=== PATIENT | female | born 1940 | race Caucasian/White ===

== ENCOUNTER 2019-04-21 19:33 | Inpatient (IN) | payer MEDICARE ==
--- NOTE | 2019-04-21 19:53 | ED ---
Abdominal Pain/Female - HPI Summary HPI Summary: This pt is an 87 Y/O F presenting to [facility] with a CC of lower quadrant abdominal pain and weakness that resulted in her being unable to walk today. She states that she has been walking with a walker and was unable to today. She states that yesterday she felt fine. She states that she also has lower quadrant diffuse abdominal pain rated a 3/10 in severity. She states that the pain is increased with palpations. She had a headache as well today. She states that she has been slightly constipated today. She denies any urinary issues. She denies any CP, headaches, and fevers. She states that she has traveled to [place] 3 weeks ago. She has a PMHx of Chrons disease and surgeries to treat it. She has no alleviating factors. - History of Current Complaint Chief Complaint: EDWeakness Stated Complaint: ABD PAIN PER EMS Time Seen by Provider: 04/21/19 19:48 Hx Obtained From: Patient ?: No Onset/Duration: Sudden Onset, Lasting Days - 1 Timing: Constant Severity Initially: Mild Severity Currently: Mild Pain Intensity: 3 Pain Scale Used: 0-10 Numeric Location: Discrete At: RLQ, Discrete At: LLQ Radiates: No Aggravating Factor(s): Other: - palpation Alleviating Factor(s): Nothing Associated Signs and Symptoms: Positive: Negative - headaches, Other: - constipation, increased weakness, SOB. Negative: Fever, Chest Pain, Urinary Symptoms Allergies/Adverse Reactions: Allergies Allergy/AdvReac Type Severity Reaction Status Date / Time apixaban [From Eliquis] Allergy Dizziness Verified 12/29/18 12:41 clindamycin Allergy Unknown Verified 12/29/18 12:41 Reaction Details meperidine [From Demerol] Allergy Vomiting Verified 12/29/18 12:41 Penicillins Allergy Rash Verified 12/29/18 12:41 Sulfa (Sulfonamide Allergy Anaphylatic Verified 12/29/18 12:41 Antibiotics) Shock sulfamethoxazole Allergy Unknown Verified 12/29/18 12:41 [From Bactrim] Reaction Details trimethoprim [From Bactrim] Allergy Unknown Verified 12/29/18 12:41 Reaction Details Home Medications: Home Medications predniSONE 10 mg TAB [Deltasone 10 MG TAB*] 5 mg PO MOWEFR 01/28/14 [History Confirmed 04/21/19] traMADol TAB* [Ultram*] 50 mg PO TID 02/10/14 [History Confirmed 04/21/19] Cholecalciferol TAB* [Vitamin D TAB*] 1,000 unit PO QAM 05/07/14 [History Confirmed 04/21/19] Multivitamin [Multivitamins] 1 cap PO QAM 05/07/14 [History Confirmed 04/21/19] Raloxifene (NF) [Evista(NF)] 60 mg PO QAM 05/07/14 [History Confirmed 04/21/19] Hydrocodone/APAP 5/300 (NF) [Vicodin 5 MG/300 MG(NF)] 1 tab PO Q6HR PRN [History Confirmed 04/21/19] Ascorbic Acid TAB* [Vitamin C TAB*] 500 mg PO QAM 11/23/14 [History Confirmed 04/21/19] Diphenoxylate HCl/Atropine [Lomotil] 1 tab PO BID 09/11/16 [History Confirmed ] Mercaptopurine TAB* [Purinethol TAB*] 50 mg PO DAILY 09/11/16 [History Confirmed 04/21/19] Metoprolol Succinate XL TAB* [Toprol XL TAB*] 25 mg PO DAILY 09/11/16 [History Confirmed 04/21/19] Spironolactone TAB* [Aldactone TAB*] 12.5 mg PO DAILY 09/11/16 [History Confirmed 04/21/19] Oxybutynin XL TAB* [Ditropan XL TAB*] 5 mg PO DAILY 08/02/17 [History Confirmed 04/21/19] Pyridoxine TAB* [Vitamin B6 TAB*] 50 mg PO DAILY 08/02/17 [History Confirmed ] Rivaroxaban TAB(*) [Xarelto 15 mg(*)] 15 mg PO DAILY 08/02/17 [History Confirmed 04/21/19] Diphenoxylat/Atrop 2.5-0.025M* [Lomotil TAB*] 1 tab PO QID PRN 12/18/17 [ History Confirmed 04/21/19] Cyanocobalamin TAB* [Vitamin B12 TAB*] 1,000 mcg PO DAILY 04/21/19 [History Confirmed 04/21/19] Gabapentin CAP(*) [Neurontin 300 CAP(*)] 300 mg PO BID 04/21/19 [History Confirmed 04/21/19] Gabapentin CAP(*) [Neurontin 300 CAP(*)] 600 mg PO BEDTIME 04/21/19 [History Confirmed 04/21/19] Losartan TAB* [Cozaar TAB*] 25 mg PO DAILY 04/21/19 [History Confirmed 04/21/19] raNITIdine SOLN* (NF) ORALSYR [Zantac SOLN* ORALSYR (NF)] 10 ml PO BID 04/21/19 [History Confirmed 04/21/19] PMH/Surg Hx/FS Hx/Imm Hx Previously Healthy: Yes Endocrine/Hematology History: Denies: Hx Diabetes, Hx Thyroid Disease Cardiovascular History: Reports: Hx Hypertension, Hx Valvular Heart Disease - on Xarelto for valve issue, Other Cardiovascular Problems/Disorders - Hx of ducubital ulcer and left foot ulcer, possible circulation issues? Denies: Hx Congestive Heart Failure, Hx Pacemaker/ICD Respiratory History: Denies: Hx Asthma, Hx Chronic Obstructive Pulmonary Disease (COPD), Other Respiratory Problems/Disorders GI History: Reports: Hx Crohn's Disease - controlled with medication, Hx Gastroesophageal Reflux Disease - uses OTC Tums, 1 x week at most, Other GI Disorders - Crohns Disease, necrosis of intestine, Denies: Hx Ulcer History: Reports: Hx Kidney Stones - not in several years, Other Problems/ Disorders - chart states hx of overactive bladder & urinary retention Denies: Hx Renal Disease Musculoskeletal History: Reports: Hx Arthritis, Hx Rheumatoid Arthritis, Hx Back Problems, Hx Orthopedic Injury - Closed Fracture of Metacarpal Bone, Hx Osteoporosis, Hx Scoliosis, Hx Tendonitis - LEGS, FEET, Other Musculoskeletal History - LEFT 2nd TOE AMPUTATION Sensory History: Reports: Hx Cataracts - bi-lat surgery approx 2 yrs ago, Hx Contacts or Glasses - reading, occasionally Denies: Hx Glaucoma, Hx Hearing Aid Opthamlomology History: Reports: Hx Cataracts - bi-lat surgery approx 2 yrs ago , Hx Contacts or Glasses - reading, occasionally Denies: Hx Glaucoma Neurological History: Reports: Hx Nerve Disease, Other Neuro Impairments/ Disorders - neuropathy daniella hands/feet Psychiatric History: Reports: Hx Anxiety Denies: Hx Panic Disorder - Cancer History Cancer Type, Location and Year: SKIN Hx Chemotherapy: No Hx Radiation Therapy: No Hx Palliative Cancer Treatment: No - Surgical History Surgical History: Yes Surgery Procedure, Year, and Place: T&A as . colectomy cmc FROM [facility]. tubal ligation 1974, [facility] [place]. DANIELLA breast biopsy 1974, [facility] [place]. left knee surgery 1980, [facility] [place]. 07/19amputation left 2nd toe, bone removal right 3rd toe 08/12/13. SKIN CANCER REMOVED, 03/24/13, [facility] [place]. RIGHT KNEE REPLACEMENT 2009, [facility] [place] ABDOMINAL HERNIA REPAIR 2011, [facility] [place]. 2009 stents placed for kidney stonesX 3, BILAT CATARACTS 11/2014 Hx Anesthesia Reactions: Yes - difficulty waking up after one of biopsy procedures - Immunization History Immunizations Up to Date: Yes Infectious Disease History: Denies: Hx Clostridium Difficile, Hx Hepatitis, Hx Human Immunodeficiency Virus (HIV), Hx of Known/Suspected MRSA, Hx Shingles, Hx Tuberculosis, Hx Known/ Suspected VRSA, History Other Infectious Disease - Family History Known Family History: Positive: Hypertension - Social History Occupation: Retired Lives: Alone Alcohol Use: None Hx Substance Use: No Substance Use Type: Reports: None Substance Use Comment - Amount & Last Used: opiates for chronic pain Hx Tobacco Use: Yes Smoking Status (MU): Former Smoker Type: Cigarettes Amount Used/How Often: smoked on/off for 10 yrs, 1/2 a pack a day at most Have You Smoked in the Last Year: No Review of Systems Negative: Fever Negative: Chest Pain Positive: Shortness Of Breath Positive: Abdominal Pain - lower quadrants. Negative: Vomiting, Diarrhea, Nausea Negative: Headache All Other Systems Reviewed And Are Negative: Yes Physical Exam - Summary Physical Exam Summary: Appearance: Cachectic chronically ill-appearinglying in bed comfortably Skin: Warm, quite dry and peeling in places, scattered superficial leg wounds that are scabbed over on her legs, no obvious rash Eyes: sclera anicteric, Conjunctival are very pale ENT: Mucus membranes are somewhat dry, pharynx appears normal Neck: Supple, nontender Respiratory: Clear to auscultation, no signs of respiratory distress Cardiovascular: Normal S1, S2. No murmurs. Normal distal pulses in tibial and radial bilaterally. Abdomen: Soft, quite tender on the R side, upper and lower with some guarding noted, normal active bowel sounds present Musculoskeletal: Normal, Strength/ROM Intact Neurological: A&Ox3, awake and alert, mentation is normal, speech is fluent and appropriate Psychiatric: affect is normal, does not appear anxious or depressed Triage Information Reviewed: Yes Vital Signs On Initial Exam: Temp Pulse Resp BP SpO2 FiO2 97.2 F 109 16 84/65 99 04/21/19 19:37 04/21/19 19:37 04/21/19 19:37 04/21/19 19:37 04/21/19 19:37 Vital Signs Reviewed: Yes Procedures - Sedation Patient Received Moderate/Deep Sedation with Procedure: No - Central Line Left Subclavian Central Line Lumen: triple Central Line Procedure: betadine prep Central Line Position: subclavian (L) Anesthesia: Lidocaine - 5 mls, 1% Complications: none Central Line Post Position: sutured, good blood return, position confirmed w/ CXR - CL is in good placement without complications. Reviewed at 0120 Diagnostics - Laboratory Result Diagrams: 04/22/19 04:45 04/22/19 04:45 Lab Statement: Any lab studies that have been ordered have been reviewed, and results considered in the medical decision making process. - Radiology CXR post central line placement Radiology Interpretation Completed By: ED Physician Summary of Radiographic Findings: Central Line is in good placement without complications. Pending offical review. - EKG 2010 Cardiac Rate: Tachycardia - 132 BPM EKG Rhythm: Atrial Fibrillation ST Segment: Normal Ectopy: None Summary of EKG Findings: An EKG at 2010 reveals AFIB with a rate of 132 BPM and RVR, No STEMI. [place] 202004/21/2019. Abdominal Pain Fem Course/Dx - Course Course Of Treatment: This pt is an 87 Y/O F presenting to [facility] with a CC of increased weakness that resulted in her being unable to walk today. She states that she has been walking with a walker and was unable to today. She states that yesterday she felt fine. She states that she also has lower quadrant diffuse abdominal pain rated a 3/10 in severity. She states that the pain is increased with palpations. She had a headache as well today. She states that she has been slightly constipated today. She has a PMHx of Chron's disease with multiple surgeries to treat it. Her PE found that she has very pale conjunctiva, R sided tenderness with guarding, scabbed over scattered leg abrasions, and dry mucus membranes. An EKG at 2010 reveals AFIB with a rate of 132 BPM and RVR, No STEMI. Her WBC is elevated to 56.4. She has abnormal lab values in her Carbon Dioxide of 12, AST of 328, ALT of 174, Alkaline phosphatase of 374, and C-Reactive proteins of 101.57. Her lactic acid is a 6.8. Dr. Lima, GI, was consulted at 2242 and aggrees with the POC which includes fluid recesitation and broad range ABx Tx. The pt was Dx'd with cholecystitis and choledocholithiasis. She will be admitted to [facility] for further care by Dr. Valdes, Hospitalist. Dr. Lima stated that he will be ble for furture consults. Pt received a L sublclavian triple lumen Central line without complication and was confirmed with US. CXR pending to confirm placement. CXR post procedure shows the CL is in good placement without complications - Diagnoses Provider Diagnoses: Cholecystitis, Choledocholithiasis, Sepsis - Provider Notifications Discussed Care Of Patient With: Birdie Valdes Time Discussed With Above Provider: 22:44 Instructed by Provider To: Admit As Inpatient Admit/Transition Orders Completed By ED Provider: Yes - Critical Care Time Critical Care Time: 30-74 min - 35 Discharge ED - Sign-Out/Discharge Documenting (check all that apply): Patient Departure - admitted - Discharge Plan Condition: Stable Disposition: ADMITTED TO [facility] - Billing Disposition and Condition Condition: STABLE Disposition: Admitted to [facility] - Attestation Statements Document Initiated by Norm: Yes Documenting Scribe: Sedrick Acuña Provider For Whom Norm is Documenting (Include Credential): Tramaine Guerra MD Scribe Attestation: Sedrick Ruiz scribed for Tramaine Guerra MD on 04/22/19 at 0645. Scribe Documentation Reviewed: Yes Provider Attestation: The documentation as recorded by the Sedrick mcdonnell accurately reflects the service I personally performed and the decisions made by me, Tramaine Guerra MD Status of Scribe Document: Viewed
[2019-04-21 20:17] LABS: Hematocrit 42 % (35-47); Hemoglobin 13.2 g/dL (12.0-16.0); Mean Corpuscular HGB Conc 31 g/dL (31-36); Mean Corpuscular Hemoglobin 31 pg (27-31); Mean Corpuscular Volume 98 fL (80-97); Mean Platelet Volume 8.4 fL (7.4-10.4); Platelet Count 229 10^3/uL (150-450); Red Blood Count 4.29 10^6 /uL (3.70-4.87); Red Cell Distribution Width 16 % (10-15); White Blood Count 56.7 10^3/uL (3.5-10.8)
[2019-04-21] MEDS ORDERED: Piperacillin/Tazobac ADVAN(*) 3.375 GM in NS 0.9% 100 ML* 100 ML IVPB ONE ×2 (20:23→23:52)
[2019-04-21] MEDS ORDERED: NS 0.9% 1000 ML** 1,000 ML IV ONE ×3 (20:24→22:45)
[2019-04-21 20:34] LABS: Albumin/Globulin Ratio 1.6 (1-3); BUN/Creatinine Ratio 30.6 (8-20); C Reactive Protein 101.57 mg/L (<8.01); Calcium 9.1 mg/dL (8.6-10.3); EGFR African American 24.5 (>60); EGFR Non-African American 20.3 (>60); Globulin 2.5 g/dL (2-4); Total Protein 6.5 g/dL (6.4-8.9)
[2019-04-21 20:38] LABS: Potassium 5.1 mmol/L (3.5-5.0)
[2019-04-21 20:43] LABS: ABS Basophils 0.2 10^3/ul (0-0.2); ABS Lymphocytes 0.4 10^3/ul (1.0-4.8); ABS Monocytes 0.9 10^3/ul (0-0.8); ABS Neutrophils 55.2 10^3/ul (1.5-7.7)
--- OUTSIDE RECORDS SUMMARY | 2019-04-21 21:07 | XMS REPORT | Continuity of Care Document ---
:1940 External Reference #:[id number] Author Name Marty Corey MD Address [address] [place] [id number] Problems Active Problems Provider Date Tricuspid valve regurgitation Onset: 09/11/2018 Chronic kidney disease Onset: 04/17/2018 Squamous cell carcinoma of scalp Onset: 05/01/2017 Bilateral carpal tunnel syndrome Onset: 06/06/2016 Median neuropathy Onset: 02/10/2016 Acute osteomyelitis of ankle and/or foot Onset: 06/13/2013 Idiopathic peripheral neuropathy Onset: 04/14/2013 Essential hypertension Onset: 10/14/2012 Median nerve entrapment Onset: 04/08/2012 Tricuspid valve disorder Onset: 03/18/2009 Atrial fibrillation Onset: 01/23/2017 Mitral valve regurgitation Marty Corey MD Onset: 01/13/2019 Right atrial dilatation Marty Corey MD Onset: 01/13/2019 Left atrial dilatation Marty Corey MD Onset: 01/13/2019 Social History Type Date Description Comments Sex Unknown Tobacco Use Start: Unknown End: Patient is a former smoker quit in the Unknown Smoking Status Reviewed: 02/24/19 Patient is a former smoker quit in the Allergies, Adverse Reactions, Alerts Active Allergies Reaction Severity Comments Date Demerol No Reaction Indicated 10/11/2018 Penicillin V Potassium No Reaction Indicated 10/11/2018 Sulfa No Reaction Indicated 10/11/2018 Cipro Vomiting Moderate 10/11/2018 Medications Active Medications SIG Qnty Indications Ordering Date Provider Hydrocodone-Acetaminop Take One Tablet 120tabs Marty Corey MD 08/15/2018 hen By Mouth Every 6 5-325mg Tablets Hours as Needed - Maximum Daily Dose Of 4 Per Day Diphenoxylate-Atropine oral; take 2 120tabs Marty Corey MD 07/16/2018 tablets by mouth 2.5-0.025mg Tablets twotimes daily as needed Xarelto 1 daily Oral 90tabs Unknown 04/24/2018 15mg Tablets Oxybutynin Chloride oral; take 1 180tabs Marty Corey MD 10/31/2017 5mg tablet by mouth Tablets two times daily Gabapentin Oral; Take 1 120caps Unknown 10/18/2017 300mg Capsules Capsule By Mouth Four Times Daily Ranitidine HCL 10 ML twice 600units Unknown 09/14/2017 75mg/5ML daily Oral Syrup Raloxifene HCL Oral; Take 1 90tabs Unknown 03/19/2017 60mg Tablet By Mouth Tablets Every Day Tramadol HCL Take 1 Tablet By 120tabs Marty Corey MD 03/11/2017 50mg Tablets Mouth Four Times Daily as Needed - Maximum Daily Dose Of 4 Tablets Per Day Metoprolol Succinate 1 daily Oral 30tabs Unknown 04/16/2016 ER 25mg Tablets ER 24HR Prednisone oral; take 1 45tabs Marty Corey MD 03/08/2016 5mg Tablets tablet by mouth once daily on sunday, sunday, and sunday Spironolactone Oral; Take 1/2 45tabs Unknown 04/26/2015 25mg Tablet By Mouth Tablets Every Day Diovan 1 Daily Oral Unknown 09/22/2014 40mg Tablets Immunizations CPT Code Status Date Vaccine Lot # [id number] Given 11/26/2018 Flu High Dose [id number] 92001 Given 11/23/2017 Flu < 65 years 59455 Given 04/23/2017 Tdap - Boostrix/Adacel 44431 Given 10/19/2016 Flu < 65 years 57979 Given 11/30/2014 Prevnar 13 53838 Given 08/07/2007 Pneumovax - for >=2years - PPSV23 62146 Given 02/05/1998 Pneumovax - for >=2years - PPSV23 05418 Refused 04/23/2017 Hep B 11-15yr, Recombivax 1.0ml dose only Vital Signs Date Vital Result Comment 02/24/2019 8:51am BP Systolic 126 mmHg BP Diastolic 72 mmHg Weight 93.00 lb Heart Rate 94 /min Body Temperature 96.8 F O2 % BldC Oximetry 99 % 11/26/2018 11:15am BP Systolic 110 mmHg BP Diastolic 66 mmHg Heart Rate 136 /min Body Temperature 97.5 F O2 % BldC Oximetry 99 % Results Description No Information Available Procedures Description No Information Available Medical Devices Description No Information Available Encounters Type Date Location Provider Dx Diagnosis Office Visit 11/26/2018 11:15a [facility] Marty Corey MD R20.2 Paresthesia of skin I10 Essential (primary) hypertension Z23 Encounter for immunization Assessments Date Code Description Provider 11/26/2018 R20.2 Paresthesia of skin Marty Corey MD 11/26/2018 I10 Essential (primary) hypertension Marty Corey MD 11/26/2018 Z23 Encounter for immunization Marty Corey MD Plan of Treatment 02/24/2019 - Marichuy Curran Labs:Basic Metabolic Panel, Ordered: 02/24/19 Functional Status Description No Information Available Mental Status Description No Information Available Referrals Description No Information Available
--- OUTSIDE RECORDS SUMMARY | 2019-04-21 21:07 | XMS REPORT | Continuity of Care Document ---
:1940 External Reference #:[id number] Author Name Marty Corey MD Address [address] [place] [id number] Problems Active Problems Provider Date Tricuspid valve [...] CPT Code Status Date Vaccine Lot # [id number] Given 11/26/2018 Flu High Dose [id number] 15346 Given 11/23/2017 Flu < 65 years 17776 Given 04/23/2017 Tdap - Boostrix/Adacel 71576 Given 10/19/2016 Flu < 65 years 24879 Given 11/30/2014 Prevnar 13 74312 Given 08/07/2007 Pneumovax - for >=2years - PPSV23 09254 Given 02/05/1998 Pneumovax - for >=2years - PPSV23 [id number] Refused 04/23/2017 Hep B 11-15yr, Recombivax 1.0ml [...] Provider Dx Diagnosis Office Visit 11/26/2018 11:15a [facility] Marty Corey MD R20.2 Paresthesia of skin I10 Essential (primary) hypertension Z23 Encounter for immunization Assessments Date Code Description Provider 02/24/2019 I10 Essential (primary) hypertension Marty Corey MD 02/24/2019 G60.3 Idiopathic progressive neuropathy Marty Corey MD 02/24/2019 M25.549 Pain in joints of unspecified hand Marty Corey MD 11/26/2018 R20.2 Paresthesia of skin Marty Corey MD 11/26/2018 I10 Essential (primary) hypertension Marty Corey MD 11/26/2018 Z23 Encounter for immunization Marty Corey MD Plan of Treatment Future Appointment(s):05/26/2019 9:15 am - Marty Corey MD at [facility]2019 - Marty Corey MDI10 Essential (primary) [id number] Idiopathic progressive [id number] Pain in joints of unspecified hand Functional Status Description No Information Available Mental Status Description No Information Available Referrals Description No Information Available
--- OUTSIDE RECORDS SUMMARY | 2019-04-21 21:07 | XMS REPORT | Continuity of Care Document ---
:1940 External Reference #:[id number] Author Name Marty Corey MD Address [address] [place] [id number] Problems Active Problems Provider Date Tricuspid valve [...] quit in the Unknown Smoking Status Reviewed: 03/03/19 Patient is a former smoker quit in the Allergies, Adverse Reactions, Alerts Active Allergies Reaction Severity Comments Date Demerol No Reaction Indicated 10/11/2018 Penicillin V Potassium No Reaction Indicated 10/11/2018 Sulfa No Reaction Indicated 10/11/2018 Cipro Vomiting Moderate 10/11/2018 Medications Active Medications SIG Qnty Indications Ordering Date Provider Vitamin D one tablet 13caps Marty Corey MD 03/03/2019 (Ergocalciferol) weekly 1.25mg (31732 Ut) Capsules Magnesium one daily 30caps Marty Corey MD 03/03/2019 500mg Capsules Hydrocodone-Acetaminop Take One Tablet 120tabs Marty Corey [...] 09/14/2017 75mg/5ML daily Oral Syrup Raloxifene HCL oral; take 1 90tabs Marty Corey MD 03/19/2017 60mg tablet by mouth Tablets every day Tramadol HCL Take 1 Tablet By 120tabs Marty Corey MD 03/11/2017 50mg Tablets Mouth Four Times Daily as Needed - Maximum Daily Dose Of 4 Per Day Metoprolol Succinate 1 daily Oral 30tabs Unknown 04/16/2016 ER 25mg Tablets ER 24HR Prednisone oral; take 1 45tabs Marty Corey MD 03/08/2016 5mg Tablets tablet by mouth once daily on sunday, sunday, and sunday Spironolactone Oral; Take 1/2 45tabs Unknown 04/26/2015 25mg Tablet By Mouth Tablets Every Day Diovan 1 Daily Oral Unknown 09/22/2014 40mg Tablets Mercaptopurine Unknown 50mg Tablets Immunizations CPT Code Status Date Vaccine Lot # [id number] Given 11/26/2018 Flu High Dose [id number] 64287 Given 11/23/2017 Flu < 65 years 48511 Given 04/23/2017 Tdap - Boostrix/Adacel 36535 Given 10/19/2016 Flu < 65 years 53407 Given 11/30/2014 Prevnar 13 44788 Given 08/07/2007 Pneumovax - for >=2years - PPSV23 68839 Given 02/05/1998 Pneumovax - for >=2years - PPSV23 70470 Refused 04/23/2017 Hep B 11-15yr, Recombivax 1.0ml dose only Vital Signs Date Vital Result Comment 03/03/2019 9:11am BP Systolic 112 mmHg BP Diastolic 64 mmHg Heart Rate 60 /min Body Temperature 97.6 F O2 % BldC Oximetry 99 % 02/24/2019 8:51am BP Systolic 126 mmHg BP Diastolic 72 mmHg Weight 93.00 lb Heart Rate 94 /min Body Temperature 96.8 F O2 % BldC Oximetry 99 % Results Test Acquired Date Facility Test Result H/L Range Note Pthi 02/28/2019 [facility] PTH Intact 222.3 pg/mL High 12-[address] [place] [address] [phone] Calcium (PTH Intact) 8.7 mg/dL Normal 8.6-10.3 Laboratory test 02/25/2019 [facility] Vitamin D <pending> finding [address]) [place] [address] [phone] Laboratory test 02/25/2019 [facility] Magnesium <pending> finding [address] [place] [address] [phone] Basic Metabolic 02/24/2019 [facility] Sodium 142 mmol/L Normal 135-[address] [place] [address] [phone] Potassium 4.0 mmol/L Normal 3.5-5.0 Co2 Carbon Dioxide 23 mmol/L Normal 22-32 Glucose 92 mg/dL Normal 70-100 Blood Urea Nitrogen 26 mg/dL High 6-24 Creatinine 0.99 mg/dL High 0.51-0.95 BUN/Creatinine Ratio 26.3 High 8-20 Calcium 8.2 mg/dL Low 8.6-10.3 Egfr Non- 54.2 >60 Egfr 65.6 >60 1 Chloride 112 mmol/L High 101-111 Anion Gap 7 mmol/L Normal 2-11 Comp Metabolic 02/24/2019 [facility] Sodium 142 mmol/L Normal 135-[address] [place] [address] [phone] Potassium 4.0 mmol/L Normal 3.5-5.0 Chloride 112 mmol/L High 101-111 Co2 Carbon Dioxide 23 mmol/L Normal 22-32 Anion Gap 7 mmol/L Normal 2-11 Glucose 92 mg/dL Normal 70-100 Blood Urea Nitrogen 26 mg/dL High 6-24 Creatinine 0.99 mg/dL High 0.51-0.95 BUN/Creatinine Ratio 26.3 High 8-20 Calcium 8.2 mg/dL Low 8.6-10.3 Total Protein 6.0 g/dL Low 6.4-8.9 Albumin 4.0 g/dL Normal 3.2-5.2 Globulin 2.0 g/dL Normal 2-4 Albumin/Globulin Ratio 2.0 Normal 1-3 Total Bilirubin 1.10 mg/dL High 0.2-1.0 Alkaline Phosphatase 87 U/L Normal 34-104 Alt 18 U/L Normal 7-52 Ast 28 U/L Normal 13-39 Egfr Non- 54.2 >60 Egfr 65.6 >60 2 Laboratory test 02/24/2019 [facility] Magnesium 1.1 mg/dL Low 1.9-2.7 3 finding [address] [place] [address] [phone] Vitamin D Total 25(Oh) 12.9 ng/mL Low 20-50 4 1 Because ethnic data is not always readily available, this report includes an eGFR for both -Americans and non- Americans. The National Kidney Disease Education Program (NKDEP) does not endorse the use of the MDRD equation for patients that are not between the ages of 18 and 70, are , have extremes of body size, muscle mass, or nutritional status, or are non- or non-. According to the National Kidney Foundation, irrespective of diagnosis, the stage of the disease is based on the level of kidney function: Stage Description GFR(mL/min/1.73 m(2)) 1 Kidney damage with normal or decreased GFR 90 2 Kidney damage with mild decrease in GFR 60-89 3 Moderate decrease in GFR 30-59 4 Severe decrease in GFR 15-29 5 Kidney failure <15 (or dialysis) 2 Because ethnic data is not always readily available, this report includes an eGFR for both -Americans and non- Americans. The National Kidney Disease Education Program (NKDEP) does not endorse the use of the MDRD equation for patients that are not between the ages of 18 and 70, are , have extremes of body size, muscle mass, or nutritional status, or are non- or non-. According to the National Kidney Foundation, irrespective of diagnosis, the stage of the disease is based on the level of kidney function: Stage Description GFR(mL/min/1.73 m(2)) 1 Kidney damage with normal or decreased GFR 90 2 Kidney damage with mild decrease in GFR 60-89 3 Moderate decrease in GFR 30-59 4 Severe decrease in GFR 15-29 5 Kidney failure <15 (or dialysis) 3 [id number] 4 Total 25-Hydroxyvitamin D2 and D3 (25-OH-VitD) <10 ng/mL (severe deficiency) 10-19 ng/mL (mild to moderate deficiency) 20-50 ng/mL (optimum levels) 51-80 ng/mL (increased risk of hypercalciuria) >80 ng/mL (toxicity possible) Procedures Description No Information Available Medical Devices Description No Information Available Encounters Type Date Location Provider Dx Diagnosis Office Visit 03/03/2019 9:15a [facility] Pancho Corey MD E83.51 Hypocalcemia E83.42 Hypomagnesemia E21.1 Secondary hyperparathyroidism, not elsewhere classified E55.9 Vitamin D deficiency, unspecified Office Visit 02/24/2019 8:45a [facility] Pancho Corey MD I10 Essential ( primary) hypertension G60.3 Idiopathic progressive neuropathy M25.549 Pain in joints of unspecified hand Office Visit 11/26/2018 11:15a [facility] Pancho Corey MD R20.2 Paresthesia of skin I10 Essential (primary) hypertension Z23 Encounter for immunization Assessments Date Code Description Provider 03/03/2019 E83.51 Hypocalcemia Marty Corey MD 03/03/2019 E83.42 Hypomagnesemia Marty Corey MD 03/03/2019 E21.1 Secondary hyperparathyroidism, not elsewhere Marty Corey MD classified 03/03/2019 E55.9 Vitamin D deficiency, unspecified Marty Corey MD 02/24/2019 I10 Essential (primary) hypertension Marty Corey MD 02/24/2019 G60.3 Idiopathic progressive neuropathy Marty Corey MD 02/24/2019 M25.549 Pain in joints of unspecified hand Marty Corey MD 11/26/2018 R20.2 Paresthesia of skin Marty Corey MD 11/26/2018 I10 Essential (primary) hypertension Marty Corey MD 11/26/2018 Z23 Encounter for immunization Marty Corey MD Plan of Treatment Future Appointment(s):05/26/2019 9:15 am - Marty Corey MD at [facility] Main2019 - Marty Corey MDE83.51 HypocalcemiaComments:You have low calcium, low magnesium, low Vitamin D as well as osteoporosis and a high parathyroid hormone.Please start Vitamin D 50,000 units weeklyPlease start magnesium 500mg a day - [facility] so I printed out prescription just in casePlease see Dr. Redd, endocrinologyto manage thisE83.42 GkwonvypdkmoqkW40.1 Secondary hyperparathyroidism, not elsewhere rhwfjypsysW16.9 Vitamin D deficiency, unspecifiedAllNew Medication:Vitamin D ( Ergocalciferol) 1.25 mg (82243 Ut) - one tablet weeklyMagnesium 500 mg - one dailyReferral:Ronald Redd, Functional Status Description No Information Available Mental Status Description No Information Available Referrals Refer to Reason for Referral Status Appt Date Ronald Redd Vitamin D 12.9, magnesium 1.1,Calcium 8.2, Created Parathyroid hormone 222, osteoporosis. [address] [place] [phone]
--- OUTSIDE RECORDS SUMMARY | 2019-04-21 21:07 | XMS REPORT | Continuity of Care Document ---
:1940 External Reference #:[id number] Author Name Marty Corey MD Address [address] [place] [id number] Problems Active Problems Provider Date Tricuspid valve [...] Marty Corey MD 03/03/2019 (Ergocalciferol) weekly 1.25mg (65253 Ut) Capsules Magnesium one daily 30caps Marty [...] CPT Code Status Date Vaccine Lot # [id number] Given 11/26/2018 Flu High Dose [id number] 74859 Given 11/23/2017 Flu < 65 years 00728 Given 04/23/2017 Tdap - Boostrix/Adacel 20164 Given 10/19/2016 Flu < 65 years 60058 Given 11/30/2014 Prevnar 13 57038 Given 08/07/2007 Pneumovax - for >=2years - PPSV23 74688 Given 02/05/1998 Pneumovax - for >=2years - PPSV23 63222 Refused 04/23/2017 Hep B 11-15yr, Recombivax 1.0ml [...] Test Result H/L Range Note Pthi 02/28/2019 [facility] PTH Intact 222.3 pg/mL High 12-[address] [place] [address] [phone] Calcium (PTH Intact) 8.7 mg/dL Normal 8.6-10.3 Laboratory test 02/25/2019 [facility] Vitamin D <pending> finding [address]) [place] [address] [phone] Laboratory test 02/25/2019 [facility] Magnesium <pending> finding [address] [place] [address] [phone] Basic Metabolic 02/24/2019 [facility] Sodium 142 mmol/L Normal 135-[address] [place] [address] [phone] Potassium 4.0 mmol/L Normal 3.5-5.0 Co2 Carbon Dioxide 23 mmol/L Normal 22-32 Glucose 92 mg/dL Normal 70-100 Blood Urea Nitrogen 26 mg/dL High 6-24 Creatinine 0.99 mg/dL High 0.51-0.95 BUN/Creatinine Ratio 26.3 High 8-20 Calcium 8.2 mg/dL Low 8.6-10.3 Egfr Non- 54.2 >60 Egfr 65.6 >60 1 Chloride 112 mmol/L High 101-111 Anion Gap 7 mmol/L Normal 2-11 Comp Metabolic 02/24/2019 [facility] Sodium 142 mmol/L Normal 135-[address] [place] [address] [phone] Potassium 4.0 mmol/L Normal 3.5-5.0 Chloride 112 [...] Egfr 65.6 >60 2 Laboratory test 02/24/2019 [facility] Magnesium 1.1 mg/dL Low 1.9-2.7 3 finding [address] [place] [address] [phone] Vitamin D Total 25(Oh) 12.9 ng/mL Low [...] 5 Kidney failure <15 (or dialysis) 3 [id number] 4 Total 25-Hydroxyvitamin D2 and D3 (25-OH-VitD) [...] I am not sure ifthis arrived at [facility] so I printed out prescription just in casePlease see Dr. Redd, endocrinologyto manage thisE83.42 ErenswyanmoqpnJ11.1 Secondary hyperparathyroidism, not elsewhere thosuvjxinU11.9 Vitamin D deficiency, unspecifiedAllNew Medication:Vitamin D ( Ergocalciferol) 1.25 mg (04688 Ut) - one tablet weeklyMagnesium 500 mg - one dailyReferral:Ronald Redd, Functional Status Description No Information Available Mental Status Description No Information Available Referrals Refer to Reason for Referral Status Appt Date Ronald Redd Vitamin D 12.9, magnesium 1.1,Calcium 8.2, Created Parathyroid hormone 222, osteoporosis. [address] [place] [phone]
--- OUTSIDE RECORDS SUMMARY | 2019-04-21 21:07 | XMS REPORT | Continuity of Care Document ---
:1940 External Reference #:[id number] Author Name Marty Corey MD Address [address] [place] [id number] Problems Active Problems Provider Date Tricuspid valve [...] Marty Corey MD 03/03/2019 (Ergocalciferol) weekly 1.25mg (81445 Ut) Capsules Magnesium one daily 30caps Marty [...] CPT Code Status Date Vaccine Lot # [id number] Given 11/26/2018 Flu High Dose [id number] 19916 Given 11/23/2017 Flu < 65 years 05554 Given 04/23/2017 Tdap - Boostrix/Adacel 98182 Given 10/19/2016 Flu < 65 years 84261 Given 11/30/2014 Prevnar 13 46702 Given 08/07/2007 Pneumovax - for >=2years - PPSV23 19565 Given 02/05/1998 Pneumovax - for >=2years - PPSV23 08153 Refused 04/23/2017 Hep B 11-15yr, Recombivax 1.0ml [...] Test Result H/L Range Note Pthi 02/28/2019 [facility] PTH Intact 222.3 pg/mL High 12-[address] [place] [address] [phone] Calcium (PTH Intact) 8.7 mg/dL Normal 8.6-10.3 Laboratory test 02/25/2019 [facility] Vitamin D <pending> finding [address] [place] [address] [phone] Laboratory test 02/25/2019 [facility] Magnesium <pending> finding [address] [place] [address] [phone] Basic Metabolic 02/24/2019 [facility] Sodium 142 mmol/L Normal 135-[address] [place] [address] [phone] Potassium 4.0 mmol/L Normal 3.5-5.0 Co2 Carbon Dioxide 23 mmol/L Normal 22-32 Glucose 92 mg/dL Normal 70-100 Blood Urea Nitrogen 26 mg/dL High 6-24 Creatinine 0.99 mg/dL High 0.51-0.95 BUN/Creatinine Ratio 26.3 High 8-20 Calcium 8.2 mg/dL Low 8.6-10.3 Egfr Non- 54.2 >60 Egfr 65.6 >60 1 Chloride 112 mmol/L High 101-111 Anion Gap 7 mmol/L Normal 2-11 Comp Metabolic 02/24/2019 [facility] Sodium 142 mmol/L Normal 135-[address] [place] [address] [phone] Potassium 4.0 mmol/L Normal 3.5-5.0 Chloride 112 [...] Egfr 65.6 >60 2 Laboratory test 02/24/2019 [facility] Magnesium 1.1 mg/dL Low 1.9-2.7 3 finding [address] [place] [address] [phone] Vitamin D Total 25(Oh) 12.9 ng/mL Low [...] 5 Kidney failure <15 (or dialysis) 3 [id number] 4 Total 25-Hydroxyvitamin D2 and D3 (25-OH-VitD) <10 ng/mL (severe deficiency) 10-19 ng/mL (mild to moderate deficiency) 20-50 ng/mL (optimum levels) 51-80 ng/mL (increased risk of hypercalciuria) >80 ng/mL (toxicity possible) Procedures Description No Information Available Medical Devices Description No Information Available Encounters Type Date Location Provider Dx Diagnosis Office Visit 03/03/2019 9:15a [facility] Pancho Corey MD E83.51 Hypocalcemia E83.42 Hypomagnesemia E21.1 Secondary hyperparathyroidism, not elsewhere classified E55.9 Vitamin D deficiency, unspecified Office Visit 02/24/2019 8:45a [facility] Pancho Corey MD I10 Essential ( primary) hypertension G60.3 Idiopathic progressive neuropathy M25.549 Pain in joints of unspecified hand Office Visit 11/26/2018 11:15a [facility] Pancho Corey MD R20.2 Paresthesia of skin [...] 9:15 am - Marty Corey MD at [facility] Main2019 - Marty Corey MDE83.51 HypocalcemiaComments:You have low calcium, low magnesium, low Vitamin D as well as osteoporosis and a high parathyroid hormone.Please start Vitamin D 50,000 units weeklyPlease start magnesium 500mg a day - I am not sure ifthis arrived at [facility] so I printed out prescription just in casePlease see Dr. Redd, endocrinologyto manage thisE83.42 IccffzgxobbxmsS42.1 Secondary hyperparathyroidism, not elsewhere rjdftslfwvP14.9 Vitamin D deficiency, unspecifiedAllNew Medication:Vitamin D ( Ergocalciferol) 1.25 mg (92198 Ut) - one tablet weeklyMagnesium 500 mg - one dailyReferral:Ronald Redd, Functional Status Description No Information Available Mental Status Description No Information Available Referrals Refer to Reason for Referral Status Appt Date Ronald Redd Vitamin D 12.9, magnesium 1.1,Calcium 8.2, Created Parathyroid hormone 222, osteoporosis. [address] [place] [phone]
[2019-04-21 22:53] LABS: Urine Appearance Turbid; Urine Bilirubin Negative (Negative); Urine Blood 2+ (Negative); Urine Color Amber; Urine Glucose Negative (Negative); Urine Ketones Negative (Negative); Urine Nitrite Negative (Negative); Urine Protein 1+(30 mg/dL) (Negative); Urine Specific Gravity 1.011 (1.010-1.030); Urine Urobilinogen Negative (Negative)
[2019-04-21 22:56] LABS: Urine Bacteria 1+ (Absent); Urine Red Blood Cell 3+(>10/hpf) (Absent); Urine White Blood Cell 3+(>20/hpf) (Absent)
[2019-04-21] MEDS ORDERED: Zosyn per Pharmacy* NOTE FOLLOW UP SCH (23:45)
[2019-04-21] MEDS ORDERED: NS 0.9% 1000 ML** 1,000 ML IV SCH (23:45)
[2019-04-21] MEDS ORDERED: Ondansetron INJ* 2 MG/ML VIAL IV PRN (23:52)
[2019-04-22] MEDS: Norepinephrine 16MCG/ML IVPRE* 4,000 MCG/250 ML BAG IV SCH ×5 (00:34→10:14)
[2019-04-22 00:44] LABS: INR 3.71 (0.82-1.09)
[2019-04-22 00:45] LABS: Albumin 2.8 g/dL (3.2-5.2); Albumin/Globulin Ratio 1.3 (1-3); Calcium 7.3 mg/dL (8.6-10.3); EGFR African American 31.6 (>60); EGFR Non-African American 26.1 (>60); Globulin 2.1 g/dL (2-4); Potassium 4.7 mmol/L (3.5-5.0); Total Protein 4.9 g/dL (6.4-8.9)
[2019-04-22] MEDS ORDERED: Cefepime 2 GM in Dextrose(*) 2 GM/50 ML BAG IV SCH (01:00)
[2019-04-22] MEDS ORDERED: Cefepime 1 GM in Dextrose(*) 1 GM/50 ML q12h (Duplex) IV ONE (01:00)
[2019-04-22] MEDS ORDERED: Cefepime ADVAN(*) 1 GM in NS 0.9% 50 ML* 50 ML IVPB SCH (01:00)
[2019-04-22] MEDS: metroNIDAZOLE IV 500 MG/100ML* 500 MG/100 ML BAG IVPB SCH ×3 (01:34→17:04)
[2019-04-22] MEDS: Cefepime(*) 1 GM in NS 0.9% 50 ML* 50 ML IVPB SCH ×2 (01:50→12:02)
[2019-04-22] MEDS: Hydrocortisone INJ* 100 MG/2 ML VIAL (in pyxis) IV SCH ×3 (01:50→17:04)
--- NOTE | 2019-04-22 02:08 | PN ---
Sepsis Event Evaluation Date of Evaluation: 04/22/19 Time of Evaluation: 02:05 Current Stage of Sepsis: Septic Shock Vital Signs - Last 12 Hours: Vital Signs - 12 hr Temp Pulse Resp BP Pulse Ox 04/22/19 02:00 98.2 F 111 19 109/62 100 04/22/19 01:55 98.4 F 111 17 97/69 100 04/22/19 01:50 98.4 F 109 14 104/54 100 04/22/19 01:45 98.4 F 104 17 104/74 100 04/22/19 01:40 98.6 F 110 22 113/72 92 04/22/19 01:35 98.6 F 122 15 84/57 100 04/22/19 01:30 98.6 F 108 16 80/52 99 04/22/19 01:25 98.6 F 123 15 70/58 100 04/22/19 01:21 98.6 F 113 14 69/45 99 04/22/19 01:16 118 9 65/49 100 04/22/19 01:14 98.2 F 114 18 89/59 94 04/22/19 00:53 98.2 F 141 12 89/59 77 04/22/19 00:45 98.2 F 128 18 74/54 95 04/22/19 00:39 98.1 F 107 24 04/22/19 00:38 98.1 F 116 21 04/22/19 00:17 97.9 F 126 17 83/63 95 04/22/19 00:15 97.9 F 109 15 04/22/19 00:00 97.7 F 121 15 94 04/21/19 23:53 97.7 F 152 24 88 04/21/19 23:52 97.7 F 139 17 89/54 87 04/21/19 23:45 97.7 F 117 14 85/57 98 04/21/19 23:15 97.7 F 131 13 84/61 90 04/21/19 23:00 97.9 F 117 20 93 04/21/19 22:45 97.3 F 141 18 81/64 92 04/21/19 22:00 16 04/21/19 21:45 128 16 90/67 90 04/21/19 21:15 136 21 92/71 93 04/21/19 21:00 126 19 89 04/21/19 20:45 120 22 101/70 04/21/19 20:15 17 92/62 04/21/19 20:00 24 04/21/19 19:59 22 04/21/19 19:37 97.2 F 109 16 84/65 99 Lactic Acid: 04/21/19 04/22/19 20:49 00:44 Lactic Acid 6.8 H* 2.5 H* - Cardiopulmonary Exam Capillary Refill: Delayed Respiratory: Symmetrical Chest Expansion and Respiratory Effort Cardiovascular: NL Sounds; No Murmurs; No JVD - Peripheral Pulse Exam Radial Pulses: Bilateral Normal Pedal Pulses: Bilateral Diminished - Skin Exam Skin Exam: Pale - Amirah Coma Scale Best Eye Response: 3 - To Speech Best Motor Response: 6 - Obeys Commands Best Verbal Response: 5 - Oriented Coma Scale Total: 14 Assess/Plan/Problems-Billing Assessment: 79 y/o presenting with spetic shock on pressors, Dr Dumont aware, central shanti e placed by ed, lactic improved, making uring, drowsy, kidney function improved but still with pressors, continue abx, suspect source r/t cholangitis, plan for ercp in am will need reversal for xarelto,
--- NOTE | 2019-04-22 03:51 | HP ---
CC: Dr. Corey; Dr. Lima; Dr. Dumont * HISTORY AND PHYSICAL: DATE OF ADMISSION: 04/22/19 PRIMARY CARE PROVIDER: Dr. Corey. CONSULTING ACCOUNTS RECEIVABLE SUPERVISOR: Dr. Lima. CONSULTING CONSTRUCTION SERVICES TECHNICIAN: Dr. Dumont. ATTENDING PHYSICIAN WHILE IN THE HOSPITAL: Dr. Birdie Valdes * (report being dictated by Antoine Watkins NP). CHIEF COMPLAINT: Weakness. HISTORY OF PRESENT ILLNESS: Mrs. Perry is a 79-year-old female patient. She carries a history of melanoma, cachexia, Crohn's, arthritis, runny nose, neuropathy, GERD, hypertension, urinary retention, history of atrial flutter, history of left foot ulcer and right gluteal decubitus in the past, who really is unable to give much history. She is rather drowsy at times. On exam, she is stating though that she has been feeling weak, it has gotten worse over the last 24 hours. Although, when reviewing records from the ER, she reported that she had been having lower abdominal pain, nausea, and weakness that began last week. She says that she was feeling different. She was concerned because she was not getting better, the progressing nature of the weakness, and the pain was just getting worse. So, she decided to finally come into the ER. It is unclear why she waited so long. She did admit to feeling cold and not able to get warm. She notes that today she was really unable to walk because she felt so weak and then she said that she felt fine yesterday. She did again get diffuse abdominal pain, 3/10 in severity. She has been feeling constipated and she says that she has not been feeling well. She came into the ER. She denied any vomiting or diarrhea. No cold. No cough symptoms. No shortness of breath. She was evaluated and it was noted that she appeared to be in septic shock, most likely related to cholangitis. So because of these findings, we were asked to evaluate for admission. PAST MEDICAL HISTORY: Significant for: 1. Atrial flutter, on chronic Xarelto, which she took prior to coming into the ER tonight. 2. Melanoma. 3. Crohn's. 4. Arthritis. 5. Runny nose. 6. Neuropathy. 7. GERD. 8. Hypertension. 9. Urinary retention, on chronic York. 10. Left foot ulcer. 11. Right gluteal decub. PAST SURGICAL HISTORY: She has had 2 bowel resections related to Crohn's. MEDICATIONS: Home meds include: 1. Zantac 10 mg p.o. b.i.d. 2. Lomotil 1 tab p.o. 4 times a day as needed. 3. Tramadol 50 mg p.o. t.i.d. 4. Vitamin B6 50 mg p.o. daily. 5. Oxybutynin 5 mg daily. 6. Hydrocodone 1 tablet every 6 hours as needed. 7. B12 1000 mcg p.o. daily. 8. Evista 60 mg p.o. q.a.m. 9. Multivitamin 1 tablet daily. 10. Lomotil 1 tab p.o. b.i.d. 11. Vitamin D 1000 units p.o. daily. 12. Vitamin C 500 mg p.o. q.a.m. 13. Mercaptopurine 50 mg p.o. daily. 14. Gabapentin 600 mg at bedtime. 15. Prednisone 5 mg Sunday, Sunday, Sunday. 16. Gabapentin 300 mg p.o. b.i.d. 17. Aldactone 12.5 mg daily. 18. Metoprolol XL 25 mg daily. 19. Cozaar 25 mg daily. 20. Xarelto 15 mg p.o. daily. ALLERGIES: Allergies to medications include APIXABAN, CLINDAMYCIN, DEMEROL, PENICILLIN, SULFA, and BACTRIM. FAMILY HISTORY: Again at this point, is unknown. She says that both of them of old age. According to her, they did not have medical problems. SOCIAL HISTORY: She is a former smoker. She does not drink alcohol. Surrogate decision maker is her son, Pj, who I did try to call to discuss what is going on with his mother. REVIEW OF SYSTEMS: There is no documented fever. She denied having any significant weight change. There is no ear discharge. There was no rhinorrhea. No sore throat. No thyroid enlargement. She denied chest pain. No shortness of breath. No orthopnea. No nocturnal dyspnea. She did admit to abdominal pain. No nausea. No vomiting. No dysuria. No frequency. There was no loss of consciousness. No pruritus and no skin ulcerations. Review of 14 systems completed, all others are negative. PHYSICAL EXAMINATION GENERAL: At this time, Mrs. Perry is a 79-year-old female patient. She is cachetic in nature. She is sitting in the ED stretcher. She does not appear to be in any acute distress. VITAL SIGNS: Blood pressure 89/54. Her last pulse was 148; I know on the monitor at this moment, she is 107. Temperature was 97.7, respirations 18, saturations 98% on 2 liters. HEENT: Head: Atraumatic, normocephalic. Eyes: EOMs are intact. Sclerae with some icterus noted and some jaundice. Throat: Oral mucosa appears to be dry. No oropharyngeal erythema. LUNGS: Diminished in the bases. No wheezes, rales or rhonchi. HEART: Heart sounds S1, S2. Irregularly irregular rate. No murmurs, rubs or gallops. ABDOMEN: Distended. There was tenderness in the right upper quadrant. Bowel sounds present in all 4 quadrants. EXTREMITIES: Pulses were diminished, but palpable. She is moving all 4 extremities with 5/5 strength. NEUROLOGIC: She is drowsy, but she will awaken and answer simple questions. Her speech again, she is soft spoken, but I did not appreciate dysarthria. There is no facial drooping. No focal weaknesses are noted. SKIN: Grossly intact. DIAGNOSTIC STUDIES/LAB DATA: Labs today reveal WBC of 56.7, RBC of 4.29, hemoglobin of 13.2, hematocrit 42, platelet count 229. Her sodium was 140, potassium 5.1, chloride 111, bicarb 12, BUN 71, creatinine 2.32, glucose 104, lactic 6.8. Calcium 9.1. Total bili 5, AST 328, ALT 174, alk phos 374. CRP of 101, lipase 76. Urine showed 1+ protein, 2+ blood, 2+ leukocyte esterase, 3 + wbc's, 3 rbc's, 1+ bacteria. She had imaging in the ER with a CT of the abdomen and pelvis, which impression : Cholelithiasis with distended gall-bladder. There is distention of the common bile duct measuring 16 mm with several large distal common bile duct calculi consistent with choledocholithiasis, nonobstructing bilateral renal calculi with mild right hydronephrosis and question of a 2-mm calculus in the distal right ureter. Mild distention and retention of contrast in the distal esophagus, which may reflect poor peristaltic clearance, obstruction at the level of the GE junction is not excluded, mild stool distention in the rectum which may reflect impaction. She also had a gallbladder ultrasound obtained today, which showed impression: Mild hepatomegaly, intrahepatic biliary distention and dilated CBD measuring 18 mm of sludge. Distended gallbladder with sludge and stones and slight wall thickening up to 4 mm, slight distention of the pancreatic duct measuring 4 to 5 mm, right hydronephrosis, urinary bladder debris noted. She did have an EKG obtained today, which does show atrial fibrillation, rate of 132. She had no ST elevation. She had some flattening of the T waves in lead III and aVF but no T wave inversion, flattening in lead II as well. We we looked back, previously flattening was not present of those T waves previously, but she did appear to have a normal sinus rhythm with a rate of 88 and some PACs noted. Old medical records were reviewed. ASSESSMENT AND PLAN: Mrs. Perry is a 79-year-old female patient with a complex medical history coming into the ED today for evaluation of abdominal pain and weakness, found to have choledocholithiasis, mostly like cholangitis and septic shock. She will be admitted under inpatient status to the ICU for: 1. Septic shock. I did touch base with Dr. Dumont. I do note that she is somewhat drowsy on exam. I suspect this is probably from the metabolic encephalopathy related to the sepsis. She does have acute kidney injury, which is most likely acute tubular necrosis secondary to sepsis. We will trend her creatinine. A York is in place. We will monitor her I's and O's. She received 3 L bolus here in the ED, but despite this, pressure is remaining in the 80s systolic. I will start her on pressors to try to maintain a MAP greater than 65. Central line has been placed by Dr. Guerra. She did receive antibiotics and she has been pancultured. I am ordering cefepime and Flagyl given the PENICILLIN allergy. GI has been consulted for a possible ERCP. I suspect the source is definitely related to the common bile duct and cholangitis. She was exquisitely tender. I relayed this concern to Dr. Dumont and to Dr. Lima. At this point, she will be n.p.o. for possible ERCP tomorrow. We will need to consider reversal of the Xarelto because she took it last night prior to coming in. We may need to consider Kcentra, but I would give this tomorrow when it is closer to the proposed ERCP. We will continue with again supportive care. I tried to leave message with the patient's son to update them on her condition as again she is showing signs of septic shock. I will repeat her lactic acid. We will repeat her BMP at midnight as well and due to the low bicarb, I am going to be getting an ABG as well, which I suspect it most likely is metabolic acidosis related to sepsis. 2. Choledocholithiasis: GI consulted. I suspect she has cholangitis. Antibiotics have been ordered. She will be n.p.o. Hydration has been ordered and we will try to reverse her Xarelto tomorrow. 3. Melanoma. Follow with PCP. We will hold her chemo agents at this point and continue to follow. 4. Crohn's. She is on chronic steroids. I am going to give her stress dose steroids for this. 5. Neuropathy: Given the altered mental status, I will hold her gabapentin. We will reintroduce as needed when we were able to. 6. Gastroesophageal reflux disease. Continue with her current medical regimen. She is n.p.o. I will order some Protonix IV for her. 7. Hypertension. In the setting of this acute illness, I will hold her medications. We will restart when able. 8. Urinary retention. York is in place. 9. Atrial flutter. Again, her rate at this point is in the lower 100s. It is well controlled. We will monitor. I have held her beta-shelton given the hypotension. If we need to, we can give her p.r.n. beta blockers blood pressure allowing. Again her Xarelto was taken last night prior to coming into ER; this will be held. We will possibly need to reverse this for possible ERCP. 10. DVT prophylaxis. She is on Xarelto. I will go ahead and put her on SCDs. I am not going to start any DVT prophylaxis until after the ERCP. 11. Code status. She wishes to be a full code. 12. Fluids, electrolytes, and nutrition. She is n.p.o. 13. Acute kidney injury. I suspect this is acute tubular necrosis secondary to sepsis and septic shock. We will hydrate her and follow this closely. She is making her urine. TIME SPENT: Time spent on the admission, which was critical care time 90 minutes, greater than half the time was spent [id number] with the patient obtaining my history of physical; other half time spent going over the plan of care with the patient and implementing plan of care. I discussed the plan of care with my attending, Dr. Valdes; she is in agreement. ANTOINE WATKINS, JULIO [id number]/CPS #: [id number] MAIN
[2019-04-22 04:56] LABS: Hematocrit 35 % (35-47); Hemoglobin 11.1 g/dL (12.0-16.0); Mean Corpuscular HGB Conc 32 g/dL (31-36); Mean Corpuscular Hemoglobin 31 pg (27-31); Mean Corpuscular Volume 97 fL (80-97); Mean Platelet Volume 8.9 fL (7.4-10.4); Platelet Count 207 10^3/uL (150-450); Red Blood Count 3.56 10^6 /uL (3.70-4.87); Red Cell Distribution Width 16 % (10-15); White Blood Count 75.9 10^3/uL (3.5-10.8)
[2019-04-22 05:14] LABS: Albumin/Globulin Ratio 1.3 (1-3); BUN/Creatinine Ratio 34.4 (8-20); EGFR African American 32.2 (>60); EGFR Non-African American 26.6 (>60); Globulin 2.3 g/dL (2-4); Total Bilirubin 4.3 mg/dL (0.2-1.0); Total Protein 5.3 g/dL (6.4-8.9)
[2019-04-22 05:39] LABS: Potassium 5.2 mmol/L (3.5-5.0)
[2019-04-22] MEDS ORDERED: Lactated Ringers 1000 ML Bag* 1,000 ML IV ONE (06:02)
[2019-04-22 06:20] LABS: INR 4.42 (0.82-1.09)
[2019-04-22 07:40] LABS: Microcytosis 1+
[2019-04-22 07:41] LABS: ABS Basophils 0.3 10^3/ul (0-0.2); ABS Lymphocytes 0.5 10^3/ul (1.0-4.8); ABS Neutrophils 74.1 10^3/ul (1.5-7.7); Lymphocyte % 0.7 %
[2019-04-22] MEDS: Pantoprazole IV* 40 MG IV SCH (08:41)
[2019-04-22 11:09] LABS: INR 2.02 (0.82-1.09)
[2019-04-22 12:35] LABS: BUN/Creatinine Ratio 36.6 (8-20); Calcium 7.2 mg/dL (8.6-10.3); EGFR African American 34.6 (>60); EGFR Non-African American 28.6 (>60)
[2019-04-22] MEDS ORDERED: Norepinephrine 16MCG/ML IVPRE* 4,000 MCG/250 ML BAG IV SCH (13:35)
--- NOTE | 2019-04-22 15:06 | PN ---
<Tegan Whaley - Last Filed: 04/22/19 15:16> Date of Service: 04/22/19 Critical Care Services: Overnight events, Patient received 3L IV NS in ED, and currently running 100ml/h LR. She was alert and felt much better this morning, oriented to time place person. Pain controlled, no nausea,vomiting, no fever. On Levophed 15 support this morning, BP 110-120, HR in 120s Tele: Afib with heart rate 100-140 Vent: not on O2 Vital Signs: Temp Pulse Resp BP SpO2 FiO2 98.4 F 135 20 95/70 99 04/22/19 14:15 04/22/19 14:15 04/22/19 14:15 04/22/19 14:15 04/22/19 14:15 Physical Exam: General: cachetic looking, skinny, NAD HEENT: Normocephalic, atraumatic, non-icteric sclera, dry and blood tinged lip and oral mucosa Neck: soft, supple, no JVD CV Fast rate and rhythm. no murmurs or rubs Pulm/Chest: clear anteriorly Abdomen/GI: mid tenderness in RLQ, BS+ MSK/Skin: warm, dry, intact, +2 pulses+, no edema or cyanosis Extremity: scaly erythematous bilateral anterior shins- chronic Neuro: opens eyes widely, eye tracking, but not obeying command Line: RIJ dialysis catheter R femoral cathter R arm arterial iv Fluid Balance (Past 24 Hours): I= 702 O=180 Net= 222 Intake & Output 04/20/19 04/21/19 04/22/19 04/23/19 06:59 06:59 06:59 06:59 Intake Total 702 1342 Output Total 480 520 Balance 222 822 Weight 39.829 kg Intake: IV Fluids 534 924 ABX - CEFEPIME 60 ABX - FLAGYL 109 LR 0 705 NS (0.9%) 534 50 IVPB 168 ABX - CEFEPIME 57 ABX - FLAGYL 111 Medicated IV 418 Levophed 418 Output: Maurer 480 520 Labs: Laboratory Results - last 24 hr 04/21/19 04/21/19 04/21/19 20:05 20:05 20:49 WBC 56.7 H RBC 4.29 Hgb 13.2 Hct 42 MCV 98 H MCH 31 MCHC 31 RDW 16 H Plt Count 229 MPV 8.4 Neut % (Auto) Not Reportable Lymph % (Auto) Not Reportable [place] % (Auto) Not Reportable Eos % (Auto) Not Reportable Baso % (Auto) Not Reportable Absolute Neuts (auto) 55.2 H Absolute Lymphs (auto) 0.4 L Absolute Monos (auto) 0.9 H Absolute Eos (auto) 0.0 Absolute Basos (auto) 0.2 Absolute Nucleated RBC 0.0 Immature Gran % 24.0 H Neutrophils % 66.0 Band Neutrophils % 24.0 H Lymphocytes % 6.0 Monocytes % 4.0 Metamyelocytes % Nucleated RBC % 0.0 Normal RBC Morphology Normal Anisocytosis Microcytosis INR (Anticoag Therapy) Patient Temperature ABG pH ABG pH (Temp Correct) ABG pCO2 ABG pCO2 (Temp Corrct ABG pO2 ABG pO2 (Temp Correct ABG HCO3 ABG O2 Saturation ABG Base Excess Respiration Rate O2 Delivery Device Ventilator Type Vent Mode FiO2 Inspiratory Time PEEP Pressure Support Pressure Control EPAP IPAP BiPAP Sodium 140 Potassium 5.1 H Chloride 111 Carbon Dioxide 12 L* Anion Gap 17 H BUN 71 H Creatinine 2.32 H Est GFR ( Amer) 24.5 Est GFR (Non-Af Amer) 20.3 BUN/Creatinine Ratio 30.6 H Glucose 104 H Lactic Acid Calcium 9.1 Total Bilirubin 5.00 H AST 328 H ALT 174 H Alkaline Phosphatase 374 H C-Reactive Protein 101.57 H Total Protein 6.5 Albumin 4.0 Globulin 2.5 Albumin/Globulin Ratio 1.6 Lipase 76 Urine Color Urine Appearance Urine pH Ur Specific [place] Urine Protein Urine Ketones Urine Blood Urine Nitrate Urine Bilirubin Urine Urobilinogen Ur Leukocyte Esterase Urine WBC (Auto) Urine RBC (Auto) Urine Bacteria Urine Glucose Blood Type A Positive Antibody Screen Negative 04/21/19 04/21/19 04/22/19 20:49 22:43 00:00 WBC RBC Hgb Hct MCV MCH MCHC RDW Plt Count MPV Neut % (Auto) Lymph % (Auto) [place] % (Auto) Eos % (Auto) Baso % (Auto) Absolute Neuts (auto) Absolute Lymphs (auto) Absolute Monos (auto) Absolute Eos (auto) Absolute Basos (auto) Absolute Nucleated RBC Immature Gran % Neutrophils % Band Neutrophils % Lymphocytes % Monocytes % Metamyelocytes % Nucleated RBC % Normal RBC Morphology Anisocytosis Microcytosis INR (Anticoag Therapy) 3.71 H Patient Temperature ABG pH ABG pH (Temp Correct) ABG pCO2 ABG pCO2 (Temp Corrct ABG pO2 ABG pO2 (Temp Correct ABG HCO3 ABG O2 Saturation ABG Base Excess Respiration Rate O2 Delivery Device Ventilator Type Vent Mode FiO2 Inspiratory Time PEEP Pressure Support Pressure Control EPAP IPAP BiPAP Sodium Potassium Chloride Carbon Dioxide Anion Gap BUN Creatinine Est GFR ( Amer) Est GFR (Non-Af Amer) BUN/Creatinine Ratio Glucose Lactic Acid 6.8 H* Calcium Total Bilirubin AST ALT Alkaline Phosphatase C-Reactive Protein Total Protein Albumin Globulin Albumin/Globulin Ratio Lipase Urine Color [place] Urine Appearance Turbid Urine pH 6.0 Ur Specific [place] 1.011 Urine Protein 1+(30 mg/dl) A Urine Ketones Negative Urine Blood 2+ A Urine Nitrate Negative Urine Bilirubin Negative Urine Urobilinogen Negative Ur Leukocyte Esterase 3+ A Urine WBC (Auto) 3+(>20/hpf) A Urine RBC (Auto) 3+(>10/hpf) A Urine Bacteria 1+ A Urine Glucose Negative Blood Type Antibody Screen 04/22/19 04/22/19 04/22/19 00:30 00:44 00:44 WBC RBC Hgb Hct MCV MCH MCHC RDW Plt Count MPV Neut % (Auto) Lymph % (Auto) [place] % (Auto) Eos % (Auto) Baso % (Auto) Absolute Neuts (auto) Absolute Lymphs (auto) Absolute Monos (auto) Absolute Eos (auto) Absolute Basos (auto) Absolute Nucleated RBC Immature Gran % Neutrophils % Band Neutrophils % Lymphocytes % Monocytes % Metamyelocytes % Nucleated RBC % Normal RBC Morphology Anisocytosis Microcytosis INR (Anticoag Therapy) Patient Temperature Not Reportable ABG pH 7.29 L ABG pH (Temp Correct) Not Reportable ABG pCO2 23 L ABG pCO2 (Temp Corrct Not Reportable ABG pO2 142 H ABG pO2 (Temp Correct Not Reportable ABG HCO3 14.4 L ABG O2 Saturation 99.3 H ABG Base Excess -13.5 L Respiration Rate Not Reportable O2 Delivery Device N/c Ventilator Type Not Reportable Vent Mode Not Reportable FiO2 Not Reportable Inspiratory Time Not Reportable PEEP Not Reportable Pressure Support Not Reportable Pressure Control Not Reportable EPAP Not Reportable IPAP Not Reportable BiPAP Not Reportable Sodium 141 Potassium 4.7 Chloride 119 H Carbon Dioxide 11 L* Anion Gap 11 BUN 67 H Creatinine 1.86 H Est GFR ( Amer) 31.6 Est GFR (Non-Af Amer) 26.1 BUN/Creatinine Ratio 36.0 H Glucose 92 Lactic Acid 2.5 H* Calcium 7.3 L Total Bilirubin 4.00 H AST 243 H ALT 140 H Alkaline Phosphatase 239 H C-Reactive Protein Total Protein 4.9 L Albumin 2.8 L Globulin 2.1 Albumin/Globulin Ratio 1.3 Lipase Urine Color Urine Appearance Urine pH Ur Specific [place] Urine Protein Urine Ketones Urine Blood Urine Nitrate Urine Bilirubin Urine Urobilinogen Ur Leukocyte Esterase Urine WBC (Auto) Urine RBC (Auto) Urine Bacteria Urine Glucose Blood Type Antibody Screen 04/22/19 04/22/19 04/22/19 04:45 04:45 04:45 WBC 75.9 H RBC 3.56 L Hgb 11.1 L Hct 35 MCV 97 MCH 31 MCHC 32 RDW 16 H Plt Count 207 MPV 8.9 Neut % (Auto) 97.7 Lymph % (Auto) 0.7 [place] % (Auto) 1.3 Eos % (Auto) 0.0 Baso % (Auto) 0.3 Absolute Neuts (auto) 74.1 H Absolute Lymphs (auto) 0.5 L Absolute Monos (auto) 1.0 H Absolute Eos (auto) 0.0 Absolute Basos (auto) 0.3 H Absolute Nucleated RBC 0.0 Immature Gran % 12.0 H Neutrophils % 85.0 Band Neutrophils % 11.0 H Lymphocytes % 1.0 Monocytes % 2.0 Metamyelocytes % 1.0 Nucleated RBC % 0.0 Normal RBC Morphology Not Reportable Anisocytosis 2+ Microcytosis 1+ INR (Anticoag Therapy) Patient Temperature ABG pH ABG pH (Temp Correct) ABG pCO2 ABG pCO2 (Temp Corrct ABG pO2 ABG pO2 (Temp Correct ABG HCO3 ABG O2 Saturation ABG Base Excess Respiration Rate O2 Delivery Device Ventilator Type Vent Mode FiO2 Inspiratory Time PEEP Pressure Support Pressure Control EPAP IPAP BiPAP Sodium 142 Potassium 5.2 H Chloride 119 H Carbon Dioxide 10 L* Anion Gap 13 H BUN 63 H Creatinine 1.83 H Est GFR ( Amer) 32.2 Est GFR (Non-Af Amer) 26.6 BUN/Creatinine Ratio 34.4 H Glucose 85 Lactic Acid 3.1 H* Calcium 7.0 L Total Bilirubin 4.30 H AST 255 H ALT 148 H Alkaline Phosphatase 229 H C-Reactive Protein Total Protein 5.3 L Albumin 3.0 L Globulin 2.3 Albumin/Globulin Ratio 1.3 Lipase Urine Color Urine Appearance Urine pH Ur Specific [place] Urine Protein Urine Ketones Urine Blood Urine Nitrate Urine Bilirubin Urine Urobilinogen Ur Leukocyte Esterase Urine WBC (Auto) Urine RBC (Auto) Urine Bacteria Urine Glucose Blood Type Antibody Screen 04/22/19 04/22/19 04/22/19 05:44 10:48 10:48 WBC RBC Hgb Hct MCV MCH MCHC RDW Plt Count MPV Neut % (Auto) Lymph % (Auto) [place] % (Auto) Eos % (Auto) Baso % (Auto) Absolute Neuts (auto) Absolute Lymphs (auto) Absolute Monos (auto) Absolute Eos (auto) Absolute Basos (auto) Absolute Nucleated RBC Immature Gran % Neutrophils % Band Neutrophils % Lymphocytes % Monocytes % Metamyelocytes % Nucleated RBC % Normal RBC Morphology Anisocytosis Microcytosis INR (Anticoag Therapy) 4.42 H 2.02 H Patient Temperature ABG pH ABG pH (Temp Correct) ABG pCO2 ABG pCO2 (Temp Corrct ABG pO2 ABG pO2 (Temp Correct ABG HCO3 ABG O2 Saturation ABG Base Excess Respiration Rate O2 Delivery Device Ventilator Type Vent Mode FiO2 Inspiratory Time PEEP Pressure Support Pressure Control EPAP IPAP BiPAP Sodium Potassium Chloride Carbon Dioxide Anion Gap BUN Creatinine Est GFR ( Amer) Est GFR (Non-Af Amer) BUN/Creatinine Ratio Glucose Lactic Acid 1.7 Calcium Total Bilirubin AST ALT Alkaline Phosphatase C-Reactive Protein Total Protein Albumin Globulin Albumin/Globulin Ratio Lipase Urine Color Urine Appearance Urine pH Ur Specific [place] Urine Protein Urine Ketones Urine Blood Urine Nitrate Urine Bilirubin Urine Urobilinogen Ur Leukocyte Esterase Urine WBC (Auto) Urine RBC (Auto) Urine Bacteria Urine Glucose Blood Type Antibody Screen 04/22/19 12:07 WBC RBC Hgb Hct MCV MCH MCHC RDW Plt Count MPV Neut % (Auto) Lymph % (Auto) [place] % (Auto) Eos % (Auto) Baso % (Auto) Absolute Neuts (auto) Absolute Lymphs (auto) Absolute Monos (auto) Absolute Eos (auto) Absolute Basos (auto) Absolute Nucleated RBC Immature Gran % Neutrophils % Band Neutrophils % Lymphocytes % Monocytes % Metamyelocytes % Nucleated RBC % Normal RBC Morphology Anisocytosis Microcytosis INR (Anticoag Therapy) Patient Temperature ABG pH ABG pH (Temp Correct) ABG pCO2 ABG pCO2 (Temp Corrct ABG pO2 ABG pO2 (Temp Correct ABG HCO3 ABG O2 Saturation ABG Base Excess Respiration Rate O2 Delivery Device Ventilator Type Vent Mode FiO2 Inspiratory Time PEEP Pressure Support Pressure Control EPAP IPAP BiPAP Sodium 142 Potassium 5.0 Chloride 119 H Carbon Dioxide 10 L* Anion Gap 13 H BUN 63 H Creatinine 1.72 H Est GFR ( Amer) 34.6 Est GFR (Non-Af Amer) 28.6 BUN/Creatinine Ratio 36.6 H Glucose 85 Lactic Acid Calcium 7.2 L Total Bilirubin AST ALT Alkaline Phosphatase C-Reactive Protein Total Protein Albumin Globulin Albumin/Globulin Ratio Lipase Urine Color Urine Appearance Urine pH Ur Specific [place] Urine Protein Urine Ketones Urine Blood Urine Nitrate Urine Bilirubin Urine Urobilinogen Ur Leukocyte Esterase Urine WBC (Auto) Urine RBC (Auto) Urine Bacteria Urine Glucose Blood Type Antibody Screen Nutrition: NPO for now Impression: 70 yo female with history of Melanoma, Crohns disease on chroic pred 5mg daily, arthritis, GERD, HTN, Atrial flutter, urinary retention, presented to [facility] ED for lethargy and weakness for a few days before sending to hospital. She was found to be in severe sepsis with significant hypotension requiring pressers, and lactic acidosis, she was also found to have choledocholithiasis, with cholelithiasis and dilated pancreatic duct, which is the likely source of infection. 1. Septic shock due to chledochlithiasis and ascending cholangitis 2. Metabolic acidosis 3. Tachycardia likely appropriate to her sepsis, b/g AFib/flutter 4. HERLINDA due to sepsis and dehydration 5. Crohn's disease stable s/p two bowel resection, on chronic steroid 6. Melanoma- patient denied the history 7. Urinary retention on Maurer 8. Neuropathy 9. GERD 10. HTN 11. non obstructing renal calculi and ureter calculi Plan: Neuro- came in with confusion, alert and oriented today -Delirium prec; avoid BDZ CVS- -Titrate Pressors to Maintain MAP about 65, baseline BP 90s at home -tachycardia likely appropriate to her sepsis,and also partially due to levophed , will monitor -appreciate cardiology input, will do echo today, no need additional tx for tachycardia now Resp-Under RA, no active issues ID- - E.coli bacteremia from blood cs - likely source is hepatobillary, cholangitis, choledocholithiasis likely - will continue cefepime and flagyl for now - ERCP needs to be done ASHLEY to relieve obstruction. GI- -appreciate gastro input, urgent ERCP needed, but she will only get it tomorrow due to concern of her coagulation profile from financial service rep - further cholecystectomy will be needed in the future - Crohn disease: stable disease, on home dose pred 5mg, increase to stress dose of hydrocort here, will convert once pressure improves - Nutrition: npo - GI prophylaxis : IV PPI daily Renal- -strict I/O, replete to keep K>4, Mg>2 -maurer as indicated for I/O monitoring purpose - repeated bmp still metabolic acidosis but improving, but lactic acid normalized, Heme - Xarelto reversal: Kcentra was given this morning to prepare for ERCP as a reversal agent for Xarelto -Hb drop by 2 likely due to dilutional effect after hydration Endo-Maintain BG<200, glucose monitoring Q4h during fasting. Musculsk- pressure ulcer prophylaxis. Bedrest. Wounds- bilateral LL extremities scaly and erythematous rashes. Nutrition- NPO DVT prophylaxis: will hold off for now for procedure tomorrow GI prophylaxis: iv pantoprazole Central Line:no Arterial Line:no Mauerr Cathetor: D2 for urinary retention Disposition: Patient requires Critical Care/ICU for severe sepsis requiring Levophed support Patient clinical status: stable Code Status: full code Total Critical Care time is 45 minutes, excluding procedures/teaching <Zehra Dumont - Last Filed: 04/22/19 16:25> Plan: This service has been performed by a resident under the direction of a teaching physician. I, Zehra Dumont, performed the service, or was physically present during the critical, or cross portions of the service, furnished by the resident. I participated in the management of the patient. 79 year old woman with h/o Crohn's disease who presents with septic shock due to cholangitis. Septic shock due to cholangitis Cholangitis due to choledocholithiasis E coli bacteremia Transaminitis Hyperbilirubinemia Metabolic acidosis HERLINDA Crohn's disease Atrial flutter Patient is feeling better this morning. She denies abdominal pain, chest pain, or shortness of breath. She received K centra this morning for INR 4. On exam, she has mild tenderness to palpation in the right lower quadrant. She is awake and alert, oriented to person, place, time. Continue norepinephrine to keep MAP 60-65. Patient reports that SBP usually runs low. L subclavian central line. ERCP on hold today due to tachycardia and coagulopathy. Plan for ERCP tomorrow. Cardiology to evaluate patient due to tachycardia in preparation for procedure tomorrow. Continue cefepime and flagyl for cholangitis and E coli bacteremia Continue stress dose steroids while still in septic shock. Plan to return to home dose prednisone when off pressors. Start clear liquids, NPO after midnight Maurer for accurate I&Os and urinary retention SCDs only for DVT prophylaxis Critical Care Time: 45 minutes, excluding procedures/teaching Zehra Dumont MD
[2019-04-22] MEDS ORDERED: Phenylephrine 10 MG/ML VIAL* 50 MG in NS 0.9% 250 ML* 245 ML IV SCH (16:00)
--- NOTE | 2019-04-22 16:01 | ECHO ---
*[facility]* [place] [address] Fax #: [phone] Transthoracic Echocardiogram Patient: Alicia Perry : 1940 Study Date: 04/22/2019 Age: 79 Gender: F HR: 122 bpm Height: 65 in /165.1 cm BSA: 1.39 m^2 Weight: 86.8 lb /39.5 kg BMI: 14.5 kg/m^2 *First Press Operator: * Cheryl Thomas *Referring Physician: * Feliz Fuller MD *Reading Physician: * Feliz Fuller MD Indications: Abnormal EKG. History: Atrial flutter. Risk factors: Former tobacco use. Hypertension. Conclusions Summary: - Left ventricle: Systolic function is normal. The estimated ejection fraction is 60-65%. Wall motion is normal; there are no regional wall motion abnormalities. - Right ventricle: The cavity size is severely dilated. Wall thickness is increased. Systolic function is mildly to moderately reduced. - Left atrium: The atrium is severely dilated. - Mitral valve: There is trace regurgitation. - Aortic valve: Transvalvular velocity is within the normal range. There is no evidence of stenosis. There is trace to mild regurgitation. - Tricuspid valve: There is severe regurgitation. - Pericardium, extracardiac: There is no significant pericardial effusion. - Pulmonary arteries: Systolic pressure cannot be accurately determined, but appears to be increased. - Compared to study of 12/2018 at our office shows no change. Study data: Transthoracic echocardiogram. Procedure: Transthoracic echocardiography was performed. Image quality was poor. The study was technically limited due to poor acoustic window availability, restricted patient mobility, and body habitus. Complete 2D, spectral Doppler, and color flow Doppler. Location: ICU Patient status: Inpatient. Patient room number: 8. Rhythm: Atrial flutter. Findings Left ventricle: The cavity size is normal. Wall thickness is normal. Systolic function is normal. The estimated ejection fraction is 60-65%. Wall motion is normal; there are no regional wall motion abnormalities. Left ventricular diastolic function parameters are indeterminate. Right ventricle: The cavity size is severely dilated. Wall thickness is increased. Systolic function is mildly to moderately reduced. Left atrium: The atrium is severely dilated. Right atrium: The atrium is severely dilated. Mitral valve: The valve is structurally normal. There is no evidence of stenosis. There is trace regurgitation. Aortic valve: The valve is structurally normal. The valve is trileaflet. Cusp separation is normal. Transvalvular velocity is within the normal range. There is no evidence of stenosis. There is trace to mild regurgitation. Tricuspid valve: The valve is structurally normal. There is no evidence of stenosis. There is severe regurgitation. Hepatic melony flow reversal is present Pulmonic valve: The valve is structurally normal. There is no evidence of stenosis. There is mild regurgitation. Aorta: The aortic root appears normal. The aortic arch appears normal. Pericardium: There is no significant pericardial effusion. Pulmonary arteries: Systolic pressure cannot be accurately determined, but appears to be increased. Systemic veins: Inferior vena cava: The vessel is normal in size. There is (>= 50%) respiratory change in the IVC dimension. Pulmonary veins: Not well visualized. Measurements Left ventricle Value Ref Aortic valve continued Value Ref ROLANDA, LAX 4.0 cm 3.8 - 5.2 Mean grad, S 4.0 mm Hg ----- ESD, LAX 2.9 cm 2.2 - 3.5 Peak grad, S 8.0 mm Hg ----- FS, LAX 29 % 27 - 45 INDRA, VTI 1.78 cm^2 ----- PW, ED, LAX (H) 1.1 cm 0.6 - 0.9 INDRA, Vmax 1.76 cm^2 ----- LVOT Value Ref Mitral valve Value Ref Diam, S 1.90 cm Peak E 0.78 m/sec ----- Area 2.8 cm^2 Decel time 124 ms ----- Peak car, S 0.86 m/sec Peak grad, D 2.4 mm Hg ----- Mean grad, S 2 mm Hg SV 40 ml Pulmonic valve Value Ref Peak v, S 0.66 m/sec ----- Ventricular septum Value Ref Peak grad, S 2.0 mm Hg ----- IVS, ED 0.9 cm 0.6 - 0.9 Tricuspid valve Value Ref Right ventricle Value Ref TR peak v 2.56 m/sec <=2 .8 ROLANDA, LAX 3.2 cm Peak RV-RA grad, S 26 mm Hg ----- ROLANDA minor ax, (H) 5.9 cm 1.9 - 3.5 Max TR car 2.66 m/sec ----- A4C mid Aortic root Value Ref Left atrium Value Ref Root diam 2.7 cm <3. 7 AP dim, ES (H) 4.40 cm 2.70 - 3.80 Ascending aorta Value Ref ML dim, A4C 4.6 cm AAo AP diam, S 2.9 cm ----- SI dim, A4C 8.1 cm Vol/bsa, ES, 1-p (H) 106 ml/m^2 11 - 40 Aortic arch Value Ref A4C Arch diam 2.8 cm ----- Right atrium Value Ref Decending aorta Value Ref SI dim, ES (H) 8.4 cm 3.4 - 5.3 Quan peak car 0.52 m/sec ----- ML dim, ES, A4C (H) 7.5 cm 2.6 - 4.4 SI dim, ES, A4C (H) 8.4 cm 3.4 - 5.3 Inferior vena cava Value Ref Diam 2.9 cm ----- Aortic valve Value Ref Peak v, S 1.38 m/sec VTI, S 22.3 cm Legend: (L) and (H) charity values outside specified reference range. Prepared and electronically signed by Feliz Fuller MD 04/22/2019 16:01
--- NOTE | 2019-04-22 16:29 | CONS ---
GASTROENTEROLOGY CONSULT: DATE OF CONSULT: 04/22/19 CONSULTING PHYSICIANS: Marty Corey, Dayami Watters* REASON FOR CONSULTATION: Cholangitis with WBD 56K and stone seen in the common duct on ultrasound and CT scanning. HISTORY: This 79-year-old debilitated woman with a remote history of Crohn disease, status post several surgeries, currently on mercaptopurine and prednisone 5 mg 3 days a week, also has a history of atrial arrhythmias and takes Xarelto. She was noted to have tricuspid insufficiency. She has some chronic wounds secondary to being underweight and inactive, and is followed in the pain clinic. She states that in general her appetite and digestion have been at baseline and comfortable recently and then 2 days ago developed a right-sided abdominal pain. She thought a feeling of tremorousness might have been from her long- standing neuropathy. She began having more pain today, decided to come to the emergency room in the evening. She had already taken all of her meds including the Xarelto. She was drowsy and had a CTA of the head without contrast, it was unremarkable. Her labs showed remarkable leukocytosis at 56,000. She had renal injury and elevated LFTs with bilirubin 5, ALT 174, BUN 71, creatinine 2.32. She is tachycardic and initial blood pressure was 84/65. She was started on antibiotics, had blood cultures taken. She was admitted to the ICU and Levophed was started. It was unclear what her target blood pressure should be. She did have a good urine output. She began to appear more awake and alert. Her ALT fell slightly to 148, alk phos to 229, and bilirubin to 4.3. Creatinine fell sequentially to 1.83. She is much more awake and alert. PAST MEDICAL HISTORY: 1. Crohn disease - status post surgery in 1995 with resection of terminal ileum , and then at some point, there was a second resection of ileum. Colonoscopy in March 2012 to the ileocolic anastomosis at 60 cm from the anal verge showed no visual abnormality. The neoterminal ileum was not apparently seen. 2. Chronic dysphagia - upper endoscopy in January 2018 to evaluate dysphagia for pills, especially multivitamins. Esophagus seemed dilated and tortuous, but there was no overt mucosal pathology. 3. Tricuspid insufficiency - followed by Dr Watters. 4. Atrial arrhythmias - on Xarelto with no history of thromboembolic phenomena recorded. 5. Chronic anticoagulation. 6. History of melanoma. 7. History of neuropathy - complex nutritional needs long-term. 8. History of decubitus ulcers. 9. Chronic urinary retention - chronic indwelling [place]. OUTPATIENT MEDICATIONS: Include: 1. Zantac frequency unknown. 2. Lomotil 1 to 4/ day as needed. 3. B12 - 1 mg per day. 4. Mercaptopurine 50mg 5. Prednisone 5 mg Sunday, Sunday, Sunday. 6. Metoprolol-XL 25. 7. Aldactone 12.5 mg. 8. Cozaar 25. 9. Xarelto 15. ALLERGIES: Listed to APIXABAN, PENICILLIN, SULFA, BACTRIM. FAMILY HISTORY: Parents at an older age of unspecified natural causes. SOCIAL HISTORY: She is , currently living alone. Four children from her first marriage live out of town. Her son, Jeffry, who is in [place], within the past year had a liver and kidney transplant in [place]. Her son , Andrew, is an orthopedist in [facility]. Her daughter, Iveth, a neurosurgeon and lives in [place]. Her youngest son, Win, lives in [place]. 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 She was known to have gallstones based on 2001 ultrasound and her family physician had counseled her, the risk was low. There is no history of DC, TIA, blood clots, hemoptysis , TB, renal stones, or rectal bleeding. No history of seizures or syncope. She does not sense her palpitations. PHYSICAL EXAMINATION: She is a cachectic woman with chronic changes to the skin that are scaly and erythematous. HEENT exam is otherwise unremarkable. Sclerae are muddy, but not overtly jaundiced. Blood pressure is 101/70, pulse 118. Dentition is quite poor. She has no adenopathy. Breath sounds are reduced , but symmetric. Heart sounds are distant, thready, rapid. Her abdomen is rounded with normal bowel sounds. She is tender on the right side, but without involuntary guarding or rigidity. Rectal deferred. Extremities show reduced muscle mass. She moves all 4 extremities. She is alert and oriented. DIAGNOSTIC STUDIES/LAB DATA: White count 56.7 on admission, hemoglobin 13.2, MCV 98, platelets 229. INR 3.71. Carbon dioxide 12, BUN 71, creatinine 2.32. Bilirubin 5.00. Lipase 76. Radiology review - calcified gallstones in the common duct. IMPRESSION: This 79-year-old woman presents with abdominal pain and signs of sepsis. Gallstones are seen in the gallbladder and in the common duct on US and CT. Her chemistries confirmed the hepatobiliary area is the source of the problem. She is unfortunately septic and anticoagulated. She has never had a thromboembolic event, but even if she had, the anticoagulation will have to be held and then reversed in order to undergo ERCP. Should the procedure become urgent to be done in the face of anticoagulation, a stent only could be placed. Otherwise, reversing anticoagulation temporarily would allow for sphincterotomy and hopefully withdrawal of the stones, potentially avoiding a temporary stent. Her course will be followed closely. The current plan is to give her Kcentra, the antibiotic chosen for her allergy history, cefepime, and then follow. [id number]/[facility] #: [id number] MAIN
[2019-04-22] MEDS: Lactated Ringers 1000 ML Bag* 1,000 ML IV SCH (16:37)
[2019-04-22] MEDS ORDERED: Metoprolol Tartrate IV* 1 MG/ML 5 ML VIAL IV PRN (16:51)
--- NOTE | 2019-04-22 17:52 | CONS ---
CC: Dr. Whaley, registered medical assistant; Dr. Dayami Watters; Dr. Flores CARDIOLOGY CONSULTATION: DATE OF CONSULT: 04/22/19 INDICATION FOR CONSULTATION: Atrial fibrillation, tachycardia, sepsis. HISTORY OF PRESENT ILLNESS: The patient is a 79-year-old female who came to the emergency room formerly [facility] of fatigue and weakness and also abdominal pain. She was subsequently diagnosed with cholecystiti s. She has a common bile duct distention and mass. The patient was admitted to the hospital, placed on antibiotics and kept n.p.o. She has a long history of atrial fibrillation. She is in chronic at [facility] fibrillation with rate control agents and anticoagulation. Here in the hospital, the patient tonio jin is septic. She has a white count of 57,000. She is also on Levophed for her hypotension. Curre ntly, her heart rate is 120 to 140 beats per minute and her blood pressure is 90/61. In speaking with the patient, she has no cardiac complaints. She does complain of belly pain. She i s not short of breath. She denies any feelings of palpitations. PAST MEDICAL HISTORY: Significant for chronic atrial fibrillation, severe tricuspid regurgitation wi th right ventricular dilatation, thoracic aortic aneurysm, Crohn's disease, hypertension. PAST SURGICAL HISTORY: Bowel resection in 1994, knee surgery with knee replacement surgery, breast b iopsy, appendectomy, toe amputation. OUTPATIENT MEDICATIONS: 1. Xarelto 15 mg a day. 2. Metoprolol succinate 25 mg once a day. 3. Spironolactone 12.5 mg a day. 4. Prednisone as directed. 5. Gabapentin 300 mg 3 times a day. 6. Lomotil tablets 1 q.h.s. 7. Evista 60 mg daily. 8. Vitamin C. 9. Vitamin B12. 10. Hydrocodone p.r.n. 11. Losartan 25 mg a day. 12. Ranitidine 75 mg a day. ALLERGIES: To PENICILLIN, SULFA MEDICATIONS, DEMEROL, ELIQUIS. FAMILY HISTORY: Father of prostate disease. Mother of leukemia. SOCIAL HISTORY: She is . She lives alone. 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 She is a form er smoker, quit in 1979. Rare alcohol intake. One cup of coffee a day. She tries to walk on a regu lar basis. REVIEW OF SYSTEMS: Positive for abdominal pain. Positive for weight loss. Positive for fevers. [facility] er 12-point review was unremarkable. PHYSICAL EXAM: Height is 5 feet 5 inches, weight is 87 pounds, temperature 98.4, heart rate 131, blo od pressure 90/61, respiratory rate is 22, oxygen saturation 99% on 2 L. Sclerae anicteric. Orophar ynx is pink without erythema. Carotids are 2+ without bruits. JVD is normal. Thyroid is normal. C ardiac Exam: S1, S2. Tachycardic, with a 1/6 systolic ejection murmur heard best at the right lower sternal border. PMI is difficult to assess. Lungs are clear to auscultation bilaterally. Abdomen i s soft, mildly tender, with decreased bowel sounds. Extremities show no edema. She has 2+ pulses thr oughout. The patient is awake, alert, and oriented. She moves all 4 extremities equally. DIAGNOSTIC STUDIES/LAB DATA: Again, her white count is 57,000, hemoglobin 13, hematocrit 42, platele t count 224. Chemistries within normal limits. BUN 67, creatinine 1.8, lactic acid is elevated at 3 .1. AST and ALT are elevated. C- reactive protein is 101. Her echocardiogram today shows normal left ventricular size and systolic function. Her right ventricl e is severely dilated with moderately reduced right ventricular systolic function. She has severe tr icuspid regurgitation. She has biatrial enlargement. Compared to an echocardiogram in December of 2018, there is not a significant change. IMPRESSION AND PLAN: This is a 79-year-old female who came to the hospital because of abdominal pain . She was found to have cholecystitis and has sepsis. The patient is currently on Levophed for main tenance of blood pressure. The patient is in chronic atrial fibrillation. Her heart rate today is 130. I think the patient's heart rate is appropriate and reactive to the situation. I do not think any ra te control agents are necessary. The patient will be continued to give supportive measures for her c urrent infection. The patient can be seen in followup by Dr. Watters as an outpatient. [id number]/[facility] #: [id number]
[2019-04-22] MEDS ORDERED: Metoprolol Tartrate IV* 1 MG/ML 5 ML VIAL IV ONE (17:56)
[2019-04-22] MEDS ORDERED: Phytonadione SUBCUT/IM Adult* 10 MG/ML AMP (IM or SQ not preferred route) SUBCUT ONE (22:25)
[2019-04-22] MEDS ORDERED: Morphine INJ* 2 MG/ML 1 ML SYRINGE (TWO MG - NEW SYRINGE VERSION) IV ONE (23:44)
[2019-04-22] MEDS ORDERED: Morphine INJ* 2 MG/ML 1 ML SYRINGE (TWO MG - NEW SYRINGE VERSION) ONE (23:46)
[2019-04-23] MEDS: Hydrocortisone INJ* 100 MG/2 ML VIAL (in pyxis) IV SCH ×3 (00:35→17:00)
[2019-04-23] MEDS: metroNIDAZOLE IV 500 MG/100ML* 500 MG/100 ML BAG IVPB SCH ×3 (00:35→17:00)
[2019-04-23] MEDS: Cefepime(*) 1 GM in NS 0.9% 50 ML* 50 ML IVPB SCH ×2 (00:35→12:04)
[2019-04-23] MEDS ORDERED: Morphine INJ* 2 MG/ML 1 ML SYRINGE (TWO MG - NEW SYRINGE VERSION) IV ONE (04:40)
[2019-04-23] MEDS: Lactated Ringers 1000 ML Bag* 1,000 ML IV SCH (05:36)
[2019-04-23 05:37] LABS: Hematocrit 32 % (35-47); Hemoglobin 10.5 g/dL (12.0-16.0); Mean Corpuscular HGB Conc 33 g/dL (31-36); Mean Corpuscular Hemoglobin 31 pg (27-31); Mean Corpuscular Volume 94 fL (80-97); Mean Platelet Volume 9.3 fL (7.4-10.4); Platelet Count 159 10^3/uL (150-450); Red Blood Count 3.41 10^6 /uL (3.70-4.87); Red Cell Distribution Width 16 % (10-15); White Blood Count 49.1 10^3/uL (3.5-10.8)
[2019-04-23 05:48] LABS: Albumin 2.9 g/dL (3.2-5.2); Albumin/Globulin Ratio 1.3 (1-3); Calcium 7.8 mg/dL (8.6-10.3); EGFR African American 37.6 (>60); EGFR Non-African American 31.1 (>60); Globulin 2.2 g/dL (2-4); Potassium 4.6 mmol/L (3.5-5.0); Total Bilirubin 2.5 mg/dL (0.2-1.0); Total Protein 5.1 g/dL (6.4-8.9)
[2019-04-23 05:52] LABS: Activated Partial Thrombo Time 50.7 seconds (26.0-38.0); INR 3.04 (0.82-1.09)
[2019-04-23 06:13] LABS: Burr Cells 1+
[2019-04-23 06:15] LABS: ABS Eosinophils 0.3 10^3/ul (0-0.6); ABS Lymphocytes 0.6 10^3/ul (1.0-4.8); ABS Monocytes 0.8 10^3/ul (0-0.8); ABS Neutrophils 47.3 10^3/ul (1.5-7.7); Eosinophil % 0.7 %; Lymphocyte % 1.1 %
[2019-04-23] MEDS ORDERED: Phytonadione Oral Solution* 5 MG/25 ML UDC PO ONE (06:35)
[2019-04-23] MEDS ORDERED: PHYTONADIONE 5 MG PO ONE (06:35)
[2019-04-23] MEDS: Metoprolol Tartrate IV* 1 MG/ML 5 ML VIAL IV PRN ×2 (08:18→23:37)
[2019-04-23] MEDS: Pantoprazole IV* 40 MG IV SCH (08:18)
[2019-04-23] MEDS ORDERED: Phytonadione IV (Adult)* 10 MG/ML 1 ML AMP IV ONE (09:44)
[2019-04-23] MEDS ORDERED: PHYTONADIONE IV ONE (10:00)
[2019-04-23] MEDS ORDERED: NS 0.9% IV ONE (10:00)
[2019-04-23 10:17] LABS: Platelet Count 159 10^3/ul (150-450)
[2019-04-23 10:26] LABS: Activated Partial Thrombo Time 48.5 seconds (26.0-38.0); INR 2.06 (0.82-1.09)
[2019-04-23 10:47] LABS: Fibrinogen 481.8 mg/dL (110.8-404.3)
[2019-04-23 11:01] LABS: Schistocytes ABSENT
--- NOTE | 2019-04-23 11:12 | CONSULT ---
Consultation - Reason for Consultation Reason for Consultation: coagulopathy Ordering Provider: Zehra Dumont Chief Complaint: abdominal pain History of Present Illness: 79 yo chronically ill female with PMH of crohn's disease on chronic immunosuppression, cachexia, and afib on xeralto presenting with lethargy and abdominal pain and found to have sepsis from likely gall stone cholangitis. We are being consulted specifically on her elevated coags and plan for moving forward should she need a procedure. She is a bit vague on history but it appears that she took her last dose of xeralto on 04/20 in the evening. She presented with the above complaints and is currently on broad spectrum antibiotics and low dose pressor support. On presentation her INR was 3.71, her WBC was 57 with a left shift, transaminitis, and lactic acidosis. She was also in acute renal failure with an INR of 1.83. She has been found subsequently to have klebsiella and e coli bacteremia, and a gall stone in her CBD on imaging. She was given 1608 U of kcentra yesterday AM to reverse her xeralto in hopes of ERCP. Her INR did fall to 2.02, however repeat this am was 3.07 and so she was given 10 mg sc vitamin K and 10 mg po vitamin K. Her PTT was also elevated this am at 50.7. Currently she is more mentally awake, making urine, on only low dose pressors. She reports that she is feeling better than presentation. She reports no BM in 4-5 days. Allergies/Medications Medication: Hydrocortisone Sodium Succinate (Solu-Cortef*) 100 mg IV Q8H [facility] Last Admin: 04/23/19 08:18 Dose: 100 mg Metronidazole/Sodium Chloride (Flagyl 500 Mg Ivpb*) 500 mg in 100 mls @ 100 mls /hr IVPB Q8H [facility] Last Admin: 04/23/19 08:18 Dose: 100 mls/hr Cefepime HCl 1 gm/ Sodium (Chloride) 50 mls @ 100 mls/hr IVPB Q12H [facility] Last Admin: 04/23/19 00:35 Dose: 100 mls/hr Phenylephrine HCl 50 mg/ (Sodium Chloride) 250 mls @ 15 mls/hr IV .PER PROTOCOL [facility]; Protocol Last Admin: 04/22/19 16:19 Dose: 15 mls/hr Lactated Ringer's (Lactated Ringers 1000 Ml Bag*) 1,000 mls @ 75 mls/hr IV PER RATE [facility] Last Admin: 04/23/19 05:36 Dose: 75 mls/hr Metoprolol Tartrate (Lopressor Iv*) 5 mg IV Q6H PRN PRN Reason: HEART RATE/PULSE GREATER THAN: Last Admin: 04/23/19 08:18 Dose: 5 mg Ondansetron HCl (Zofran Inj*) 4 mg IV Q6H PRN PRN Reason: NAUSEA Pantoprazole Sodium (Protonix Iv*) 40 mg IV DAILY [facility] Last Admin: 04/23/19 08:18 Dose: 40 mg Allergies/Adverse Reactions: Allergies Allergy/AdvReac Type Severity Reaction Status Date / Time apixaban [From Eliquis] Allergy Dizziness Verified 12/29/18 12:41 clindamycin Allergy Unknown Verified 12/29/18 12:41 Reaction Details meperidine [From Demerol] Allergy Vomiting Verified 12/29/18 12:41 Penicillins Allergy Rash Verified 12/29/18 12:41 Sulfa (Sulfonamide Allergy Anaphylatic Verified 12/29/18 12:41 Antibiotics) Shock sulfamethoxazole Allergy Unknown Verified 12/29/18 12:41 [From Bactrim] Reaction Details trimethoprim [From Bactrim] Allergy Unknown Verified 12/29/18 12:41 Reaction Details ciprofloxacin [From Cipro] AdvReac Vomiting Verified 04/22/19 15:42 History - Past Medical History Other History: afib on xeralto. crohn's disease. prior melanoma. arthritis. GERD. neuropathy. HRN. chronic maurer for retention. prior bowel resection x 2 - Family History Other Family History: noncontributory - Social History Other Social History: lives alone, remote tobacco use Review of Systems - Review of Systems Constitutional Symptoms: Positive: Weakness Dermatology: Positive: Skin Lesions HEENT: Positive: Normal Eyes: Positive: Normal Thyroid: Positive: Normal Pulmonary: Positive: Normal Cardiology: Positive: Normal Gastroenterology: Positive: Abdominal Pain, Constipation Genital - Urinary: Positive: Normal Musculoskeletal: Positive: Joint Pain Endocrinology: Positive: Normal Neurology: Positive: Normal Psychiatry: Positive: Normal Physical Exam - Physical Exam Physical Examination: Vital Signs Temp Pulse Resp BP Pulse Ox 97.5 F 91 14 101/76 100 04/23/19 10:16 04/23/19 10:00 04/23/19 10:16 04/23/19 10:16 04/23/19 10:00 cachectic female lying flat in nad perr eomi op dry, poor dentition CTA bl irr irr distended ttp over RUQ, no rebound no le edema scattered skin lesions stigmata of chronic stasis changes Results - Lab Results Lab Results: 04/21/19 04/21/19 04/21/19 20:05 20:05 20:49 WBC 56.7 H RBC 4.29 Hgb 13.2 Hct 42 MCV 98 H MCH 31 MCHC 31 RDW 16 H Plt Count 229 MPV 8.4 Neut % (Auto) Not Reportable Lymph % (Auto) Not Reportable [place] % (Auto) Not Reportable Eos % (Auto) Not Reportable Baso % (Auto) Not Reportable Absolute Neuts (auto) 55.2 H Absolute Lymphs (auto) 0.4 L Absolute Monos (auto) 0.9 H Absolute Eos (auto) 0.0 Absolute Basos (auto) 0.2 Absolute Nucleated RBC 0.0 Immature Gran % 24.0 H Neutrophils % 66.0 Band Neutrophils % 24.0 H Lymphocytes % 6.0 Monocytes % 4.0 Metamyelocytes % Nucleated RBC % 0.0 Normal RBC Morphology Normal Anisocytosis Microcytosis [place] Cells Elliptocytes Schistocytes Hem Pathologist Commnt INR (Anticoag Therapy) APTT Fibrinogen D-Dimer, Quantitative Patient Temperature ABG pH ABG pH (Temp Correct) ABG pCO2 ABG pCO2 (Temp Corrct ABG pO2 ABG pO2 (Temp Correct ABG HCO3 ABG O2 Saturation ABG Base Excess Respiration Rate O2 Delivery Device Ventilator Type Vent Mode FiO2 Inspiratory Time PEEP Pressure Support Pressure Control EPAP IPAP BiPAP Sodium 140 Potassium 5.1 H Chloride 111 Carbon Dioxide 12 L* Anion Gap 17 H BUN 71 H Creatinine 2.32 H Est GFR ( Amer) 24.5 Est GFR (Non-Af Amer) 20.3 BUN/Creatinine Ratio 30.6 H Glucose 104 H POC Glucose (mg/dL) Lactic Acid Calcium 9.1 Total Bilirubin 5.00 H AST 328 H ALT 174 H Alkaline Phosphatase 374 H C-Reactive Protein 101.57 H Total Protein 6.5 Albumin 4.0 Globulin 2.5 Albumin/Globulin Ratio 1.6 Lipase 76 Urine Color Urine Appearance Urine pH Ur Specific [place] Urine Protein Urine Ketones Urine Blood Urine Nitrate Urine Bilirubin Urine Urobilinogen Ur Leukocyte Esterase Urine WBC (Auto) Urine RBC (Auto) Urine Bacteria Urine Glucose Blood Type A Positive Antibody Screen Negative 04/21/19 04/21/19 04/22/19 20:49 22:43 00:00 WBC RBC Hgb Hct MCV MCH MCHC RDW Plt Count MPV Neut % (Auto) Lymph % (Auto) [place] % (Auto) Eos % (Auto) Baso % (Auto) Absolute Neuts (auto) Absolute Lymphs (auto) Absolute Monos (auto) Absolute Eos (auto) Absolute Basos (auto) Absolute Nucleated RBC Immature Gran % Neutrophils % Band Neutrophils % Lymphocytes % Monocytes % Metamyelocytes % Nucleated RBC % Normal RBC Morphology Anisocytosis Microcytosis [place] Cells Elliptocytes Schistocytes Hem Pathologist Commnt INR (Anticoag Therapy) 3.71 H APTT Fibrinogen D-Dimer, Quantitative Patient Temperature ABG pH ABG pH (Temp Correct) ABG pCO2 ABG pCO2 (Temp Corrct ABG pO2 ABG pO2 (Temp Correct ABG HCO3 ABG O2 Saturation ABG Base Excess Respiration Rate O2 Delivery Device Ventilator Type Vent Mode FiO2 Inspiratory Time PEEP Pressure Support Pressure Control EPAP IPAP BiPAP Sodium Potassium Chloride Carbon Dioxide Anion Gap BUN Creatinine Est GFR ( Amer) Est GFR (Non-Af Amer) BUN/Creatinine Ratio Glucose POC Glucose (mg/dL) Lactic Acid 6.8 H* Calcium Total Bilirubin AST ALT Alkaline Phosphatase C-Reactive Protein Total Protein Albumin Globulin Albumin/Globulin Ratio Lipase Urine Color [place] Urine Appearance Turbid Urine pH 6.0 Ur Specific [place] 1.011 Urine Protein 1+(30 mg/dl) A Urine Ketones Negative Urine Blood 2+ A Urine Nitrate Negative Urine Bilirubin Negative Urine Urobilinogen Negative Ur Leukocyte Esterase 3+ A Urine WBC (Auto) 3+(>20/hpf) A Urine RBC (Auto) 3+(>10/hpf) A Urine Bacteria 1+ A Urine Glucose Negative Blood Type Antibody Screen 04/22/19 04/22/19 04/22/19 00:30 00:44 00:44 WBC RBC Hgb Hct MCV MCH MCHC RDW Plt Count MPV Neut % (Auto) Lymph % (Auto) [place] % (Auto) Eos % (Auto) Baso % (Auto) Absolute Neuts (auto) Absolute Lymphs (auto) Absolute Monos (auto) Absolute Eos (auto) Absolute Basos (auto) Absolute Nucleated RBC Immature Gran % Neutrophils % Band Neutrophils % Lymphocytes % Monocytes % Metamyelocytes % Nucleated RBC % Normal RBC Morphology Anisocytosis Microcytosis [place] Cells Elliptocytes Schistocytes Hem Pathologist Commnt INR (Anticoag Therapy) APTT Fibrinogen D-Dimer, Quantitative Patient Temperature Not Reportable ABG pH 7.29 L ABG pH (Temp Correct) Not Reportable ABG pCO2 23 L ABG pCO2 (Temp Corrct Not Reportable ABG pO2 142 H ABG pO2 (Temp Correct Not Reportable ABG HCO3 14.4 L ABG O2 Saturation 99.3 H ABG Base Excess -13.5 L Respiration Rate Not Reportable O2 Delivery Device N/c Ventilator Type Not Reportable Vent Mode Not Reportable FiO2 Not Reportable Inspiratory Time Not Reportable PEEP Not Reportable Pressure Support Not Reportable Pressure Control Not Reportable EPAP Not Reportable IPAP Not Reportable BiPAP Not Reportable Sodium 141 Potassium 4.7 Chloride 119 H Carbon Dioxide 11 L* Anion Gap 11 BUN 67 H Creatinine 1.86 H Est GFR ( Amer) 31.6 Est GFR (Non-Af Amer) 26.1 BUN/Creatinine Ratio 36.0 H Glucose 92 POC Glucose (mg/dL) Lactic Acid 2.5 H* Calcium 7.3 L Total Bilirubin 4.00 H AST 243 H ALT 140 H Alkaline Phosphatase 239 H C-Reactive Protein Total Protein 4.9 L Albumin 2.8 L Globulin 2.1 Albumin/Globulin Ratio 1.3 Lipase Urine Color Urine Appearance Urine pH Ur Specific [place] Urine Protein Urine Ketones Urine Blood Urine Nitrate Urine Bilirubin Urine Urobilinogen Ur Leukocyte Esterase Urine WBC (Auto) Urine RBC (Auto) Urine Bacteria Urine Glucose Blood Type Antibody Screen 04/22/19 04/22/19 04/22/19 04:45 04:45 04:45 WBC 75.9 H RBC 3.56 L Hgb 11.1 L Hct 35 MCV 97 MCH 31 MCHC 32 RDW 16 H Plt Count 207 MPV 8.9 Neut % (Auto) 97.7 Lymph % (Auto) 0.7 [place] % (Auto) 1.3 Eos % (Auto) 0.0 Baso % (Auto) 0.3 Absolute Neuts (auto) 74.1 H Absolute Lymphs (auto) 0.5 L Absolute Monos (auto) 1.0 H Absolute Eos (auto) 0.0 Absolute Basos (auto) 0.3 H Absolute Nucleated RBC 0.0 Immature Gran % 12.0 H Neutrophils % 85.0 Band Neutrophils % 11.0 H Lymphocytes % 1.0 Monocytes % 2.0 Metamyelocytes % 1.0 Nucleated RBC % 0.0 Normal RBC Morphology Not Reportable Anisocytosis 2+ Microcytosis 1+ [place] Cells Elliptocytes Schistocytes Hem Pathologist Commnt INR (Anticoag Therapy) APTT Fibrinogen D-Dimer, Quantitative Patient Temperature ABG pH ABG pH (Temp Correct) ABG pCO2 ABG pCO2 (Temp Corrct ABG pO2 ABG pO2 (Temp Correct ABG HCO3 ABG O2 Saturation ABG Base Excess Respiration Rate O2 Delivery Device Ventilator Type Vent Mode FiO2 Inspiratory Time PEEP Pressure Support Pressure Control EPAP IPAP BiPAP Sodium 142 Potassium 5.2 H Chloride 119 H Carbon Dioxide 10 L* Anion Gap 13 H BUN 63 H Creatinine 1.83 H Est GFR ( Amer) 32.2 Est GFR (Non-Af Amer) 26.6 BUN/Creatinine Ratio 34.4 H Glucose 85 POC Glucose (mg/dL) Lactic Acid 3.1 H* Calcium 7.0 L Total Bilirubin 4.30 H AST 255 H ALT 148 H Alkaline Phosphatase 229 H C-Reactive Protein Total Protein 5.3 L Albumin 3.0 L Globulin 2.3 Albumin/Globulin Ratio 1.3 Lipase Urine Color Urine Appearance Urine pH Ur Specific [place] Urine Protein Urine Ketones Urine Blood Urine Nitrate Urine Bilirubin Urine Urobilinogen Ur Leukocyte Esterase Urine WBC (Auto) Urine RBC (Auto) Urine Bacteria Urine Glucose Blood Type Antibody Screen 04/22/19 04/22/19 04/22/19 05:44 10:48 10:48 WBC RBC Hgb Hct MCV MCH MCHC RDW Plt Count MPV Neut % (Auto) Lymph % (Auto) [place] % (Auto) Eos % (Auto) Baso % (Auto) Absolute Neuts (auto) Absolute Lymphs (auto) Absolute Monos (auto) Absolute Eos (auto) Absolute Basos (auto) Absolute Nucleated RBC Immature Gran % Neutrophils % Band Neutrophils % Lymphocytes % Monocytes % Metamyelocytes % Nucleated RBC % Normal RBC Morphology Anisocytosis Microcytosis [place] Cells Elliptocytes Schistocytes Hem Pathologist Commnt INR (Anticoag Therapy) 4.42 H 2.02 H APTT Fibrinogen D-Dimer, Quantitative Patient Temperature ABG pH ABG pH (Temp Correct) ABG pCO2 ABG pCO2 (Temp Corrct ABG pO2 ABG pO2 (Temp Correct ABG HCO3 ABG O2 Saturation ABG Base Excess Respiration Rate O2 Delivery Device Ventilator Type Vent Mode FiO2 Inspiratory Time PEEP Pressure Support Pressure Control EPAP IPAP BiPAP Sodium Potassium Chloride Carbon Dioxide Anion Gap BUN Creatinine Est GFR ( Amer) Est GFR (Non-Af Amer) BUN/Creatinine Ratio Glucose POC Glucose (mg/dL) Lactic Acid 1.7 Calcium Total Bilirubin AST ALT Alkaline Phosphatase C-Reactive Protein Total Protein Albumin Globulin Albumin/Globulin Ratio Lipase Urine Color Urine Appearance Urine pH Ur Specific [place] Urine Protein Urine Ketones Urine Blood Urine Nitrate Urine Bilirubin Urine Urobilinogen Ur Leukocyte Esterase Urine WBC (Auto) Urine RBC (Auto) Urine Bacteria Urine Glucose Blood Type Antibody Screen 04/22/19 04/23/19 04/23/19 12:07 00:21 05:00 WBC RBC Hgb Hct MCV MCH MCHC RDW Plt Count MPV Neut % (Auto) Lymph % (Auto) [place] % (Auto) Eos % (Auto) Baso % (Auto) Absolute Neuts (auto) Absolute Lymphs (auto) Absolute Monos (auto) Absolute Eos (auto) Absolute Basos (auto) Absolute Nucleated RBC Immature Gran % Neutrophils % Band Neutrophils % Lymphocytes % Monocytes % Metamyelocytes % Nucleated RBC % Normal RBC Morphology Anisocytosis Microcytosis [place] Cells Elliptocytes Schistocytes Hem Pathologist Commnt INR (Anticoag Therapy) 3.04 H APTT 50.7 H Fibrinogen D-Dimer, Quantitative Patient Temperature ABG pH ABG pH (Temp Correct) ABG pCO2 ABG pCO2 (Temp Corrct ABG pO2 ABG pO2 (Temp Correct ABG HCO3 ABG O2 Saturation ABG Base Excess Respiration Rate O2 Delivery Device Ventilator Type Vent Mode FiO2 Inspiratory Time PEEP Pressure Support Pressure Control EPAP IPAP BiPAP Sodium 142 Potassium 5.0 Chloride 119 H Carbon Dioxide 10 L* Anion Gap 13 H BUN 63 H Creatinine 1.72 H Est GFR ( Amer) 34.6 Est GFR (Non-Af Amer) 28.6 BUN/Creatinine Ratio 36.6 H Glucose 85 POC Glucose (mg/dL) 124 H Lactic Acid Calcium 7.2 L Total Bilirubin AST ALT Alkaline Phosphatase C-Reactive Protein Total Protein Albumin Globulin Albumin/Globulin Ratio Lipase Urine Color Urine Appearance Urine pH Ur Specific [place] Urine Protein Urine Ketones Urine Blood Urine Nitrate Urine Bilirubin Urine Urobilinogen Ur Leukocyte Esterase Urine WBC (Auto) Urine RBC (Auto) Urine Bacteria Urine Glucose Blood Type Antibody Screen 04/23/19 04/23/19 04/23/19 05:00 05:00 09:54 WBC 49.1 H RBC 3.41 L Hgb 10.5 L Hct 32 L MCV 94 MCH 31 MCHC 33 RDW 16 H Plt Count 159 159 MPV 9.3 Neut % (Auto) 96.4 Lymph % (Auto) 1.1 [place] % (Auto) 1.7 Eos % (Auto) 0.7 Baso % (Auto) 0.1 Absolute Neuts (auto) 47.3 H Absolute Lymphs (auto) 0.6 L Absolute Monos (auto) 0.8 Absolute Eos (auto) 0.3 Absolute Basos (auto) 0.0 Absolute Nucleated RBC 0.0 Immature Gran % 9.0 Neutrophils % 90.0 Band Neutrophils % 9.0 H Lymphocytes % Monocytes % 1.0 Metamyelocytes % Nucleated RBC % 0.0 Normal RBC Morphology Not Reportable Anisocytosis Microcytosis [place] Cells 1+ Elliptocytes 1+ Schistocytes Absent Hem Pathologist Commnt INR (Anticoag Therapy) 2.06 H APTT 48.5 H Fibrinogen 481.8 H D-Dimer, Quantitative > 1050 H Patient Temperature ABG pH ABG pH (Temp Correct) ABG pCO2 ABG pCO2 (Temp Corrct ABG pO2 ABG pO2 (Temp Correct ABG HCO3 ABG O2 Saturation ABG Base Excess Respiration Rate O2 Delivery Device Ventilator Type Vent Mode FiO2 Inspiratory Time PEEP Pressure Support Pressure Control EPAP IPAP BiPAP Sodium 141 Potassium 4.6 Chloride 118 H Carbon Dioxide 11 L* Anion Gap 12 H BUN 64 H Creatinine 1.60 H Est GFR ( Amer) 37.6 Est GFR (Non-Af Amer) 31.1 BUN/Creatinine Ratio 40.0 H Glucose 114 H POC Glucose (mg/dL) Lactic Acid Calcium 7.8 L Total Bilirubin 2.50 H D AST 141 H ALT 107 H Alkaline Phosphatase 171 H C-Reactive Protein Total Protein 5.1 L Albumin 2.9 L Globulin 2.2 Albumin/Globulin Ratio 1.3 Lipase Urine Color Urine Appearance Urine pH Ur Specific [place] Urine Protein Urine Ketones Urine Blood Urine Nitrate Urine Bilirubin Urine Urobilinogen Ur Leukocyte Esterase Urine WBC (Auto) Urine RBC (Auto) Urine Bacteria Urine Glucose Blood Type Antibody Screen Assessment and Plan Impression: 79 yo F w afib on xeralto, crohn's disease and cachexia, presenting with gallstone cholangitis driven sepsis and acute renal failure with a persistently elevated INR despite kcentra and vitamin K. She has had appropriate dosing of kcentra and there is no data for redosing at this point, with increased risk of clotting. I am concerned that, with her underlying GI dysfunction she may not respond as well to oral vitamin K, and with cachexia may have unpredictable SC absorption and so have recommended an IV dose of 1 mg. I will also check a DIC screen. Without active bleeding I do not see the utility to FFP at this time. please continue to follow her PTT and INR but please check peripheral stick for these and not off central line. We will continue to follow with you
--- NOTE | 2019-04-23 12:37 | PN ---
<Tegan Whaley - Last Filed: 04/23/19 12:30> Date of Service: 04/23/19 Critical Care Services: Overnight events, Patient felt improved, no fever or chills, mild RLQ abdominal pain, tolerable. She is oriented to time place person. Changed from Levophed to phenylephrine yesterday due to tachycardia, currently on 10mcg/min, HR ranging 110-150, better after iv metoprolol. No dizziness, lightheadedness. Tele: Afib with heart rate 110-140, SBP around 100L On 2L InO2 for comfort Vital Signs: Temp Pulse Resp BP SpO2 FiO2 97.3 F 107 21 102/73 93 04/23/19 11:00 04/23/19 12:00 04/23/19 12:00 04/23/19 12:00 04/23/19 12:00 Physical Exam: General: cachetic looking, skinny, NAD HEENT: Normocephalic, atraumatic, non-icteric sclera, mucosa moist. Neck: soft, supple, no JVD CV Fast rate and rhythm. no murmurs or rubs Pulm/Chest: clear on auscultation Abdomen/GI: mid tenderness in RLQ, mildly distended, BS not active MSK/Skin: warm, dry, intact, +2 pulses+, no edema or cyanosis Extremity: scaly erythematous bilateral LL- chronic Neuro: alert, oriented x4. Grossly intact neurological function Fluid Balance (Past 24 Hours): V=8929 N=6477 Ksd=2410 Intake & Output 04/21/19 04/22/19 04/23/19 04/24/19 06:59 06:59 06:59 06:59 Intake Total 702 3545.0 Output Total 480 1262 235 Balance 222 2283.0 -235 Weight 39.829 kg 39.599 kg Intake: IV Fluids 534 2263 ABX - CEFEPIME 60 ABX - FLAGYL 109 LR 0 1964 NS (0.9%) 534 130 IVPB 168 284 ABX - CEFEPIME 57 65 ABX - FLAGYL 111 219 Medicated IV 518.0 Levophed 418 Neosynephrine 100.0 Oral 480 Output: Maurer 480 1262 235 Labs: Laboratory Results - last 24 hr 04/21/19 04/22/19 04/22/19 20:05 04:45 12:07 WBC RBC Hgb Hct MCV MCH MCHC RDW Plt Count MPV Neut % (Auto) Lymph % (Auto) Martin % (Auto) Eos % (Auto) Baso % (Auto) Absolute Neuts (auto) Absolute Lymphs (auto) Absolute Monos (auto) Absolute Eos (auto) Absolute Basos (auto) Absolute Nucleated RBC Immature Gran % Neutrophils % Band Neutrophils % Monocytes % Nucleated RBC % Normal RBC Morphology [facility]cle[facility] Cells Elliptocytes Schistocytes Hem Pathologist Commnt INR (Anticoag Therapy) APTT Fibrinogen D-Dimer, Quantitative Sodium 142 Potassium 5.0 Chloride 119 H Carbon Dioxide 10 L* Anion Gap 13 H BUN 63 H Creatinine 1.72 H Est GFR ( Amer) 34.6 Est GFR (Non-Af Amer) 28.6 BUN/Creatinine Ratio 36.6 H Glucose 85 POC Glucose (mg/dL) Calcium 7.2 L Total Bilirubin AST ALT Alkaline Phosphatase Total Protein Albumin Globulin Albumin/Globulin Ratio 04/23/19 04/23/19 04/23/19 00:21 05:00 05:00 WBC 49.1 H RBC 3.41 L Hgb 10.5 L Hct 32 L MCV 94 MCH 31 MCHC 33 RDW 16 H Plt Count 159 MPV 9.3 Neut % (Auto) 96.4 Lymph % (Auto) 1.1 Martin % (Auto) 1.7 Eos % (Auto) 0.7 Baso % (Auto) 0.1 Absolute Neuts (auto) 47.3 H Absolute Lymphs (auto) 0.6 L Absolute Monos (auto) 0.8 Absolute Eos (auto) 0.3 Absolute Basos (auto) 0.0 Absolute Nucleated RBC 0.0 Immature Gran % 9.0 Neutrophils % 90.0 Band Neutrophils % 9.0 H Monocytes % 1.0 Nucleated RBC % 0.0 Normal RBC Morphology Not Reportable Mcleod Cells 1+ Elliptocytes 1+ Schistocytes Hem Pathologist Commnt INR (Anticoag Therapy) 3.04 H APTT 50.7 H Fibrinogen D-Dimer, Quantitative Sodium Potassium Chloride Carbon Dioxide Anion Gap BUN Creatinine Est GFR ( Amer) Est GFR (Non-Af Amer) BUN/Creatinine Ratio Glucose POC Glucose (mg/dL) 124 H Calcium Total Bilirubin AST ALT Alkaline Phosphatase Total Protein Albumin Globulin Albumin/Globulin Ratio 04/23/19 04/23/19 05:00 09:54 WBC RBC Hgb Hct MCV MCH MCHC RDW Plt Count 159 MPV Neut % (Auto) Lymph % (Auto) Martin % (Auto) Eos % (Auto) Baso % (Auto) Absolute Neuts (auto) Absolute Lymphs (auto) Absolute Monos (auto) Absolute Eos (auto) Absolute Basos (auto) Absolute Nucleated RBC Immature Gran % Neutrophils % Band Neutrophils % Monocytes % Nucleated RBC % Normal RBC Morphology [place] Cells Elliptocytes Schistocytes Absent Hem Pathologist Commnt INR (Anticoag Therapy) 2.06 H APTT 48.5 H Fibrinogen 481.8 H D-Dimer, Quantitative > 1050 H Sodium 141 Potassium 4.6 Chloride 118 H Carbon Dioxide 11 L* Anion Gap 12 H BUN 64 H Creatinine 1.60 H Est GFR ( Amer) 37.6 Est GFR (Non-Af Amer) 31.1 BUN/Creatinine Ratio 40.0 H Glucose 114 H POC Glucose (mg/dL) Calcium 7.8 L Total Bilirubin 2.50 H D AST 141 H ALT 107 H Alkaline Phosphatase 171 H Total Protein 5.1 L Albumin 2.9 L Globulin 2.2 Albumin/Globulin Ratio 1.3 Nutrition: Clear liquid diet Impression: 70 yo female with history of Melanoma, Crohns disease on chronic pred 5mg daily , arthritis, GERD, HTN, Atrial flutter, urinary retention, presented to [facility] ED for lethargy and weakness for a few days before sending to hospital. She was found to be in severe sepsis with significant hypotension requiring presser, and lactic acidosis, she was also found to have choledocholithiasis, with cholelithiasis and dilated pancreatic duct, which is the likely source of infection. 1. Septic shock due to chledochlithiasis and ascending cholangitis 2. Metabolic acidosis 3. Tachycardia likely appropriate to her sepsis, b/g AFib/flutter 4. HERLINDA due to sepsis and dehydration 5. Crohn's disease stable s/p two bowel resection, on chronic steroid 6. Melanoma- patient denied the history though documented in H&P 7. Urinary retention on Maurer 8. Neuropathy 9. GERD 10. HTN 11. non obstructing renal calculi and 2mm ureter calculi (right side) with mild hydronephrosis Plan: Neuro- came in with confusion, alert and oriented now, no active issues. CVS- -Continue phenylephrine to Maintain MAP about 65, baseline BP 90s at home -iv metoprolol if HR>130 -Echocardiogram 04/21 normal LV function Resp-no active issues ID- - E.coli and klebsiella bacteremia from blood cs - likely source is hepatobillary, cholangitis, choledocholithiasis likely - plan for ERCP however delayed due to coagulopathy - will continue cefepime and flagyl for now, clinically responding GI- - appreciate gastro input, will hold it ERCP and correct her coagulopathy first , hopefully ERCP tomorrow - further cholecystectomy will be needed in the future - Crohn disease: stable disease, on home dose pred 5mg, increase to stress dose of hydrocort for now - Nutrition: clear liquid for now, - GI prophylaxis : IV PPI daily Renal- -strict I/O, replete to keep K>4, Mg>2 -maurer as indicated for I/O monitoring purpose -repeated bmp still metabolic acidosis but improving, although lactic acid normalized; differential for her high AG metabolic acidosis is starvation ketoacidosis. Heme - Xarelto reversal: one does of Kcentra given yesterday, im vitamin K overnight, no reversal needed with last dose 72 hours ago -appreciate hematology consult, her coagulopathy could be related to her poor nutritional status, will do DIT screening as per hematology Endo-Maintain BG<200, glucose monitoring Q4h during fasting. Musculsk- sit out of bed today Wounds- bilateral LL extremities scaly and erythematous rashes. Nutrition- NPO DVT prophylaxis: will hold off for now for procedure tomorrow GI prophylaxis: iv pantoprazole Central Line:no Arterial Line:no Maurer Cathetor: D3 for urinary retention Disposition: Patient requires Critical Care/ICU for severe sepsis requiring presser support Patient clinical status: stable Code Status: full code Total Critical Care time is 45 minutes, excluding procedures/teaching <Zehra Dumont - Last Filed: 04/23/19 17:10> Plan: This service has been performed by a resident under the direction of a teaching physician. I, Zehra Dumont, performed the service, or was physically present during the critical, or cross portions of the service, furnished by the resident. I participated in the management of the patient. 79 year old woman with h/o Crohn's disease who presents with septic shock due to cholangitis. Septic shock due to cholangitis Cholangitis due to choledocholithiasis E coli bacteremia Transaminitis Hyperbilirubinemia Metabolic acidosis HERLINDA Crohn's disease Atrial flutter Patient has no complaints this morning. She denies abdominal pain, chest pain, or shortness of breath. Has not been OOB yet but would like to try to sit in a chair today. On exam, she has mild tenderness to palpation in the right lower quadrant. She is awake and alert, oriented to person, place, time. Phenylephrine weaned off this morning. Goal MAP >60. L subclavian central line, plan to remove possibly tomorrow if there is peripheral access. Home metoprolol re-started due to tachycardia. Tachycardia likely 2/2 a fib and response to sepsis ERCP likely tomorrow due to elevated INR today. Hematology is following. Vitamin K given. Continue cefepime and flagyl for cholangitis and E coli/Klebsiella variicola bacteremia Continue stress dose steroids but plan to return to home dose prednisone tomorrow after ERCP. Clear liquids, NPO after midnight D/c Maurer. Patient denies urinary retention and does not use Maurer at home SCDs only for DVT prophylaxis. OOB to chair with assistance. Critical Care Time: 30 minutes, excluding procedures/teaching Zehra Dumont MD
[2019-04-23] MEDS: Metoprolol Tartrate TAB* 25 MG PO SCH ×2 (13:52→21:31)
--- NOTE | 2019-04-23 15:29 | PN ---
Progress Note - Progress Note Date of Service: 04/23/19 Note: She still has right sided pain (though less) and WBC still up with elevated LFTs Daily Rounds Hydrocortisone Sodium Succinate (Solu-Cortef*) 100 mg IV Q8H [facility] Last Admin: 04/23/19 08:18 Dose: 100 mg Metronidazole/Sodium Chloride (Flagyl 500 Mg Ivpb*) 500 mg in 100 mls @ 100 mls /hr IVPB Q8H [facility] Last Admin: 04/23/19 08:18 Dose: 100 mls/hr Cefepime HCl 1 gm/ Sodium (Chloride) 50 mls @ 100 mls/hr IVPB Q12H [facility] Last Admin: 04/23/19 12:04 Dose: 100 mls/hr Phenylephrine HCl 50 mg/ (Sodium Chloride) 250 mls @ 15 mls/hr IV .PER PROTOCOL [facility]; Protocol Last Admin: 04/22/19 16:19 Dose: 15 mls/hr Lactated Ringer's (Lactated Ringers 1000 Ml Bag*) 1,000 mls @ 75 mls/hr IV PER RATE [facility] Last Admin: 04/23/19 05:36 Dose: 75 mls/hr Metoprolol Tartrate (Lopressor Iv*) 5 mg IV Q6H PRN PRN Reason: HEART RATE/PULSE GREATER THAN: Last Admin: 04/23/19 08:18 Dose: 5 mg Metoprolol Tartrate (Lopressor Tab*) 12.5 mg PO Q12HR [facility] Last Admin: 04/23/19 13:52 Dose: 12.5 mg Ondansetron HCl (Zofran Inj*) 4 mg IV Q6H PRN PRN Reason: NAUSEA Pantoprazole Sodium (Protonix Iv*) 40 mg IV DAILY [facility] Last Admin: 04/23/19 08:18 Dose: 40 mg Allergies Allergy/AdvReac Type Severity Reaction Status Date / Time apixaban [From Eliquis] Allergy Dizziness Verified 12/29/18 12:41 clindamycin Allergy Unknown Verified 12/29/18 12:41 Reaction Details meperidine [From Demerol] Allergy Vomiting Verified 12/29/18 12:41 Penicillins Allergy Rash Verified 12/29/18 12:41 Sulfa (Sulfonamide Allergy Anaphylatic Verified 12/29/18 12:41 Antibiotics) Shock sulfamethoxazole Allergy Unknown Verified 12/29/18 12:41 [From Bactrim] Reaction Details trimethoprim [From Bactrim] Allergy Unknown Verified 12/29/18 12:41 Reaction Details ciprofloxacin [From Cipro] AdvReac Vomiting Verified 04/22/19 15:42 Weight 87 lb 4.8 oz Vital Signs - 12 hr Temp Pulse Resp BP Pulse Ox 04/23/19 13:00 154 23 116/75 95 04/23/19 12:31 145 24 116/91 81 04/23/19 12:15 23 114/75 04/23/19 12:00 107 21 102/73 93 04/23/19 11:45 111 21 102/76 98 04/23/19 11:30 114 22 116/80 99 04/23/19 11:15 29 114/81 04/23/19 11:08 113/91 04/23/19 11:00 97.3 F 24 82/70 04/23/19 10:46 97.7 F 122 24 88/69 100 04/23/19 10:30 97.7 F 91 11 89/60 100 04/23/19 10:16 97.5 F 14 101/76 04/23/19 10:00 97.7 F 91 19 100/65 100 04/23/19 09:45 97.5 F 80 12 92/61 100 04/23/19 09:30 97.5 F 88 19 101/61 100 04/23/19 09:16 97.5 F 90 14 101/51 97 04/23/19 09:01 97.7 F 108 21 88/62 97 04/23/19 09:00 97.7 F 97 18 98 04/23/19 08:30 97.7 F 116 23 103/76 94 04/23/19 08:16 97.7 F 152 23 96/63 99 04/23/19 08:00 97.7 F 153 18 89/74 98 04/23/19 07:57 97.7 F 158 25 118/78 97 04/23/19 07:46 97.7 F 151 20 152/113 95 04/23/19 07:30 97.9 F 121 15 105/68 100 04/23/19 07:15 97.9 F 11 85/56 04/23/19 07:00 97.9 F 12 90/61 04/23/19 06:45 97.7 F 89 12 104/75 100 03/18/20 06:30 97.7 F 81 13 95/59 100 04/23/19 06:15 97.5 F 107 13 118/87 99 04/23/19 06:00 97.7 F 112 24 100/57 99 04/23/19 05:45 97.7 F 92 17 92/72 100 04/23/19 05:30 97.5 F 104 13 98/70 99 04/23/19 05:15 97.5 F 100 17 92/79 100 04/23/19 05:08 97.5 F 114 17 93/62 99 04/23/19 05:00 97.5 F 128 18 98 04/23/19 04:30 97.5 F 148 17 121/88 94 04/23/19 04:15 97.5 F 113 19 100/81 98 04/23/19 04:00 97.5 F 95 14 94/71 100 04/23/19 03:45 97.7 F 154 22 83/69 98 04/23/19 03:30 97.7 F 91 14 95/63 98 Exam - alert, abdomen with ++ BS - moderately tender in right [place] abd 04/23/19 04/23/19 04/23/19 05:00 05:00 05:00 WBC 49.1 H RBC 3.41 L Hgb 10.5 L Hct 32 L MCV 94 MCH 31 MCHC 33 RDW 16 H Plt Count 159 MPV 9.3 Neut % (Auto) 96.4 Lymph % (Auto) 1.1 [place] % (Auto) 1.7 Eos % (Auto) 0.7 Baso % (Auto) 0.1 Absolute Neuts (auto) 47.3 H Absolute Lymphs (auto) 0.6 L Absolute Monos (auto) 0.8 Absolute Eos (auto) 0.3 Absolute Basos (auto) 0.0 Absolute Nucleated RBC 0.0 Immature Gran % 9.0 Neutrophils % 90.0 Band Neutrophils % 9.0 H Monocytes % 1.0 Nucleated RBC % 0.0 Normal RBC Morphology Not Reportable [place] Cells 1+ Elliptocytes 1+ Schistocytes Hem Pathologist Commnt INR (Anticoag Therapy) 3.04 H APTT 50.7 H Fibrinogen D-Dimer, Quantitative Sodium 141 Potassium 4.6 Chloride 118 H Carbon Dioxide 11 L* Anion Gap 12 H BUN 64 H Creatinine 1.60 H Est GFR ( Amer) 37.6 Est GFR (Non-Af Amer) 31.1 BUN/Creatinine Ratio 40.0 H Glucose 114 H POC Glucose (mg/dL) Calcium 7.8 L Total Bilirubin 2.50 H D AST 141 H ALT 107 H Alkaline Phosphatase 171 H Total Protein 5.1 L Albumin 2.9 L Globulin 2.2 Albumin/Globulin Ratio 1.3 04/23/19 09:54 WBC RBC Hgb Hct MCV MCH MCHC RDW Plt Count 159 MPV Neut % (Auto) Lymph % (Auto) [place] % (Auto) Eos % (Auto) Baso % (Auto) Absolute Neuts (auto) Absolute Lymphs (auto) Absolute Monos (auto) Absolute Eos (auto) Absolute Basos (auto) Absolute Nucleated RBC Immature Gran % Neutrophils % Band Neutrophils % Monocytes % Nucleated RBC % Normal RBC Morphology [place] Cells Elliptocytes Schistocytes Absent Hem Pathologist Commnt INR (Anticoag Therapy) 2.06 H APTT 48.5 H Fibrinogen 481.8 H D-Dimer, Quantitative > 1050 H Sodium Potassium Chloride Carbon Dioxide Anion Gap BUN Creatinine Est GFR ( Amer) Est GFR (Non-Af Amer) BUN/Creatinine Ratio Glucose POC Glucose (mg/dL) Calcium Total Bilirubin AST ALT Alkaline Phosphatase Total Protein Albumin Globulin Albumin/Globulin Ratio Microbiology 04/21/19 20:05 Aerobic Blood Culture - Preliminary Blood Venous Escherichia Coli 04/21/19 20:05 Aerobic Blood Culture - Preliminary Blood Venous Escherichia Coli Klebsiella Variicola Anaerobic Blood Culture - Preliminary Escherichia Coli Klebsiella Variicola Home Meds predniSONE 10 mg TAB [Deltasone 10 MG TAB*] 5 mg PO MOWEFR 01/28/14 traMADol TAB* [Ultram*] 50 mg PO TID 02/10/14 Cholecalciferol TAB* [Vitamin D TAB*] 1,000 unit PO QAM 05/07/14 Multivitamin [Multivitamins] 1 cap PO QAM 05/07/14 Raloxifene (NF) [Evista(NF)] 60 mg PO QAM 05/07/14 Hydrocodone/APAP 5/300 (NF) [Vicodin 5 MG/300 MG(NF)] 1 tab PO Q6HR PRN Ascorbic Acid TAB* [Vitamin C TAB*] 500 mg PO QAM 11/23/14 Diphenoxylate HCl/Atropine [Lomotil] 1 tab PO BID 09/11/16 Mercaptopurine TAB* [Purinethol TAB*] 50 mg PO DAILY 09/11/16 Metoprolol Succinate XL TAB* [Toprol XL TAB*] 25 mg PO DAILY 09/11/16 Spironolactone TAB* [Aldactone TAB*] 12.5 mg PO DAILY 09/11/16 Oxybutynin XL TAB* [Ditropan XL TAB*] 5 mg PO DAILY 08/02/17 Pyridoxine TAB* [Vitamin B6 TAB*] 50 mg PO DAILY 08/02/17 Rivaroxaban TAB(*) [Xarelto 15 mg(*)] 15 mg PO DAILY 08/02/17 Diphenoxylat/Atrop 2.5-0.025M* [Lomotil TAB*] 1 tab PO QID PRN 12/18/17 Cyanocobalamin TAB* [Vitamin B12 TAB*] 1,000 mcg PO DAILY 04/21/19 Gabapentin CAP(*) [Neurontin 300 CAP(*)] 300 mg PO BID 04/21/19 Gabapentin CAP(*) [Neurontin 300 CAP(*)] 600 mg PO BEDTIME 04/21/19 Losartan TAB* [Cozaar TAB*] 25 mg PO DAILY 04/21/19 raNITIdine SOLN* (NF) ORALSYR [Zantac SOLN* ORALSYR (NF)] 10 ml PO BID 04/21/19 Xarelto effect should be gone by tomorrow. Plan on ERCP tomorrow with anesthesia assistance WBC continues to be an outlier
[2019-04-23] MEDS ORDERED: Polyethylene Glycol 3350* 17 GM PACKET PO PRN (17:01)
[2019-04-23] MEDS: traMADol TAB* 50 MG PO PRN (21:30)
[2019-04-23] MEDS ORDERED: Magnesium Hydroxide LIQ* 30 ML UDC PO PRN (23:19)
[2019-04-24] MEDS: Cefepime(*) 1 GM in NS 0.9% 50 ML* 50 ML IVPB SCH ×2 (01:40→13:27)
[2019-04-24] MEDS: Hydrocortisone INJ* 100 MG/2 ML VIAL (in pyxis) IV SCH ×4 (01:40→23:09)
[2019-04-24] MEDS: metroNIDAZOLE IV 500 MG/100ML* 500 MG/100 ML BAG IVPB SCH ×4 (02:51→23:09)
[2019-04-24 04:58] LABS: Hematocrit 32 % (35-47); Hemoglobin 10.4 g/dL (12.0-16.0); Mean Corpuscular HGB Conc 33 g/dL (31-36); Mean Corpuscular Hemoglobin 31 pg (27-31); Mean Corpuscular Volume 94 fL (80-97); Mean Platelet Volume 9.7 fL (7.4-10.4); Platelet Count 137 10^3/uL (150-450); Red Cell Distribution Width 16 % (10-15); White Blood Count 38.3 10^3/uL (3.5-10.8)
[2019-04-24 05:07] LABS: Activated Partial Thrombo Time 40.4 seconds (26.0-38.0); INR 1.46 (0.82-1.09)
[2019-04-24 05:10] LABS: Albumin 2.9 g/dL (3.2-5.2); Albumin/Globulin Ratio 1.3 (1-3); BUN/Creatinine Ratio 39.6 (8-20); Calcium 8.4 mg/dL (8.6-10.3); EGFR African American 39.3 (>60); EGFR Non-African American 32.5 (>60); Globulin 2.3 g/dL (2-4); Magnesium 1.5 mg/dL (1.9-2.7); Phosphorus 4.8 mg/dL (2.5-5.0); Potassium 4.4 mmol/L (3.5-5.0); Total Bilirubin 1.7 mg/dL (0.2-1.0); Total Protein 5.2 g/dL (6.4-8.9)
[2019-04-24 05:22] LABS: ABS Lymphocytes 0.6 10^3/ul (1.0-4.8); ABS Monocytes 0.7 10^3/ul (0-0.8); Lymphocyte % 1.6 %
[2019-04-24] MEDS: traMADol TAB* 50 MG PO PRN (07:56)
[2019-04-24] MEDS: Metoprolol Tartrate TAB* 25 MG PO SCH ×2 (07:56→23:03)
[2019-04-24] MEDS: Pantoprazole IV* 40 MG IV SCH (07:56)
[2019-04-24] MEDS: Cyanocobalamin TAB* 500 MCG PO SCH (10:45)
[2019-04-24] MEDS: Gabapentin CAP(*) 300 MG PO SCH ×2 (10:45→22:27)
[2019-04-24] MEDS: Senna TAB 8.6 mg* TAB PO SCH ×2 (10:45→23:04)
[2019-04-24] MEDS: Ascorbic Acid TAB* 500 MG PO SCH (10:46)
[2019-04-24] MEDS: Cholecalciferol TAB* 1000 UNITS PO SCH (10:46)
[2019-04-24] MEDS: Pyridoxine TAB* 50 MG PO SCH (10:46)
[2019-04-24] MEDS: Docusate CAP* 100 MG PO SCH ×2 (10:46→23:03)
[2019-04-24] MEDS: Lactated Ringers 1000 ML Bag* 1,000 ML IV SCH ×2 (11:05→22:50)
--- NOTE | 2019-04-24 11:28 | PN ---
<Tegan Whaley - Last Filed: 04/24/19 11:22> Date of Service: 04/24/19 Critical Care Services: Overnight events, Patient felt terrible with two night sleeplessness. She also had chills overnight. Managed to off levophed yesterday Tele: Afib with heart rate 80-100, SBP around 100-120mmhg On 2L InO2 for comfort Vital Signs: Temp Pulse Resp BP SpO2 FiO2 98.7 F 92 18 111/78 97 04/24/19 08:00 04/24/19 11:00 04/24/19 11:00 04/24/19 11:00 04/24/19 11:00 Physical Exam: General: cachetic looking, skinny, NAD HEENT: Normocephalic, atraumatic, non-icteric sclera, mucosa moist. Neck: soft, supple, no JVD CV Fast rate and rhythm. no murmurs or rubs Pulm/Chest: clear on auscultation Abdomen/GI: distended, soft, non tender, BS+ MSK/Skin: warm, dry, intact, +2 pulses+, no edema or cyanosis Extremity: scaly erythematous papules on all extremities and some parts of trunk - chronic Neuro: alert, oriented x4. Grossly intact neurological function Fluid Balance (Past 24 Hours): I= O= Net Intake & Output 04/22/19 04/23/19 04/24/19 04/25/19 06:59 06:59 06:59 06:59 Intake Total 702 3545.0 2581 120 Output Total 480 1262 335 175 Balance 222 2283.0 2246 -55 Weight 39.829 kg 39.599 kg 39.418 kg Intake: IV Fluids 534 2263 1811 ABX - CEFEPIME 60 ABX - FLAGYL 109 10 LR 0 1964 1682 NS (0.9%) 534 130 69 Vitamin K 50 IVPB 168 284 151 ABX - CEFEPIME 57 65 ABX - FLAGYL 111 219 100 NS (0.9%) 51 Medicated IV 518.0 19 Levophed 418 Neosynephrine 100.0 19 Oral 480 600 120 Output: Urine 0 175 Maurer 480 1262 335 Other: Estimated Void Small # Bowel Movements 1 Estimated Stool Amount Small # Voids 1 Labs: Laboratory Results - last 24 hr 04/24/19 04/24/19 04/24/19 04:30 04:30 04:30 WBC 38.3 H RBC 3.40 L Hgb 10.4 L Hct 32 L MCV 94 MCH 31 MCHC 33 RDW 16 H Plt Count 137 L MPV 9.7 Neut % (Auto) 96.7 Lymph % (Auto) 1.6 [place] % (Auto) 1.7 Eos % (Auto) 0.0 Baso % (Auto) 0.0 Absolute Neuts (auto) 37.0 H Absolute Lymphs (auto) 0.6 L Absolute Monos (auto) 0.7 Absolute Eos (auto) 0.0 Absolute Basos (auto) 0.0 Absolute Nucleated RBC 0.0 Nucleated RBC % 0.0 INR (Anticoag Therapy) 1.46 H APTT 40.4 H Sodium 141 Potassium 4.4 Chloride 120 H Carbon Dioxide 13 L* Anion Gap 8 BUN 61 H Creatinine 1.54 H Est GFR ( Amer) 39.3 Est GFR (Non-Af Amer) 32.5 BUN/Creatinine Ratio 39.6 H Glucose 146 H Calcium 8.4 L Phosphorus 4.8 Magnesium 1.5 L Total Bilirubin 1.70 H AST 77 H ALT 89 H Alkaline Phosphatase 162 H Total Protein 5.2 L Albumin 2.9 L Globulin 2.3 Albumin/Globulin Ratio 1.3 Nutrition: NPO since midnight for ERCP today Impression: 70 yo female with history of Melanoma, Crohns disease on chronic pred 5mg daily , arthritis, GERD, HTN, Atrial flutter, urinary retention, presented to [facility] ED for lethargy and weakness for a few days before sending to hospital. She was found to be in severe sepsis with significant hypotension requiring presser, and lactic acidosis, she was also found to have choledocholithiasis, with cholelithiasis and dilated pancreatic duct, which is the likely source of infection. 1. Septic shock - E.coli and Klebsiella Variicola bacteremia, due to chledochlithiasis and ascending cholangitis likely, superimposing UTI as well 2. Metabolic acidosis 3. Tachycardia likely appropriate to her sepsis, b/g AFib/flutter- resolving 4. HERLINDA due to sepsis and dehydration 5. Crohn's disease stable s/p two bowel resection, on chronic steroid 6. Melanoma- patient denied the history though documented in H&P 7. Urinary retention on Maurer 8. Neuropathy 9. GERD 10. HTN 11. non obstructing renal calculi and 2mm ureter calculi (right side) with mild hydronephrosis Plan: Neuro- came in with confusion, alert and oriented now, no active issues. CVS- - BP stable off presser -iv metoprolol if HR>130, tachycardia improving -Echocardiogram 04/21 normal LV function Resp-no active issues ID- - E.coli and klebsiella bacteremia from blood cs - likely source is hepatobillary, cholangitis, choledocholithiasis likely, possible superimposing UTI - plan for ERCP however delayed due to coagulopathy, will do it today - will continue cefepime, flagyl and annidulafungin now GI- - ERCP today - further cholecystectomy will be needed in the future - Crohn disease: stable disease, on home dose pred 5mg, increase to stress dose of hydrocort for now - Nutrition: clear liquid for now, - GI prophylaxis : IV PPI daily Renal- -strict I/O, replete to keep K>4, Mg>2 -maurer as indicated for I/O monitoring purpose -hypercholeremic metabolc acidosis due to NS overuse. will continue to watch, no acute intervention for now Heme - Xarelto reversal: last dose 04/20, no further reversal needed. -appreciate hematology consult, patient will be able to do EFCP. Endo-Maintain BG<200, glucose monitoring Q4h during fasting. Musculsk- sit out of bed today Wounds- bilateral LL extremities scaly and erythematous rashes. Nutrition- NPO DVT prophylaxis: will hold off for now for procedure tomorrow GI prophylaxis: iv pantoprazole Central Line:no Arterial Line:no Maurer Cathetor: D4 for urinary retention Disposition: Patient requires Critical Care/ICU for severe sepsis requiring presser support Patient clinical status: stable Code Status: full code Total Critical Care time is 45 minutes, excluding procedures/teaching <Zehra Dumont - Last Filed: 04/24/19 17:56> Plan: This service has been performed by a resident under the direction of a teaching physician. Zehra Ruiz, performed the service, or was physically present during the critical, or cross portions of the service, furnished by the resident. I participated in the management of the patient. 79 year old woman with h/o Crohn's disease who presents with septic shock due to cholangitis. Septic shock due to cholangitis Cholangitis due to choledocholithiasis E coli bacteremia Transaminitis Hyperbilirubinemia Metabolic acidosis HERLINDA Crohn's disease Atrial flutter Patient did not sleep well last night, but has no other complaints. She denies abdominal pain, chest pain, or shortness of breath. She has not had a bowel movement since before admission. NPO since midnight for ERCP. On exam, she has mild tenderness to palpation in the right lower quadrant. Abdomen is soft but distended. She is awake and alert, oriented to person, place, time. Hemodynamically stable off pressors. Goal MAP >60. Plan to remove L subclavian central line after ERCP. Continue home metoprolol. ERCP today. Continue cefepime and flagyl for cholangitis and E coli/Klebsiella variicola bacteremia Continue stress dose steroids but plan to return to home dose prednisone after ERCP. NPO, anticipate clear liquids after ERCP. SCDs only for DVT prophylaxis. Holding home Xarelto (for a fib) due to procedure. OOB to chair with assistance. Dispo: Transfer to floor today Status: Fair, improving Code status: Full Zehra Dumont MD
[2019-04-24] MEDS ORDERED: Rocuronium* 10 MG/ML VIAL ONE (15:07)
[2019-04-24] MEDS ORDERED: fentaNYL* 50 MCG/ML 2 ML VIAL (100 MCG VIAL) ONE (15:07)
[2019-04-24] MEDS ORDERED: Midazolam* 1 MG/ML 2 ML VIAL (2 MG) ONE (15:07)
[2019-04-24] MEDS ORDERED: KETAMINE HCL* 50 MG/ML 10 ML VIAL ONE (15:07)
[2019-04-24] MEDS ORDERED: Lidocaine 2% PF * 5 ML VIAL ONE (16:31)
[2019-04-24] MEDS ORDERED: Diltiazem IV push/loading dose 5 MG/ML 5 ML vial (25 mg) ONE (16:31)
[2019-04-24] MEDS ORDERED: Norepinephrine VIAL* 1 MG/ML 4 ML VIAL ONE (16:31)
--- NOTE | 2019-04-24 19:37 | PN ---
Hospitalist Progress Note Date of Service: 04/24/19 Patient seen in PACU per request of anesthesia. She is s/p ERCP. Prior to the procedure, pt was alert and conversive. She is currently lethargic but does open eyes to name. She quickly falls back asleep. She previously had concern for hypotension but this has improved. --Elderly female, lying in PACU stretcher, opens eyes to name, does not answer questions or follow commands --Pupils equal and react to light --CV: RRR, no murmur appreciated. DP 2+ and palpable to radial, popliteal, posterior tibialis, and dorsalis pedal sites --Lungs: CTA anteriorly --Abd: soft, hypoactive BS 79 yo female with PMH significant for Crohn's disease, presenting with septic shock 2/2 cholangitis and choledocholithiasis, now s/p ERCP. Pressures have improved post procedure, but she is still lethargic. SBP in 120 and HR 80s-100s. She requires closer monitoring. We will transfer her back to ICU this evening for further monitoring and cancel transfer to [address] [place] [address]. Plan of care and assessment reviewed with Dr. Clarke, who is in agreement with the plan.
[2019-04-24] MEDS ORDERED: Gabapentin CAP(*) 300 MG PO SCH (21:00)
--- NOTE | 2019-04-24 21:25 | PRO ---
DATE: 04/24/19 - ROOM #ICU-16 REFERRING PHYSICIANS: Dr. Marty Corey, Dr. Dayami Watters * PROCEDURE: ERCP with sphincterotomy and then balloon extraction of common bile duct stones, basket lithotripsy of common duct stone and placement of 7-Ecuadorean 7 cm double pigtail stent. INDICATION: This 79-year-old woman presented with cholangitis. Initial shock, tachycardia, acute kidney injury and cholestatic LFTs, all improved over 3 days. Multiple common duct stones were noted on ultrasound and CT. Her Xarelto anticoagulation was reversed, first with Kcentra and then she received oral and intravenous vitamin K with her INR in the morning of the procedure 1.46. Her pulse had diminished into the high 70s and her blood pressure was stable in the 90s. Her creatinine was falling sequentially to 1.6. She denied any pain. Informed consent had been obtained and a sequence of conversation with the patient and with the patient's son who did manage the visit before, nonessential visitors were restricted. ENDOSCOPIST: Dr. Lima. ANESTHESIOLOGIST: Dr. Barnes. FINDINGS: She is a slender woman, 78 to 80 pounds, positioned on the gurney. She was intubated, anesthesia induced. She was then positioned in the semi- prone position. Her vitals remained stable. Dr. Barnes administered a small amount norepinephrine via drip. This was stopped within 10 minutes at the end of the procedure. ERCP: Esophagus - 20% views appeared normal apart from some granular debris retained. Stomach - generally normal mucosa with some erythema. No ulcer was seen. Duodenum - very bulbous protruding intramural segment of the duct was seen and papilla projecting somewhat downward. With a slightly flexed sphincterotome, the papilla was nudged up into a more direct orientation. With the guidewire extending out 2 to 3 mm, cannulation probing was done and free cannulation achieved. The pancreatic duct was never opacified or its course never delineated. The guidewire was placed in the high common hepatic duct area. A sphincterotomy was done and an initial cut deviated towards a 9:30 orientation. The wire was repositioned and went towards a 12 o'clock orientation. Some bile did spill. Cholangiogram showed multiple trapezoidal stones. A 9 to 12 balloon delivered 3 stones rather snugly. Fourth stone had been highest, initially would not come through. Attempts were made with a trapezoid crushing basket to engage this final stone. Some abrading took place but not a dominant rupture of the stone. The sphincterotomy was extended slightly in the noon orientation and further cycles of trapezoid baskets, balloon trapezoid were done without delivering the defiant stone. Finally, a 7-Ecuadorean 7-cm double pigtail stent was delivered and its orientation confirmed to be as desired. The patient seemed to tolerate these and well. IMPRESSION: 1. Status post endoscopic sphincterotomy. 2. Common bile duct stones - 3 delivered, others partially abraded and crushed and 1 defiant stone still present in the distal duct. 3. Common bile duct stent 7-Ecuadorean [address] and the patient will be seen in followup to discuss options. [id number]/[facility] #: [id number] [facility]ENTERRazia
[2019-04-25] MEDS: Cefepime(*) 1 GM in NS 0.9% 50 ML* 50 ML IVPB SCH ×2 (01:24→14:43)
[2019-04-25] MEDS: traMADol TAB* 50 MG PO PRN (01:36)
[2019-04-25 02:40] LABS: Urine Appearance Clear; Urine Bilirubin Negative (Negative); Urine Blood Negative (Negative); Urine Color Amber; Urine Glucose Negative (Negative); Urine Ketones Negative (Negative); Urine Nitrite Negative (Negative); Urine Protein Negative (Negative); Urine Specific Gravity 1.015 (1.010-1.030); Urine Urobilinogen Negative (Negative)
[2019-04-25] MEDS: metroNIDAZOLE IV 500 MG/100ML* 500 MG/100 ML BAG IVPB SCH (06:13)
[2019-04-25] MEDS: Hydrocortisone INJ* 100 MG/2 ML VIAL (in pyxis) IV SCH (06:13)
[2019-04-25 06:17] LABS: Hematocrit 32 % (35-47); Hemoglobin 10.5 g/dL (12.0-16.0); Mean Corpuscular HGB Conc 33 g/dL (31-36); Mean Corpuscular Hemoglobin 31 pg (27-31); Mean Corpuscular Volume 94 fL (80-97); Mean Platelet Volume 9.7 fL (7.4-10.4); Platelet Count 118 10^3/uL (150-450); Red Blood Count 3.36 10^6 /uL (3.70-4.87); Red Cell Distribution Width 16 % (10-15); White Blood Count 26.5 10^3/uL (3.5-10.8)
[2019-04-25] MEDS ORDERED: Morphine INJ* 2 MG/ML 1 ML SYRINGE (TWO MG - NEW SYRINGE VERSION) IV ONE (06:25)
[2019-04-25 06:34] LABS: ALT 67 U/L (7-52); AST 43 U/L (13-39); Albumin 2.7 g/dL (3.2-5.2); Albumin/Globulin Ratio 1.2 (1-3); Alkaline Phosphatase 167 U/L (34-104); BUN/Creatinine Ratio 41.1 (8-20); Blood Urea Nitrogen 60 mg/dL (6-24); Calcium 8.5 mg/dL (8.6-10.3); EGFR African American 41.8 (>60); EGFR Non-African American 34.6 (>60); Globulin 2.2 g/dL (2-4); Glucose 118 mg/dL (70-100); Magnesium 1.6 mg/dL (1.9-2.7); Phosphorus 4.7 mg/dL (2.5-5.0); Potassium 4.7 mmol/L (3.5-5.0); Sodium 142 mmol/L (135-145); Total Protein 4.9 g/dL (6.4-8.9)
[2019-04-25 06:35] LABS: Anion Gap 9 mmol/L (2-11); CO2 Carbon Dioxide 14 mmol/L (22-32); Chloride 119 mmol/L (101-111)
[2019-04-25 06:53] LABS: ABS Lymphocytes 0.6 10^3/ul (1.0-4.8); ABS Monocytes 0.5 10^3/ul (0-0.8); ABS Neutrophils 25.4 10^3/ul (1.5-7.7); Lymphocyte % 2.1 %
[2019-04-25] MEDS ORDERED: oxyCODONE TAB* 5 MG TAB ONE (08:54)
[2019-04-25] MEDS: Ascorbic Acid TAB* 500 MG PO SCH (08:58)
[2019-04-25] MEDS: Cyanocobalamin TAB* 500 MCG PO SCH (08:59)
[2019-04-25] MEDS: Senna TAB 8.6 mg* TAB PO SCH ×2 (08:59→22:33)
[2019-04-25] MEDS: Pantoprazole IV* 40 MG IV SCH (08:59)
[2019-04-25] MEDS: Gabapentin CAP(*) 300 MG PO SCH ×2 (08:59→22:33)
[2019-04-25] MEDS: Docusate CAP* 100 MG PO SCH ×2 (08:59→22:33)
[2019-04-25] MEDS: Pyridoxine TAB* 50 MG PO SCH (08:59)
[2019-04-25] MEDS: Cholecalciferol TAB* 1000 UNITS PO SCH (08:59)
[2019-04-25] MEDS: oxyCODONE TAB* 5 MG TAB PO PRN ×2 (08:59→15:15)
[2019-04-25] MEDS: Metoprolol Tartrate TAB* 25 MG PO SCH ×2 (08:59→22:33)
[2019-04-25] MEDS ORDERED: Enoxaparin(*) 40 MG/0.4 ML SYR SUBCUT SCH (12:00)
--- NOTE | 2019-04-25 12:00 | CONSULT ---
Consult Consult: Neurology Inpatient Consult Note Date of service: 04/25/2019 Reason for consult: Neurology was consulted by activating the code beard to rapidly assess the patient for stroke. The history was obtained by the patient. I also contacted the patient's son, Dr. Pittman, via telephone. Chief complaint: No complaints. History of Present Illness: Mrs. Alicia Perry is a 79-year-old female who has a history of atrial flutter on Xarelto at home. She also has undiagnosed severe cervical spondylosis with myelopathy that was apparent on the CT head today. The patient [place] [facility] [place] with fevers and abdominal pain. She was found to be in severe sepsis with significant hypotension requiring pressors. She was found to have choledocholithiasis which was reported to be the likely source of infection. She was started on antibiotics with Cefepime, discontinued off Xarelto with the last dose being on 04/20, and was admitted to the ICU for the treatment of sepsis, HERLINDA, metabolic acidosis, and hypotension. She is s/p ERCP on 04/24/2019. Code beard was activated today, 04/25/2019, at 09:57 for symptoms of confusion, word-finding difficulty, and perseveration in speech. The patient is not complaining of any symptoms and is unaware of her deficits. The patient was thought to be last known well at 04/25/2019 at 07:00 during shift change, but no formal cognitive neurological assessment was done. She was also seen by Dr. Whaley after 7:00 who reported that the patient was sleeping and assessment of her language was not perform. I spoke to Dr. Pittman who informed me that the patient has been experiencing some confusion since the procedure yesterday that was thought to be related to hypotension, so the last known well time of 07:00 is not the correct time. According to the nurses notes, the patient was reported to be "awake, alert, and oriented" on 07:00 at 04/24/2019. She was also reported to have headaches yesterday. When she arrived from PACU yesterday , it was reported that the patient was "drowsy from sedation" then at 0000 today , the patient is more awake, alert, and oriented." She was complaining of "generalized pain" at 06:30. NIHSS: 1-pronator drift on the left upper extrmeity 1- pronator drift on the right upper extremity 1- mild-moderate aphasia 1- tactile extinction on the right Intervenous alteplase decision time: 10:20. She is not a candidate for alteplase therapy due to a questionable and unclear last known well time and elevated aPTT. The patient is unaware of her deficits; therefore, cannot state exactly when her symptoms started. Labs, Imaging and Other Diagnostics: CT head without contrast completed on 04/25/2019: no acute intracranial abnormality. Anterolisthesis of C2 on C3 resulting in severe spinal canal stenosis. WBC: 26.5 Platelet count: 118 aPTT: 40.4 INR: 1.46 BUN: 60 Creatinine: 1.46 Past Medical and Surgical History: - Severe upper cervical spinal stenosis. She was last seen by Dr. Connolly on 2018 who is following her spine issue every 6 months. - Atrial flutter/fibrillation on Xeralto - Melanoma - Neuropathy - Chronic maurer for retention - Tricuspid insufficiency - Moderate to severe 2019: severe. - Hypertension - Thoracic Aneurysm - 4.1 cm 2014 - Renal Insufficiency - Alcohol Abuse - Chrohn's Disease - dependent on low dose predisone. - Osteoporosis - Neuropathy - Hands - Arthritis - Degenerative Arthritis - Vitamin B12 Deficiency - Renal Calculi - Bowel resection - (1994) Two partial bowel resections, likely involving small bowel, reannasimosed later - Knee Surgery - Right knee replacement - Arthroscopic, Knee - Left knee arthroscopy - Tonsillectomy - Breast Biopsy - Two benign breast biopsies - inguinal Hernia Repair - (2010) Right - Appendectomy - Toe amputation - 2013, 2016 Second toe, partial resection of third metatarsal Family History: No family history of stroke or seizures. Social History: The patient denied any recent tobacco use. She is a former smoker and has quit years ago. She denied alcohol use. She lives alone. She is walker dependent. Home medications: predniSONE 10 mg TAB [Deltasone 10 MG TAB*] 5 mg PO MOWEFR 01/28/14 [History Confirmed 04/21/19] traMADol TAB* [Ultram*] 50 mg PO TID 02/10/14 [History Confirmed 04/21/19] Cholecalciferol TAB* [Vitamin D TAB*] 1,000 unit PO QAM 05/07/14 [History Confirmed 04/21/19] Multivitamin [Multivitamins] 1 cap PO QAM 05/07/14 [History Confirmed 04/21/19] Raloxifene (NF) [Evista(NF)] 60 mg PO QAM 05/07/14 [History Confirmed 04/21/19] Hydrocodone/APAP 5/300 (NF) [Vicodin 5 MG/300 MG(NF)] 1 tab PO Q6HR PRN [History Confirmed 04/21/19] Ascorbic Acid TAB* [Vitamin C TAB*] 500 mg PO QAM 11/23/14 [History Confirmed 04/21/19] Diphenoxylate HCl/Atropine [Lomotil] 1 tab PO BID 09/11/16 [History Confirmed ] Mercaptopurine TAB* [Purinethol TAB*] 50 mg PO DAILY 09/11/16 [History Confirmed 04/21/19] Metoprolol Succinate XL TAB* [Toprol XL TAB*] 25 mg PO DAILY 09/11/16 [History Confirmed 04/21/19] Spironolactone TAB* [Aldactone TAB*] 12.5 mg PO DAILY 09/11/16 [History Confirmed 04/21/19] Oxybutynin XL TAB* [Ditropan XL TAB*] 5 mg PO DAILY 08/02/17 [History Confirmed 04/21/19] Pyridoxine TAB* [Vitamin B6 TAB*] 50 mg PO DAILY 08/02/17 [History Confirmed ] Rivaroxaban TAB(*) [Xarelto 15 mg(*)] 15 mg PO DAILY 08/02/17 [History Confirmed 04/21/19] Diphenoxylat/Atrop 2.5-0.025M* [Lomotil TAB*] 1 tab PO QID PRN 12/18/17 [ History Confirmed 04/21/19] Cyanocobalamin TAB* [Vitamin B12 TAB*] 1,000 mcg PO DAILY 04/21/19 [History Confirmed 04/21/19] Gabapentin CAP(*) [Neurontin 300 CAP(*)] 300 mg PO BID 04/21/19 [History Confirmed 04/21/19] Gabapentin CAP(*) [Neurontin 300 CAP(*)] 600 mg PO BEDTIME 04/21/19 [History Confirmed 04/21/19] Losartan TAB* [Cozaar TAB*] 25 mg PO DAILY 04/21/19 [History Confirmed 04/21/19] raNITIdine SOLN* (NF) ORALSYR [Zantac SOLN* ORALSYR (NF)] 10 ml PO BID 04/21/19 [History Confirmed 04/21/19] Allergies apixaban [From Eliquis] Allergy (Verified 12/29/18 12:41) Dizziness clindamycin Allergy (Verified 12/29/18 12:41) Unknown Reaction Details meperidine [From Demerol] Allergy (Verified 12/29/18 12:41) Vomiting Penicillins Allergy (Verified 12/29/18 12:41) Rash Sulfa (Sulfonamide Antibiotics) Allergy (Verified 12/29/18 12:41) Anaphylatic Shock sulfamethoxazole [From Bactrim] Allergy (Verified 12/29/18 12:41) Unknown Reaction Details trimethoprim [From Bactrim] Allergy (Verified 12/29/18 12:41) Unknown Reaction Details ciprofloxacin [From Cipro] Adverse Reaction (Verified 04/22/19 15:42) Vomiting Review of Systems: A 14-point ROS was obtained and otherwise negative except for what was mentioned in the HPI. Physical Exam: Vital Signs - 12 hr Temp Pulse Resp BP Pulse Ox 04/25/19 11:30 97.7 F 84 7 102/71 100 04/25/19 11:01 97.7 F 84 15 100 04/25/19 11:00 97.7 F 90 18 113/69 99 04/25/19 10:30 97.7 F 97 13 114/63 98 04/25/19 10:29 97.7 F 104 12 117/79 99 04/25/19 10:00 97.9 F 101 18 96 04/25/19 09:30 97.9 F 107 12 101/66 97 04/25/19 09:01 97.7 F 100 15 100 04/25/19 09:00 97.7 F 95 9 103/68 99 04/25/19 08:30 97.7 F 93 9 117/76 99 04/25/19 08:11 97.5 F 95 12 120/69 98 04/25/19 08:01 97.5 F 89 18 98 04/25/19 08:00 97.5 F 93 21 90/58 99 04/25/19 07:30 97.3 F 116 16 102/69 97 03/20/20 07:01 97.3 F 100 9 99 20 07:00 97.3 F 102 10 90/69 98 20 06:41 23 04/25/19 06:30 97.2 F 111 10 116/65 97 04/24/20 06:01 97.2 F 145 21 98 20 06:00 97.2 F 93 13 109/68 97 20 05:30 97.0 F 94 9 100/70 98 20 05:01 97.0 F 87 9 99 20 05:00 97.0 F 104 12 107/76 100 20 04:30 96.8 F 98 8 116/70 100 20 04:01 96.8 F 91 7 100 20 04:00 96.8 F 87 4 93/54 100 20 03:30 96.6 F 83 9 95/57 100 20 03:01 96.6 F 79 7 100 04/25/19 03:00 96.6 F 75 8 98/65 100 20 02:30 96.1 F 86 10 117/69 100 20 02:01 89 8 100 20 02:00 88 15 119/79 99 20 01:30 87 13 117/73 98 20 01:01 76 10 100 20 01:00 77 10 102/70 100 20 00:30 80 10 94/57 99 General: frail appearing female in no acute distress. She is resting comfortable and complaints of mild shoulder pain. Head: normocephalic, without obvious abnormality Eyes: conjunctivae/corneas clear Neck: restricted neck movement due to degenerative disc disease. no carotid bruits Lungs: clear to auscultation bilaterally, non-labored CV: irregular rate and rhythm Extremities: toe amputations. Flat feet Skin: no skin lesions or lacerations Psych: affect-broad and normal mood. Easy to establish rapport. Neurological examination: Mental status: awake; alert and oriented to person, place, and time. She has word finding difficulty and cannot comprehend complex commands. She has paraphasia when reading the sentences. She has no trouble naming but difficulty with repeating. Cranial nerves: I: not tested II, III, IV, : normal confrontation B/L, Pupils midrange and reactive to light , normal consensual response; extraocular muscles are intact; no ptosis; no conjugate or asymmetrical nystagmus V 1/2/3: sensation is intact on forehead, cheeks, and jaw region VII: no facial droop; facial symmetry while smiling & wrinkling of forehead; tight lid closure VIII: able to hear throughout the history process IX & X: symmetric palatal elevation XI: normal strength against resistance XII: tongue is symmetrical & midline with no atrophy or fasciculations Motor (R/L): no abnormal movements, minimal drift of the upper extremities bilaterally. Increase tone in the lower extremity. Atrophy of the FDI bilaterally. No fasciculations. Neck extension 5. Shoulder ROM is full. Shoulder abduction 4/4. Elbow flexion 5/5, extension 4/4. I compared this to Dr. Connolly's last exam in clinic and it was similar. Wrist flexion 5/5, extension 5/5. Finger abduction 4/4. Hip flexion 4/4. Knee flexion 5/5, extension 5/5. Ankle dorsiflexion 5/5. Left to right disorientation. Reflexes R L Brachioradialis 1+ 2+ Biceps 1+ 3+ Triceps 2+ 3+ Patella 3+ 3+ Ankle 1+ 1+ Plantar flexor flexor Sensation is intact to light touch throughout. Tactile extinction on the right. Coordination: normal finger to nose and rapid alternating movements. Gait & Station:deferred Assessment: Ms. Perry is a 79-year-old female who has atrial flutter who is on chronic Xarelto therapy who [place] [facility] [place] abdominal pain and fevers on 2019. She was found to have severe septic shock due to choledocholithiasis and was placed on Cefepime, pressors, and is s/p ERCP on 04/24/2019. The patient was a code beard today for new onset aphasia and confusion. The patient's neurological examination is predominately notable for mixed aphasia, [id number] disorientation, and tactile extinction on the right. 1. Suspect acute embolic stroke in the setting of atrial fibrillation/flutter- off anticoagulation therapy. Other mechanism of stroke include watershed stroke in the MCA-E[employer] MOT[employer] SALESPERSON distribution related to hypoperfusion in the setting of hypotension. The patient was not a candidate for alteplase therapy due to: unclear last known well time and elevated aPTT. I discussed this in detail with Dr. Pittman (son) who agreed not to proceed with alteplase therapy given the uncertainty of not knowing the exact last known well time. I also discussed this with the patient's son-in-law who is a neurosurgeon in [place]. After reviewing the data, labs, and general clinical course, the family, including the patient all agreed with proceeding without alteplase therapy, which the patient would not be a candidate for in the first place. We did not assess for large vessel occlusion given the low NIHSS (<6), poor kidney function, and she would not be a candidate for endovascular therapy since her mRS is 3-4. Other stroke mimicks include Cefepime induced neurotoxicity or seizures. These are low on the differential but considered if her MRI brain is negative. 2. Severe cervical spinal stenosis with compression. 3. Sepsis Recommendations: - Please make sure her SBP stays between 120-<160 mmHg. Use pressors if needed , Fadi-Synephrine preferred than Levophed. - IV hydration to maintain adequate cerebral perfusion - Aspirin 325 mg now and resume anticoagulation therapy if not contraindicated from the surgical standpoint. Please consult with surgery before starting her on anticoagulation. - PT/OT/DISASTER RECOVERY SPECIALIST evaluation and treatment - TTE with bubble study - MRI brain without contrast, MRA head and neck without contrast. We would need to hold anticoagulation therapy if she has a large infarction (low suspicion). - DVT Prophylaxis: restart Xarelto once - Stroke education completed - Consider soft cervical collar due to her history of severe spinal stenosis in the cervical spine Neurology will continue to follow. Discussed the above recommendations with the primary team. Dannie Juarez MD Date: 04/25/2019 Time: 13:27
[2019-04-25] MEDS: Lactated Ringers 1000 ML Bag* 1,000 ML IV SCH ×2 (13:15→23:20)
[2019-04-25] MEDS: cefTRIAXone(*) 2 GM in NS 0.9% 100 ML* 100 ML IVPB SCH (15:04)
[2019-04-25] MEDS: Aspirin 81 mg CHEW TAB* 81 MG TAB.CHEW PO SCH (15:21)
--- NOTE | 2019-04-25 15:22 | PN ---
<Tegan Whaley - Last Filed: 04/25/19 15:02> Date of Service: 04/25/19 Critical Care Services: Overnight events, Patient was sent back after ERCP due to drowsiness. She was noted to be off her baseline, keep repeating answer around 930am, physical examination showed mixed expressive and receptive dyphasia, left sided weakness and left hypereflexia. Thus a cold beard was initiated. Decision made not for TPA as out of window also APTT elevated. Please refer to neurology note for more details. Patient is alert, talking in full sentence, but didn't answer questions appropriately. She knows that she is in hospital, but when asked why you were in hospital, she would repeat "I am in hospital" again and again. Also noted she had some word finding difficulty. She is left hand dorminant. Tele: Afib with heart rate 80-100, SBP around 100-120mmhg InO2 for comfort Vital Signs: Temp Pulse Resp BP SpO2 FiO2 97.9 F 87 7 118/72 100 04/25/19 14:30 04/25/19 14:30 04/25/19 14:30 04/25/19 14:30 04/25/19 14:30 Physical Exam: General: cachetic looking, skinny, NAD HEENT: Normocephalic, atraumatic, non-icteric sclera, mucosa moist. Neck: soft, supple, no JVD CV : irregular rhythm, rate in 80-90s. no murmurs or rubs Pulm/Chest: clear on auscultation Abdomen/GI: distended, soft, RLQ tenderness on palpation MSK/Skin: warm, dry, intact, +2 pulses+, no edema or cyanosis Extremity: scaly erythematous papules on all extremities and some parts of trunk - chronic Neuro: alert, oriented to place, person, not time (needs to ask orientation questions repeatedly to get it right) Mild left facial droop, other cranial nerve intact left pronator drift strength: both side 4, but left worse than right left side hyperreflexia Babinski negative bilaterally Fluid Balance (Past 24 Hours): U=3169 O= 1405 Net= 383 Intake & Output 04/23/19 04/24/19 04/25/19 04/26/19 06:59 06:59 06:59 06:59 Intake Total 3545.0 2581 1788 Output Total 1269 916 0800 235 Balance 2283.0 2246 383 -235 Weight 39.599 kg 39.418 kg 40.053 kg Intake: IV Fluids 2263 1811 1492 ABX - CEFEPIME 60 ABX - FLAGYL 109 10 LR 1964 1682 1435 NS (0.9%) 130 69 57 Vitamin K 50 IVPB 284 151 176 ABX - CEFEPIME 65 67 ABX - FLAGYL 219 100 109 NS (0.9%) 51 Medicated IV 518.0 19 Levophed 418 Neosynephrine 100.0 19 Oral 480 600 120 Output: Urine 0 175 Maurer 1262 335 680 235 Residual 550 Maurer 16 Fr Temperature 550 Probe Other: Estimated Void Small # Bowel Movements 1 Estimated Stool Amount Small # Voids 1 Labs: Laboratory Results - last 24 hr 04/25/19 04/25/19 04/25/19 02:25 06:10 06:10 WBC 26.5 H RBC 3.36 L Hgb 10.5 L Hct 32 L MCV 94 MCH 31 MCHC 33 RDW 16 H Plt Count 118 L MPV 9.7 Neut % (Auto) 95.9 Lymph % (Auto) 2.1 [place] % (Auto) 1.8 Eos % (Auto) 0.0 Baso % (Auto) 0.2 Absolute Neuts (auto) 25.4 H Absolute Lymphs (auto) 0.6 L Absolute Monos (auto) 0.5 Absolute Eos (auto) 0.0 Absolute Basos (auto) 0.0 Absolute Nucleated RBC 0.0 Nucleated RBC % 0.0 Sodium 142 Potassium 4.7 Chloride 119 H Carbon Dioxide 14 L* Anion Gap 9 BUN 60 H Creatinine 1.46 H Est GFR ( Amer) 41.8 Est GFR (Non-Af Amer) 34.6 BUN/Creatinine Ratio 41.1 H Glucose 118 H POC Glucose (mg/dL) Calcium 8.5 L Phosphorus 4.7 Magnesium 1.6 L Total Bilirubin 1.60 H AST 43 H ALT 67 H Alkaline Phosphatase 167 H Total Protein 4.9 L Albumin 2.7 L Globulin 2.2 Albumin/Globulin Ratio 1.2 Urine Color Ju[place] Urine Appearance Clear Urine pH 5.0 Ur Specific [place] 1.015 Urine Protein Negative Urine Ketones Negative Urine Blood Negative Urine Nitrate Negative Urine Bilirubin Negative Urine Urobilinogen Negative Ur Leukocyte Esterase Negative Urine Glucose Negative Urine Ascorbic Acid * A 04/25/19 10:04 WBC RBC Hgb Hct MCV MCH MCHC RDW Plt Count MPV Neut % (Auto) Lymph % (Auto) [place] % (Auto) Eos % (Auto) Baso % (Auto) Absolute Neuts (auto) Absolute Lymphs (auto) Absolute Monos (auto) Absolute Eos (auto) Absolute Basos (auto) Absolute Nucleated RBC Nucleated RBC % Sodium Potassium Chloride Carbon Dioxide Anion Gap BUN Creatinine Est GFR ( Amer) Est GFR (Non-Af Amer) BUN/Creatinine Ratio Glucose POC Glucose (mg/dL) 128 H Calcium Phosphorus Magnesium Total Bilirubin AST ALT Alkaline Phosphatase Total Protein Albumin Globulin Albumin/Globulin Ratio Urine Color Urine Appearance Urine pH Ur Specific [place] Urine Protein Urine Ketones Urine Blood Urine Nitrate Urine Bilirubin Urine Urobilinogen Ur Leukocyte Esterase Urine Glucose Urine Ascorbic Acid Nutrition: Bedside Swallowing evaluation failed, will get speech therapist for swallowing eval Impression: 70 yo female with history of Melanoma, Crohns disease on chronic pred 5mg daily , arthritis, GERD, HTN, Atrial flutter, urinary retention, presented to [facility] for lethargy and weakness for a few days before sending to hospital. She was found to be in severe sepsis with significant hypotension requiring presser, and lactic acidosis, she was also found to have choledocholithiasis, with cholelithiasis and dilated pancreatic duct, which is the likely source of infection. 1. Septic shock - E.coli and Klebsiella Variicola bacteremia, due to chledochlithiasis and ascending cholangitis likely, superimposing UTI as well 2. New dysphasia and left sided weakness likely stroke, out of tpa window. diff cervical myelopathy 3. Metabolic acidosis 4. Tachycardia likely appropriate to her sepsis, b/g AFib/flutter- resolving 5. HERLINDA due to sepsis and dehydration 6. Transaminitis 7. Crohn's disease stable s/p two bowel resection, on chronic steroid 8. Melanoma- patient denied the history though documented in H&P 9. Urinary retention on Maurer, changed after admission 10. Neuropathy 11. GERD 12. HTN 13. non obstructing renal calculi and 2mm ureter calculi (right side) with mild hydronephrosis Plan: Neuro- baseline: living independently, managing her own life well - new confusion, dysphasia, left sided weakness, likely stroke, CTA neg, awaiting MRI - decision made not for TPA as 1) APTT elevated 2) probably out of time window 3 ) son not keen - discussed with GI and Neuro, decision made to start aspirin today, aim to restart anticoagulation if she stable 24 hours after ERCP. - keep permissive hypertension, iv LR 150ml/h for now, goal BP 160-180mmhg - neuro check Q4h, swallowing evaluation CVS- - BP stable - iv metoprolol if HR>130 - Echocardiogram 04/21 normal LV function - Afib/flutter, rate controlled, will start anticoag earliest possible Resp-no active issues ID- - E.coli and klebsiella bacteremia from blood cs, klebsilla from urine cs - likely source is hepatobillary, cholangitis, choledocholithiasis likely, possible superimposing UTI - ERCP 04/23: common bile duct stones 3 delivered, 1 defiant stone still present in distal duct - change to iv ceftriaxone based on sensitivity profile, cefepime (04/20-) - concerning ureter stone with hydronephrosis in initial CT scan, will repeat US renal to reassess today - plan for ceftriaxone 2 weeks now - repeat blood cs since afebrile >48 hours GI- - further cholecystectomy will be needed in the future, but will hold off due to multiple events during hospitalization - Crohn disease: stable disease, on home dose pred 5mg - was on hydrocort stress dose initially, will decrease to her home dose - GI prophylaxis : IV PPI daily Renal- -strict I/O, replete to keep K>4, Mg>2 -maurer as indicated for I/O monitoring purpose -hypercholeremic metabolc acidosis due to NS overuse. will continue to watch, no acute intervention for now Heme - Xarelto reversal: last dose 04/20, reveresed by [facility] - new stroke, started aspirin today, watch Hb closely Endo-Maintain BG<200, glucose monitoring Q4h during fasting. Musculsk- sit out of bed if possible Wounds- bilateral LL extremities scaly and erythematous rashes. Nutrition- NPO DVT prophylaxis: hold off, start aspirin for stroke first GI prophylaxis: iv pantoprazole Central Line:no Arterial Line:no Maurer Cathetor: D5 for urinary retention Disposition: Patient requires Critical Care/ICU for severe sepsis and new stroke Patient clinical status: stable Code Status: full code <Sourav,Nat - Last Filed: 04/25/19 19:19> Vital Signs: Temp Pulse Resp BP SpO2 FiO2 98.1 F 93 21 91/82 100 04/25/19 16:01 04/25/19 18:01 04/25/19 18:12 04/25/19 18:00 04/25/19 18:01 Physical Exam: Gen: HEENT: Lungs: Cardiac: Abdomen: Extremities: Neuro: Fluid Balance (Past 24 Hours): I= O= Net Intake & Output 04/23/19 04/24/19 04/25/19 04/26/19 06:59 06:59 06:59 06:59 Intake Total 3545.0 2581 1788 853 Output Total 2391 001 3342 235 Balance 2283.0 2246 383 618 Weight 87 lb 4.8 oz 86 lb 14.417 oz 88 lb 4.828 oz 88 lb 4.828 oz Intake: IV Fluids 2263 1811 1492 27 ABX - CEFEPIME 60 ABX - FLAGYL 109 10 27 LR 1964 1682 1435 NS (0.9%) 130 69 57 Vitamin K 50 IVPB 284 151 176 826 ABX - CEFEPIME 65 67 ABX - FLAGYL 219 100 109 110 LR 716 NS (0.9%) 51 Medicated IV 518.0 19 Levophed 418 Neosynephrine 100.0 19 Oral 480 600 120 Output: Urine 0 175 Maurer 1262 335 680 235 Residual 550 Maurer 16 Fr Temperature 550 Probe Other: Estimated Void Small # Bowel Movements 1 Estimated Stool Amount Small # Voids 1 Labs: Laboratory Results - last 24 hr 04/25/19 04/25/19 04/25/19 02:25 06:10 06:10 WBC 26.5 H RBC 3.36 L Hgb 10.5 L Hct 32 L MCV 94 MCH 31 MCHC 33 RDW 16 H Plt Count 118 L MPV 9.7 Neut % (Auto) 95.9 Lymph % (Auto) 2.1 [place] % (Auto) 1.8 Eos % (Auto) 0.0 Baso % (Auto) 0.2 Absolute Neuts (auto) 25.4 H Absolute Lymphs (auto) 0.6 L Absolute Monos (auto) 0.5 Absolute Eos (auto) 0.0 Absolute Basos (auto) 0.0 Absolute Nucleated RBC 0.0 Nucleated RBC % 0.0 Sodium 142 Potassium 4.7 Chloride 119 H Carbon Dioxide 14 L* Anion Gap 9 BUN 60 H Creatinine 1.46 H Est GFR ( Amer) 41.8 Est GFR (Non-Af Amer) 34.6 BUN/Creatinine Ratio 41.1 H Glucose 118 H POC Glucose (mg/dL) Calcium 8.5 L Phosphorus 4.7 Magnesium 1.6 L Total Bilirubin 1.60 H AST 43 H ALT 67 H Alkaline Phosphatase 167 H Ammonia Troponin I Total Protein 4.9 L Albumin 2.7 L Globulin 2.2 Albumin/Globulin Ratio 1.2 Vitamin B12 > 1450 H TSH 2.31 Urine Color Ju[place] Urine Appearance Clear Urine pH 5.0 Ur Specific [place] 1.015 Urine Protein Negative Urine Ketones Negative Urine Blood Negative Urine Nitrate Negative Urine Bilirubin Negative Urine Urobilinogen Negative Ur Leukocyte Esterase Negative Urine Glucose Negative Urine Ascorbic Acid * A 04/25/19 04/25/19 04/25/19 10:04 17:27 17:27 WBC RBC Hgb Hct MCV MCH MCHC RDW Plt Count MPV Neut % (Auto) Lymph % (Auto) [place] % (Auto) Eos % (Auto) Baso % (Auto) Absolute Neuts (auto) Absolute Lymphs (auto) Absolute Monos (auto) Absolute Eos (auto) Absolute Basos (auto) Absolute Nucleated RBC Nucleated RBC % Sodium 143 Potassium 4.5 Chloride 120 H Carbon Dioxide 14 L* Anion Gap 9 BUN 59 H Creatinine 1.51 H Est GFR ( Amer) 40.2 Est GFR (Non-Af Amer) 33.2 BUN/Creatinine Ratio 39.1 H Glucose 116 H POC Glucose (mg/dL) 128 H Calcium 8.4 L Phosphorus Magnesium Total Bilirubin AST ALT Alkaline Phosphatase Ammonia 58 H Troponin I 0.06 H* Total Protein Albumin Globulin Albumin/Globulin Ratio Vitamin B12 TSH Urine Color Urine Appearance Urine pH Ur Specific [place] Urine Protein Urine Ketones Urine Blood Urine Nitrate Urine Bilirubin Urine Urobilinogen Ur Leukocyte Esterase Urine Glucose Urine Ascorbic Acid 04/25/19 17:27 WBC 24.5 H RBC 3.57 L Hgb 11.0 L Hct 34 L MCV 94 MCH 31 MCHC 33 RDW 16 H Plt Count 118 L MPV 9.6 Neut % (Auto) 95.2 Lymph % (Auto) 2.4 [place] % (Auto) 2.3 Eos % (Auto) 0.0 Baso % (Auto) 0.1 Absolute Neuts (auto) 23.3 H Absolute Lymphs (auto) 0.6 L Absolute Monos (auto) 0.6 Absolute Eos (auto) 0.0 Absolute Basos (auto) 0.0 Absolute Nucleated RBC 0.0 Nucleated RBC % 0.1 Sodium Potassium Chloride Carbon Dioxide Anion Gap BUN Creatinine Est GFR ( Amer) Est GFR (Non-Af Amer) BUN/Creatinine Ratio Glucose POC Glucose (mg/dL) Calcium Phosphorus Magnesium Total Bilirubin AST ALT Alkaline Phosphatase Ammonia Troponin I Total Protein Albumin Globulin Albumin/Globulin Ratio Vitamin B12 TSH Urine Color Urine Appearance Urine pH Ur Specific [place] Urine Protein Urine Ketones Urine Blood Urine Nitrate Urine Bilirubin Urine Urobilinogen Ur Leukocyte Esterase Urine Glucose Urine Ascorbic Acid Plan: Attending physician attestation: Pt seen and examined at bedside with resident Dr Whaley. PLan of care was discussed. Agree with above exam and assessment. Pt had neurological changes this am, code bautista was called, CT brain showed no acute abnormality. Pt was not deemed to be candidate for tPA. Pt was taken to MRI, c/o chest pain, was brought back to floor, EKG showed no acute changes. Troponins slightly positive. Pt started on ASA. Lovenox will be started tomorrow. Pt also being treated for sepsis, BP around 100 systolic. Will start on pressors to maintain pressure higher, with goal BP of 130 systolic. Will c/w abx for cholecystitis. GI following. Rpt abd U/S showed no hydronephrosis. Will need current management in ICU Critical Care Time: 30 min
[2019-04-25 16:33] LABS: TSH (Thyroid Stimulating Horm) 2.31 mcIU/mL (0.34-5.60)
[2019-04-25] MEDS ORDERED: HYDROmorphone INJ* 0.5 MG/0.5 ML SYRINGE IV ONE (16:58)
--- NOTE | 2019-04-25 17:07 | EEG ---
ELECTROENCEPHALOGRAPHY: DATE OF STUDY: 04/25/19 DATE READ: 04/25/19 ORDERED BY: Dr. Whaley. CLINICAL PROBLEM: Mrs. Perry is a 79-year-old female with septic shock who had an persistent episode of word finding difficulty and confusion. The patient is on cefepime. MEDICATIONS: Other medications that she is currently taking are: 1. Lopressor. 2. Neurontin. 3. Colace. 4. Flagyl. 5. Prednisone. 6. MiraLAX. 7. Roxicodone. 8. Lovenox. DURATION OF THE [id number]. CLINICAL STATE: Awake. REPORT: The background lacked organization or clearly defined anterior- posterior voltage and frequency gradients. There was no discernable posterior dominant rhythm. Instead, the background consisted of a diffuse, high amplitude , sharply contoured delta and theta range slowing. Throughout the recording, there were abundance of delta slowing that became sharply contoured and took on a triphasic morphology. This was most prominent in the frontal region and accentuated during wakefulness. The max frequency of these triphasic waves was approximately 1.5 to 2 hertz. Hyperventilation and photic stimulation were not performed. EKG showed irregular rhythm and irregular rate. CLINICAL IMPRESSION: This is an abnormal EEG due to the presence of diffuse slowing with abundance of triphasic waves. These findings are suggestive of a nonspecific [id number] diffuse encephalopathy with triphasic waves seen particularly with cefepime therapy or metabolic encephalopathy. [id number]/[facility] #: [id number] MTDD
[2019-04-25 17:36] LABS: Hematocrit 34 % (35-47); Mean Corpuscular HGB Conc 33 g/dL (31-36); Mean Corpuscular Hemoglobin 31 pg (27-31); Mean Corpuscular Volume 94 fL (80-97); Mean Platelet Volume 9.6 fL (7.4-10.4); Platelet Count 118 10^3/uL (150-450); Red Blood Count 3.57 10^6 /uL (3.70-4.87); Red Cell Distribution Width 16 % (10-15); White Blood Count 24.5 10^3/uL (3.5-10.8)
--- NOTE | 2019-04-25 17:48 | PN ---
Progress Note - Progress Note Date of Service: 04/25/19 Note: GI Follow up Patient seen and examined, 24 hour events noted. Admits to some discomfort today in abdomen, no bm. Discussed with RN- no melena or hematochezia. Possible neurologic event this AM, neuro following, aspirin started VS: 118/77, P-89, R- 18, T-98.1 Gen: arousable, c-collar in place CVS: RRR s1s2 Resp: diminished at base Abd: soft, mild distention. bs+ hypoactive Ext: extensive bruising Lab: Hgb 10.5->11 WBC 26->24.5 Cr 1.4 Bili 1.6 AST 43, ALT 67, AlkP 162 Impression: Cholangitis s/p Sphincterotomy ERCP drainage with stone removal (except 1 persistent stone not able to be removed) and 7F drain left in place Cholelithiasis Rec: LFTs and bili improving. Mild abd pain today, will check KUB, suspect constipation and will need bowel regimen via primary team Given neurological event, agree with aspirin today If needed on 04/25 if hgb stable and LFTs/bili improving ok to restart anticoag Will need outpatient follow up with Dr. Lima to discuss further Rx of stones Pending clinical improvement would need evaluation for cholecystectomy prior to d/c Guanaco Martin DO 04/25/19 [id number]
[2019-04-25 18:00] LABS: ABS Lymphocytes 0.6 10^3/ul (1.0-4.8); ABS Monocytes 0.6 10^3/ul (0-0.8); ABS Neutrophils 23.3 10^3/ul (1.5-7.7); Lymphocyte % 2.4 %; Nucleated Red Blood Cells % 0.1
[2019-04-25] MEDS ORDERED: Lactated Ringers 1000 ML Bag* 1,000 ML IV SCH (18:00)
[2019-04-25 18:01] LABS: BUN/Creatinine Ratio 39.1 (8-20); Blood Urea Nitrogen 59 mg/dL (6-24); Calcium 8.4 mg/dL (8.6-10.3); EGFR African American 40.2 (>60); EGFR Non-African American 33.2 (>60); Glucose 116 mg/dL (70-100); Potassium 4.5 mmol/L (3.5-5.0); Sodium 143 mmol/L (135-145)
[2019-04-25 18:05] LABS: Anion Gap 9 mmol/L (2-11); CO2 Carbon Dioxide 14 mmol/L (22-32); Chloride 120 mmol/L (101-111); Troponin I 0.06 ng/mL (<0.03)
[2019-04-25] MEDS ORDERED: Phenylephrine 10 MG/ML VIAL* 50 MG in NS 0.9% 250 ML* 245 ML IV SCH ×2 (19:00→20:20)
[2019-04-25] MEDS: HYDROmorphone INJ* 0.5 MG/0.5 ML SYRINGE IV SLOW PU PRN (20:34)
[2019-04-26 00:18] LABS: Troponin I 0.06 ng/mL (<0.03)
[2019-04-26 03:59] LABS: Hematocrit 34 % (35-47); Hemoglobin 11.1 g/dL (12.0-16.0); Mean Corpuscular HGB Conc 33 g/dL (31-36); Mean Corpuscular Hemoglobin 31 pg (27-31); Mean Corpuscular Volume 95 fL (80-97); Mean Platelet Volume 9.7 fL (7.4-10.4); Platelet Count 138 10^3/uL (150-450); Red Blood Count 3.57 10^6 /uL (3.70-4.87); Red Cell Distribution Width 16 % (10-15); White Blood Count 30.4 10^3/uL (3.5-10.8)
[2019-04-26 04:15] LABS: ALT 61 U/L (7-52); AST 40 U/L (13-39); Albumin 2.8 g/dL (3.2-5.2); Albumin/Globulin Ratio 1.3 (1-3); Alkaline Phosphatase 198 U/L (34-104); Anion Gap 8 mmol/L (2-11); BUN/Creatinine Ratio 37.7 (8-20); Blood Urea Nitrogen 57 mg/dL (6-24); CO2 Carbon Dioxide 16 mmol/L (22-32); Calcium 8.7 mg/dL (8.6-10.3); Chloride 118 mmol/L (101-111); EGFR African American 40.2 (>60); EGFR Non-African American 33.2 (>60); Globulin 2.2 g/dL (2-4); Glucose 120 mg/dL (70-100); Magnesium 1.6 mg/dL (1.9-2.7); Potassium 4.5 mmol/L (3.5-5.0); Sodium 142 mmol/L (135-145)
[2019-04-26 04:31] LABS: ABS Basophils 0.1 10^3/ul (0-0.2); ABS Lymphocytes 0.6 10^3/ul (1.0-4.8); ABS Monocytes 0.9 10^3/ul (0-0.8); ABS Neutrophils 28.8 10^3/ul (1.5-7.7); ABS Nucleated RBC 0.1 10^3/ul; Lymphocyte % 2.1 %; Nucleated Red Blood Cells % 0.3
[2019-04-26 04:33] LABS: Troponin I 0.11 ng/mL (<0.03)
[2019-04-26] MEDS: HYDROmorphone INJ* 0.5 MG/0.5 ML SYRINGE IV SLOW PU PRN (04:53)
[2019-04-26] MEDS: Lactated Ringers 1000 ML Bag* 1,000 ML IV SCH (06:01)
--- NOTE | 2019-04-26 07:07 | PN ---
Progress Note - Progress Note Date of Service: 04/26/19 SOAP: I reviewed the results of the MRI. The image is motion degraded so small embolic strokes cannot be entirely excluded, but my suspicion for stroke is low. Most importantly, she does not have large vessel occlusion or large infarction. The EEG obtained yesterday had abundance of triphasic waves which is typically seen in a metabolic encephalopathy or Cefepime neurotoxicity. Both are stroke mimickers. Recommendations: Continue supportive care. Start anticoagulation therapy when cleared by surgery. Discontinue aspirin once Xarelto is restarted. Keep a systolic BP within normal range. Permissive hypertension is not necessary now since she doesn't have a large infarction. Wean off phenylephrine. I called the patient's son this morning to share the MRI results but there was no response. I left a message with a call back number. Please call me for any questions.
[2019-04-26] MEDS ORDERED: Phenylephrine 10 MG/ML VIAL* 50 MG in NS 0.9% 250 ML* 245 ML IV SCH ×2 (09:32→17:42)
[2019-04-26] MEDS ORDERED: Acetaminophen TAB* 325 MG PO PRN (09:37)
[2019-04-26] MEDS ORDERED: Sodium Bicarbonate 8.4% IV* 75 MEQ in NS 0.45% 1000 ML BAG* 1,000 ML IV ONE (09:45)
[2019-04-26] MEDS ORDERED: HYDROmorphone INJ* 0.5 MG/0.5 ML SYRINGE IV ONE (10:31)
[2019-04-26] MEDS ORDERED: HYDROmorphone INJ* 0.5 MG/0.5 ML SYRINGE ONE (10:32)
[2019-04-26] MEDS: Docusate CAP* 100 MG PO SCH (11:07)
[2019-04-26] MEDS: Gabapentin CAP(*) 300 MG PO SCH (11:07)
[2019-04-26] MEDS: Pyridoxine TAB* 50 MG PO SCH (11:16)
[2019-04-26] MEDS: Cholecalciferol TAB* 1000 UNITS PO SCH (11:16)
[2019-04-26] MEDS: Senna TAB 8.6 mg* TAB PO SCH (11:16)
[2019-04-26] MEDS: Pantoprazole IV* 40 MG IV SCH (11:16)
[2019-04-26] MEDS: Cyanocobalamin TAB* 500 MCG PO SCH (11:17)
[2019-04-26] MEDS: Metoprolol Tartrate TAB* 25 MG PO SCH (11:17)
[2019-04-26] MEDS: Ascorbic Acid TAB* 500 MG PO SCH (11:17)
[2019-04-26] MEDS: Aspirin 81 mg CHEW TAB* 81 MG TAB.CHEW PO SCH (11:17)
[2019-04-26] MEDS ORDERED: LORazepam INJ* 2 MG/ML 1 ML VIAL IV PUSH ONE ×2 (13:24→14:00)
[2019-04-26] MEDS ORDERED: Lorazepam PYXIS KEY PRN ×2 (13:24→13:55)
[2019-04-26] MEDS ORDERED: Lorazepam PYXIS KEY ONE (13:25)
[2019-04-26] MEDS ORDERED: LORazepam INJ* 2 MG/ML 1 ML VIAL ONE (13:25)
--- NOTE | 2019-04-26 13:57 | PN ---
Subjective Date of Service: 04/26/19 Length of Stay: 5 Days Neurology is following for encephalopathy. Interval History: Ms. Perry had worsening of her cognition overnight. She is having trouble staying awake. There was minor myoclonus jerks of the face when she was sleeping. She easily arouses and answers questions for a brief seconds, then she goes back to sleep. She requested to remove the soft cervical collar. I took it off her for now. There has been no reported seizure activity. A test trial of Ativan was done at bedside today to see if her mentation would improve. She went to sleep and had desaturation in the high 80's after 1 mg of Ativan. We placed her on a nasal cannula and her oxygenation improved with sats in the low 90's. She did not have a clinical response. I reviewed the results of the MRI. The image is motion degraded so small embolic strokes cannot be entirely excluded, but my suspicion for stroke is low. Most importantly, she does not have large vessel occlusion or large infarction. The EEG obtained yesterday had abundance of triphasic waves which is typically seen in metabolic encephalopathy or Cefepime neurotoxicity. Both are stroke mimickers. Events that took place last night and this morning were reviewed. The patient was complaining of chest pain. The team is working her up for ACS. She also had a repeat CT head without contrast today that showed no evidence of acute stroke or hemorrhage. Labs: TSH: 2.31 B12: >1450 Ammonia: 58 BUN: 57 Creatinine: 1.51 Review of Systems: Denied CP. Objective Active Medications: Acetaminophen (Tylenol Tab*) 650 mg PO Q6H PRN PRN Reason: PAIN - MILD Last Admin: 04/26/19 11:27 Dose: 650 mg Ascorbic Acid (Vitamin C Tab*) 500 mg PO QAM [facility] Last Admin: 04/26/19 11:17 Dose: 500 mg Aspirin (Aspirin 81 Mg Chew Tab*) 81 mg PO DAILY [facility] Last Admin: 04/26/19 11:17 Dose: 81 mg Cholecalciferol (Vitamin D Tab*) 1,000 units PO QAM [facility] Last Admin: 04/26/19 11:16 Dose: 1,000 units Cyanocobalamin (Vitamin B12 Tab*) 1,000 mcg PO DAILY [facility] Last Admin: 04/26/19 11:17 Dose: 1,000 mcg Gabapentin (Neurontin Cap(*)) 100 mg PO BID [facility] Ceftriaxone Sodium 2 gm/ (Sodium Chloride) 100 mls @ 200 mls/hr IVPB Q24H [facility] Last Admin: 04/25/19 15:04 Dose: 200 mls/hr Sodium Bicarbonate 75 meq/ (Sodium Chloride) 1,075 mls @ 75 mls/hr IV ONCE ONE Stop: 04/27/19 00:04 Last Admin: 04/26/19 11:03 Dose: 75 mls/hr Phenylephrine HCl 50 mg/ (Sodium Chloride) 250 mls @ 15 mls/hr IV .PER PROTOCOL [facility]; Protocol Last Admin: 04/26/19 12:53 Dose: 43.5 mls/hr Magnesium Hydroxide (Milk Of Magnesia Liq*) 30 ml PO Q2H PRN PRN Reason: CONSTIPATION Last Admin: 04/23/19 23:37 Dose: 30 ml Metoprolol Tartrate (Lopressor Iv*) 5 mg IV Q6H PRN PRN Reason: HEART RATE/PULSE GREATER THAN: Last Admin: 04/23/19 23:37 Dose: 5 mg Metoprolol Tartrate (Lopressor Tab*) 12.5 mg PO Q12HR [facility] Last Admin: 04/26/19 11:17 Dose: 12.5 mg Miscellaneous (Ativan Pyxis Hassan) 1 ea N/A .ATIVAN IV HASSAN PRN PRN Reason: PYXIS HASSAN Ondansetron HCl (Zofran Inj*) 4 mg IV Q6H PRN PRN Reason: NAUSEA Pantoprazole Sodium (Protonix Iv*) 40 mg IV DAILY [facility] Last Admin: 04/26/19 11:16 Dose: 40 mg Polyethylene Glycol/Electrolytes (Miralax (17 Gm Dose Sam)) 17 gm PO DAILY PRN PRN Reason: CONSTIPATION Last Admin: 04/23/19 17:25 Dose: 17 gm Prednisone (Deltasone 5 Mg Tab) 5 mg PO MOWEFR [facility] Last Admin: 04/25/19 08:58 Dose: 5 mg Pyridoxine HCl (Vitamin B6 Tab*) 50 mg PO DAILY [facility] Last Admin: 04/26/19 11:16 Dose: 50 mg Senna (Senokot 8.6 Mg Tab*) 2 tab PO BID [facility] Last Admin: 04/26/19 11:16 Dose: 2 tab Vital Signs 04/26/19 04/26/19 11:46 12:00 Temperature 97.7 F Pulse Rate 95 98 Respiratory 16 19 Rate Blood Pressure 124/104 130/76 (mmHg) O2 Sat by Pulse 91 88 Oximetry Intake and Output Last 24 Hours 04/24/19 04/25/19 04/26/19 04/27/19 06:59 06:59 06:59 06:59 Intake Total 2581 1788 3883 787 Output Total 335 1405 460 Balance 2246 383 3423 787 Weight 86 lb 14.417 oz 88 lb 4.828 oz 109 lb 5.588 oz Intake: IV Fluids 1811 1492 2641 ABX - FLAGYL 10 27 LR 1682 1435 2584 NS (0.9%) 69 57 30 Vitamin K 50 IVPB 151 176 935 787 ABX - CEFEPIME 67 109 ABX - FLAGYL 100 109 110 LR 716 787 NS (0.9%) 51 Medicated IV 19 307 Neosynephrine 19 307 Oral 600 120 Output: Urine 0 175 [place] 335 680 460 Residual 550 [place] 16 Fr Temperature 550 Probe Other: Estimated Void Small # Bowel Movements 1 Estimated Stool Amount Small # Voids 1 Oxygen Devices in Use Now: Nasal Cannula Neurology Exam: General: Frail ill appearing elderly female in no distress. HEENT: Normocephelic/atraumatic, sclera anicteric, mucous membranes moist Neurological Findings: Drowsy appearing female who is laying in bed, opens her eyes briefly for a few seconds. She has intermittent inappropriate laughter. Dysarthric speech. Cranial Nerve: PERRL, EOM, no facial asymmetry Motor: moves the upper extremities spontaneously antigravity. Minimal movements of the legs. Sensation: intact to LT bilaterally upper and lower extremities Deep Tendon Reflex: 3 + throughout. Unable to participate with finger to nose or heal to garcia testing. She is unable to walk at this time. Result Diagrams: 04/26/19 03:48 04/26/19 03:48 Microbiology and Other Data: Microbiology 04/21/19 20:05 Aerobic Blood Culture - Final Blood Venous Klebsiella Variicola Escherichia Coli Anaerobic Blood Culture - Final Escherichia Coli Klebsiella Variicola 04/21/19 20:05 Aerobic Blood Culture - Final Blood Venous Escherichia Coli Klebsiella Variicola 04/21/19 22:43 Urine Culture - Final Urine Klebsiella Variicola 04/22/19 01:31 Nasal Screen MRSA (PCR) - Final Nasal Mrsa Not Detected Assessment/Plan Ms. Perry is a 79-year-old female who has history of cervical spondylosis with spinal cord compression, atrial fibrillation who was on Xarelto at home who presented to [facility] [place] with abdominal pain and fevers on 04/20. She was found to be in septic shock due to cholangitis s/p sphincterotomy ERCP drainage with stone removal. She was placed on Cefepime sin 04/20. This was discontinued yesterday on 04/24. The patient's son reported that the patient has not been communicating well and not back to her normal self since surgery on 04/24/2019. A code beard was activated yesterday as the patient was persevering and experiencing word finding difficulty. She was deemed not a candidate for alteplase therapy due to being outside the therapeutic window. The MRI obtained yesterday showed no evidence of acute stroke or LVO. She still appears encephalopathic and has trouble with aphasia and confusion. An EEG showed abundance of triphasic waves throughout the recording which correlates with an underlying toxic-metabolic encephalopathy related to the underlying infection and/or antibiotic therapy. An Ativan test to evaluate for nonconvulsant status epilepticus was performed at bedside today but the patient did not have a positive response. Instead she slept and became transiently hypoxic. This would argue against anti-seizure medications since she did not improve with benzodiazepine, and support the diagnosis of metabolic encephalopathy. Recommendations: - Continue supportive care - Agree with weaning off gabapentin - Minimize the use of benzodiazepines, narcotics, or anti-cholinergics - Neuro checks per unit protocol I did speak with the patient's son Dr. Bolaños today and updated him regarding the MRI results. Please call me for any questions or sudden change in her mentation
[2019-04-26] MEDS: cefTRIAXone(*) 2 GM in NS 0.9% 100 ML* 100 ML IVPB SCH (14:52)
[2019-04-26] MEDS ORDERED: Magnesium Sulf 4 GM/100 ML IV* 4,000 MG/100 ML BAG IVPB ONE (16:00)
[2019-04-26 16:46] LABS: Troponin I 0.39 ng/mL (<0.03)
[2019-04-26] MEDS ORDERED: Heparin VIAL(*) 5000 UNITS/ML VIAL (FIVE THOUSAND) IV PRN (17:58)
[2019-04-26] MEDS ORDERED: Heparin DRIP 25,000 UNITS(*) 25,000 UNITS/500 ML BAG IV SCH (18:00)
--- NOTE | 2019-04-26 18:37 | PN ---
<Connie Lundy - Last Filed: 04/26/19 17:53> Progress Note - Progress Note Date of Service: 04/26/19 Note: Progress Note -- Critical Care 24 hour events/significant events: ROS: ROS unable to be obtained secondary to altered mental status Tele: afib HR in 80's Vitals: Vital Signs 04/25/19 04/25/19 04/25/19 18:00 18:01 18:12 Temperature Pulse Rate 84 93 Respiratory 12 5 21 Rate Blood Pressure 91/82 (mmHg) O2 Sat by Pulse 100 100 Oximetry 04/25/19 04/25/19 04/25/19 18:15 19:00 19:05 Temperature Pulse Rate 96 103 88 Respiratory 17 28 28 Rate Blood Pressure 109/85 115/58 (mmHg) O2 Sat by Pulse 97 93 96 Oximetry 04/25/19 04/25/19 04/25/19 19:15 19:30 19:46 Temperature 97.7 F 97.7 F 97.7 F Pulse Rate 92 108 117 Respiratory 19 27 16 Rate Blood Pressure 126/77 140/83 138/64 (mmHg) O2 Sat by Pulse 100 100 100 Oximetry 04/25/19 04/25/19 04/25/19 20:00 20:16 20:20 Temperature 99.4 F 97.5 F 97.5 F Pulse Rate 110 137 108 Respiratory 9 23 31 Rate Blood Pressure 137/83 121/86 126/113 (mmHg) O2 Sat by Pulse 100 88 83 Oximetry 04/25/19 04/25/19 04/25/19 20:28 20:30 20:34 Temperature 97.5 F 97.5 F Pulse Rate 91 95 Respiratory 40 26 18 Rate Blood Pressure 123/100 102/88 (mmHg) O2 Sat by Pulse 95 91 Oximetry 04/25/19 04/25/19 04/25/19 21:00 21:30 21:35 Temperature 97.7 F 97.7 F Pulse Rate Respiratory 27 38 39 Rate Blood Pressure 120/94 (mmHg) O2 Sat by Pulse Oximetry 04/25/19 04/25/19 04/25/19 21:45 22:00 22:01 Temperature 97.7 F 97.7 F 97.7 F Pulse Rate Respiratory 54 32 40 Rate Blood Pressure 96/80 89/58 (mmHg) O2 Sat by Pulse Oximetry 04/25/19 04/25/1904/24/20 22:04 22:15 22:30 Temperature 97.7 F 97.7 F 97.7 F Pulse Rate 88 111 Respiratory 23 46 33 Rate Blood Pressure 113/77 107/90 109/70 (mmHg) O2 Sat by Pulse 93 90 Oximetry 04/25/19 04/25/19 04/25/19 22:42 22:46 22:47 Temperature 97.9 F 97.9 F Pulse Rate 132 138 Respiratory 27 15 18 Rate Blood Pressure 76/61 111/72 (mmHg) O2 Sat by Pulse 100 100 Oximetry 04/25/19 04/25/19 04/25/19 23:00 23:01 23:15 Temperature 97.7 F 97.9 F 97.9 F Pulse Rate 133 142 126 Respiratory 30 62 25 Rate Blood Pressure 124/83 125/98 (mmHg) O2 Sat by Pulse 97 97 91 Oximetry 04/25/19 04/25/19 04/25/19 23:30 23:46 23:57 Temperature 97.9 F 97.9 F 97.9 F Pulse Rate 144 146 150 Respiratory 11 19 17 Rate Blood Pressure 116/62 116/76 113/68 (mmHg) O2 Sat by Pulse 99 100 99 Oximetry 04/26/19 04/26/19 04/26/19 00:00 00:01 00:02 Temperature 97.9 F 97.9 F 97.9 F Pulse Rate 129 144 Respiratory 20 24 16 Rate Blood Pressure 109/54 121/80 (mmHg) O2 Sat by Pulse 88 100 Oximetry 04/26/19 04/26/19 04/26/19 00:09 00:13 00:15 Temperature 97.9 F 97.9 F 97.9 F Pulse Rate 155 144 118 Respiratory 20 14 13 Rate Blood Pressure 119/73 123/71 (mmHg) O2 Sat by Pulse 100 100 100 Oximetry 04/26/19 04/26/19 04/26/19 00:30 00:35 00:45 Temperature 97.9 F 97.9 F 97.9 F Pulse Rate 101 128 104 Respiratory 14 12 9 Rate Blood Pressure 103/64 121/69 117/70 (mmHg) O2 Sat by Pulse 100 98 100 Oximetry 04/26/19 04/26/19 04/26/19 00:50 00:55 01:00 Temperature 97.9 F 97.9 F 97.9 F Pulse Rate 125 108 103 Respiratory 18 12 23 Rate Blood Pressure 116/76 112/75 114/80 (mmHg) O2 Sat by Pulse 100 100 98 Oximetry 04/26/19 04/26/19 04/26/19 01:01 01:06 01:11 Temperature 97.9 F 97.9 F 97.9 F Pulse Rate 112 101 114 Respiratory 27 17 14 Rate Blood Pressure 118/73 122/73 (mmHg) O2 Sat by Pulse 97 99 100 Oximetry 04/26/19 04/26/19 04/26/19 01:15 01:30 01:45 Temperature 97.9 F 97.9 F 97.9 F Pulse Rate 128 104 117 Respiratory 21 15 9 Rate Blood Pressure 125/77 111/82 123/72 (mmHg) O2 Sat by Pulse 100 98 97 Oximetry 04/26/19 04/26/19 04/26/19 02:00 02:16 02:31 Temperature 97.9 F 97.7 F 97.7 F Pulse Rate 110 129 154 Respiratory 13 21 13 Rate Blood Pressure 133/63 144/73 135/96 (mmHg) O2 Sat by Pulse 98 99 100 Oximetry 04/26/19 04/26/19 04/26/19 02:46 03:00 03:01 Temperature 97.5 F 97.5 F 97.5 F Pulse Rate 94 122 124 Respiratory 17 11 13 Rate Blood Pressure 119/75 121/91 (mmHg) O2 Sat by Pulse 98 100 99 Oximetry 04/26/19 04/26/19 04/26/19 03:16 03:30 03:35 Temperature 97.5 F 97.5 F 97.7 F Pulse Rate 91 89 97 Respiratory 18 12 12 Rate Blood Pressure 126/82 118/78 127/75 (mmHg) O2 Sat by Pulse 99 95 100 Oximetry 04/26/19 04/26/19 04/26/19 03:45 04:00 04:01 Temperature 97.7 F 97.7 F 97.7 F Pulse Rate 132 120 95 Respiratory 14 21 22 Rate Blood Pressure 131/73 129/96 (mmHg) O2 Sat by Pulse 100 97 100 Oximetry 04/26/19 04/26/19 04/26/19 04:15 04:30 04:45 Temperature 97.7 F 97.7 F 97.9 F Pulse Rate 132 141 101 Respiratory 14 14 21 Rate Blood Pressure 120/90 134/79 127/91 (mmHg) O2 Sat by Pulse 100 100 100 Oximetry 04/26/19 04/26/19 04/26/19 04:53 04:59 05:00 Temperature 97.9 F Pulse Rate 108 Respiratory 26 21 9 Rate Blood Pressure (mmHg) O2 Sat by Pulse 100 Oximetry 04/26/19 04/26/19 04/26/19 05:15 05:17 05:30 Temperature 97.9 F 97.9 F Pulse Rate 109 102 Respiratory 14 18 19 Rate Blood Pressure 118/88 120/71 (mmHg) O2 Sat by Pulse 100 100 Oximetry 04/26/19 04/26/19 04/26/19 05:45 05:47 05:55 Temperature 97.9 F 97.9 F 97.7 F Pulse Rate 99 123 127 Respiratory 11 11 15 Rate Blood Pressure 116/75 116/82 112/96 (mmHg) O2 Sat by Pulse 100 100 100 Oximetry 04/26/19 04/26/19 04/26/19 06:00 06:03 06:15 Temperature 97.7 F 97.7 F 97.7 F Pulse Rate 105 143 112 Respiratory 12 12 25 Rate Blood Pressure 89/68 126/70 114/78 (mmHg) O2 Sat by Pulse 100 100 99 Oximetry 04/26/19 04/26/19 04/26/19 06:19 06:30 06:38 Temperature 97.7 F 97.7 F 97.7 F Pulse Rate 130 155 150 Respiratory 24 22 21 Rate Blood Pressure 105/71 114/74 120/83 (mmHg) O2 Sat by Pulse 100 99 100 Oximetry 04/26/19 04/26/19 04/26/19 06:46 07:00 07:04 Temperature 97.7 F 97.5 F 97.5 F Pulse Rate 144 108 107 Respiratory 7 8 9 Rate Blood Pressure 118/69 103/67 111/75 (mmHg) O2 Sat by Pulse 100 100 100 Oximetry 04/26/19 04/26/19 04/26/19 07:17 07:19 07:21 Temperature 97.7 F 97.7 F 97.5 F Pulse Rate 121 107 151 Respiratory 11 19 15 Rate Blood Pressure 161/134 137/104 (mmHg) O2 Sat by Pulse 100 100 100 Oximetry 04/26/19 04/26/19 04/26/19 07:30 07:45 08:00 Temperature 97.5 F 97.7 F 97.7 F Pulse Rate 117 104 134 Respiratory 11 8 28 Rate Blood Pressure 111/74 132/75 122/97 (mmHg) O2 Sat by Pulse 100 100 100 Oximetry 04/26/19 04/26/19 04/26/19 08:01 08:44 08:46 Temperature 97.7 F 97.3 F 97.2 F Pulse Rate 155 214 Respiratory 15 18 10 Rate Blood Pressure 119/77 126/70 (mmHg) O2 Sat by Pulse 100 70 Oximetry 04/26/19 04/26/19 04/26/19 09:00 09:01 09:16 Temperature 97.2 F 97.2 F 97.2 F Pulse Rate 93 Respiratory 25 12 23 Rate Blood Pressure 119/83 114/84 (mmHg) O2 Sat by Pulse 63 Oximetry 04/26/19 04/26/19 04/26/19 09:30 09:45 10:00 Temperature 97.3 F 97.3 F 97.3 F Pulse Rate Respiratory 21 14 25 Rate Blood Pressure 99/70 97/83 (mmHg) O2 Sat by Pulse Oximetry 04/26/19 04/26/19 04/26/19 10:01 10:15 10:30 Temperature 97.3 F 97.5 F 97.5 F Pulse Rate Respiratory 13 9 23 Rate Blood Pressure 112/83 125/89 133/92 (mmHg) O2 Sat by Pulse Oximetry 04/26/19 04/26/19 04/26/19 10:36 11:00 11:02 Temperature Pulse Rate Respiratory 22 22 22 Rate Blood Pressure (mmHg) O2 Sat by Pulse Oximetry 04/26/19 04/26/19 04/26/19 11:04 11:15 11:46 Temperature Pulse Rate 104 95 Respiratory 13 12 16 Rate Blood Pressure 113/67 119/81 124/104 (mmHg) O2 Sat by Pulse 98 91 Oximetry 04/26/19 04/26/19 04/26/19 12:00 12:15 12:30 Temperature 97.7 F 97.9 F 97.9 F Pulse Rate 98 96 145 Respiratory 19 22 13 Rate Blood Pressure 130/76 114/72 118/76 (mmHg) O2 Sat by Pulse 88 92 91 Oximetry 04/26/19 04/26/19 04/26/19 12:45 13:00 13:15 Temperature 97.9 F 97.9 F 97.9 F Pulse Rate 87 93 91 Respiratory 17 14 7 Rate Blood Pressure 119/66 113/71 110/69 (mmHg) O2 Sat by Pulse 91 92 92 Oximetry 04/26/19 04/26/19 04/26/19 13:30 13:45 14:00 Temperature 97.7 F 97.9 F 98.1 F Pulse Rate 98 142 161 Respiratory 18 15 14 Rate Blood Pressure 121/79 104/71 112/70 (mmHg) O2 Sat by Pulse 91 92 Oximetry 04/26/19 04/26/19 04/26/19 14:01 14:15 14:30 Temperature 97.9 F 98.1 F 98.1 F Pulse Rate 144 88 84 Respiratory 14 24 16 Rate Blood Pressure 101/74 110/70 (mmHg) O2 Sat by Pulse 92 100 91 Oximetry 04/26/19 04/26/19 04/26/19 14:45 15:00 15:01 Temperature 98.1 F 98.1 F 98.1 F Pulse Rate 82 89 97 Respiratory 13 16 13 Rate Blood Pressure 108/66 94/68 (mmHg) O2 Sat by Pulse 96 100 100 Oximetry 04/26/19 04/26/19 04/26/19 15:15 15:30 15:45 Temperature 98.1 F 98.1 F 97.9 F Pulse Rate 104 111 Respiratory 14 14 8 Rate Blood Pressure 104/79 112/58 97/65 (mmHg) O2 Sat by Pulse 93 94 Oximetry 04/26/19 04/26/19 04/26/19 16:00 16:01 16:15 Temperature 97.9 F 97.9 F 97.9 F Pulse Rate Respiratory 16 12 17 Rate Blood Pressure 104/70 106/67 (mmHg) O2 Sat by Pulse Oximetry 04/26/19 04/26/19 04/26/19 16:30 16:45 17:00 Temperature 97.9 F 97.9 F 97.9 F Pulse Rate Respiratory 16 12 17 Rate Blood Pressure 110/72 109/75 102/71 (mmHg) O2 Sat by Pulse Oximetry 04/26/19 17:01 Temperature 97.9 F Pulse Rate Respiratory 13 Rate Blood Pressure (mmHg) O2 Sat by Pulse Oximetry Intake and Output Last 24 Hours 04/24/19 04/25/19 04/26/19 04/27/19 06:59 06:59 06:59 06:59 Intake Total 2581 1788 3883 1529 Output Total 335 1405 460 190 Balance 2246 383 3423 1339 Weight 86 lb 14.417 oz 88 lb 4.828 oz 109 lb 5.588 oz Intake: IV Fluids 1811 1492 2641 260 1/2NS 8.4% Sodium 260 Bicarbonate ABX - FLAGYL 10 27 LR 1682 1435 2584 NS (0.9%) 69 57 30 Vitamin K 50 IVPB 151 176 935 787 ABX - CEFEPIME 67 109 ABX - FLAGYL 100 109 110 LR 716 787 NS (0.9%) 51 Medicated IV 19 307 482 Neosynephrine 19 307 482 Oral 600 120 Output: Urine 0 175 Maurer 335 680 460 190 Residual 550 Maurer 16 Fr Temperature 550 Probe Other: Estimated Void Small # Bowel Movements 1 Estimated Stool Amount Small # Voids 1 O2: 2LNC Infusions: Fadi, 1/2 NS 75meq bicarb Medications: Bisacodyl (Dulcolax Supp*) 10 mg MO DAILY PRN PRN Reason: CONSTIPATION Gabapentin (Neurontin Cap(*)) 100 mg PO BID [facility] Ceftriaxone Sodium 2 gm/ (Sodium Chloride) 100 mls @ 200 mls/hr IVPB Q24H [facility] Last Admin: 04/26/19 14:52 Dose: 200 mls/hr Sodium Bicarbonate 75 meq/ (Sodium Chloride) 1,075 mls @ 75 mls/hr IV ONCE ONE Stop: 04/27/19 00:04 Last Admin: 04/26/19 11:03 Dose: 75 mls/hr Magnesium Sulfate (Magnesium Sulf 4 Gm/100 Ml Iv*) 4,000 mg in 100 mls @ 33.333 mls/hr IVPB ONCE ONE Stop: 04/26/19 18:59 Last Admin: 04/26/19 17:14 Dose: 33.333 mls/hr Phenylephrine HCl 50 mg/ (Sodium Chloride) 250 mls @ 15 mls/hr IV .PER PROTOCOL TORY; Protocol Acetaminophen (Ofirmev*) 100 mls @ 400 mls/hr IVPB Q12H [facility] Stop: 04/27/19 17:59 Heparin Sodium/Dextrose (Heparin Drip 25,000 Units(*)) 25,000 units in 500 mls @ 0 mls/hr IV PER RATE TORY; Protocol Metoprolol Tartrate (Lopressor Iv*) 5 mg IV Q6H PRN PRN Reason: HEART RATE/PULSE GREATER THAN: Last Admin: 04/23/19 23:37 Dose: 5 mg Miscellaneous (Ativan Pyxis Hassan) 1 ea N/A .ATIVAN IV HASSAN PRN PRN Reason: PYXIS HASSAN Miscellaneous (Ativan Pyxis Hassan) 1 ea N/A .PYXIS HASSAN PRN PRN Reason: PER PROTOCOL Ondansetron HCl (Zofran Inj*) 4 mg IV Q6H PRN PRN Reason: NAUSEA Pantoprazole Sodium (Protonix Iv*) 40 mg IV DAILY [facility] Last Admin: 04/26/19 11:16 Dose: 40 mg Polyethylene Glycol/Electrolytes (Miralax (17 Gm Dose Sam)) 17 gm PO DAILY PRN PRN Reason: CONSTIPATION Last Admin: 04/23/19 17:25 Dose: 17 gm Prednisone (Deltasone 5 Mg Tab) 5 mg PO MOWEFR [facility] Last Admin: 04/25/19 08:58 Dose: 5 mg Physical Exam: Constitutional: somnolent, opens eyes to voice, mild distress at times, no diaphoresis, frail Head: normocephalic, atraumatic Eyes: no pallor, no icterus ENT: dry mucous membranes Neck: soft, supple CVS: normal rate, irregular, no murmur Chest/Resp: bilateral air entry, diminished throughout, no rhales, no wheeze, no rhonchi, no acc muscle use Abdomen/GI: soft, nontender, nondistended, BS hypoactive Ext/Msk: cool, pulses+, no edema Skin: intact, cool, decreased cap refill Neuro: somnolent, opens eyes to voice, nonverbal, says "oww" continuously to all stimulation. Moving all extremities minimally, appears to may be have a slightly weaker LUE. Labs: Laboratory Results - last 24 hr 04/25/19 04/25/19 04/25/19 17:27 17:27 17:27 WBC RBC Hgb Hct MCV MCH MCHC RDW Plt Count MPV Neut % (Auto) 95.2 Lymph % (Auto) 2.4 [place] % (Auto) 2.3 Eos % (Auto) 0.0 Baso % (Auto) 0.1 Absolute Neuts (auto) 23.3 H Absolute Lymphs (auto) 0.6 L Absolute Monos (auto) 0.6 Absolute Eos (auto) 0.0 Absolute Basos (auto) 0.0 Absolute Nucleated RBC 0.0 Nucleated RBC % 0.1 Sodium 143 Potassium 4.5 Chloride 120 H Carbon Dioxide 14 L* Anion Gap 9 BUN 59 H Creatinine 1.51 H Est GFR ( Amer) 40.2 Est GFR (Non-Af Amer) 33.2 BUN/Creatinine Ratio 39.1 H Glucose 116 H Calcium 8.4 L Phosphorus Magnesium Total Bilirubin AST ALT Alkaline Phosphatase Ammonia 58 H Troponin I 0.06 H* Total Protein Albumin Globulin Albumin/Globulin Ratio 04/25/19 04/26/19 04/26/19 23:46 03:48 03:48 WBC 30.4 H RBC 3.57 L Hgb 11.1 L Hct 34 L MCV 95 MCH 31 MCHC 33 RDW 16 H Plt Count 138 L MPV 9.7 Neut % (Auto) 94.7 Lymph % (Auto) 2.1 [place] % (Auto) 3.0 Eos % (Auto) 0.0 Baso % (Auto) 0.2 Absolute Neuts (auto) 28.8 H Absolute Lymphs (auto) 0.6 L Absolute Monos (auto) 0.9 H Absolute Eos (auto) 0.0 Absolute Basos (auto) 0.1 Absolute Nucleated RBC 0.1 Nucleated RBC % 0.3 Sodium 142 Potassium 4.5 Chloride 118 H Carbon Dioxide 16 L Anion Gap 8 BUN 57 H Creatinine 1.51 H Est GFR ( Amer) 40.2 Est GFR (Non-Af Amer) 33.2 BUN/Creatinine Ratio 37.7 H Glucose 120 H Calcium 8.7 Phosphorus 5.0 Magnesium 1.6 L Total Bilirubin 1.30 H AST 40 H ALT 61 H Alkaline Phosphatase 198 H Ammonia Troponin I 0.06 H* 0.11 H* Total Protein 5.0 L Albumin 2.8 L Globulin 2.2 Albumin/Globulin Ratio 1.3 04/26/19 16:04 WBC RBC Hgb Hct MCV MCH MCHC RDW Plt Count MPV Neut % (Auto) Lymph % (Auto) [place] % (Auto) Eos % (Auto) Baso % (Auto) Absolute Neuts (auto) Absolute Lymphs (auto) Absolute Monos (auto) Absolute Eos (auto) Absolute Basos (auto) Absolute Nucleated RBC Nucleated RBC % Sodium Potassium Chloride Carbon Dioxide Anion Gap BUN Creatinine Est GFR ( Amer) Est GFR (Non-Af Amer) BUN/Creatinine Ratio Glucose Calcium Phosphorus Magnesium Total Bilirubin AST ALT Alkaline Phosphatase Ammonia Troponin I 0.39 H* Total Protein Albumin Globulin Albumin/Globulin Ratio Imaging: CTH 04/25: No acute changes Abdominal xray 04/24: several gaseous loops of bowel MRI brain 04/24: motion limited but no definite abnormality Assessment: 79F with known medical history of melanoma, crohn's disease on chronic prednison, HTN, aflutter, initially presented on 04/21/2019 with lethargy , weakness, fevers, abdominal pain. Found to have severe sepsis likely from choledocholithiasis. She underwent ERCP on 04/23. She worsened on 04/24, @ 0957 with confusion, word finding difficulty. Plan: Neuro- - AMS/stroke-like symptoms: MRI neg for stroke although limited by motion. Metabolic encephalopathy vs delirium vs stroke vs subclinical seizure - Neurology was consulted. Rpt CTH this AM was also negative - Attempted 1mg Ativan but did not improve patient's mental status -Delirium prec; avoid BDZ CVS- - No need to keep BP elevated at this time. Wean quickly off pressors -Titrate Pressors to Maintain MAP>65 - Afib: will be starting heparin drip for anticoagulation. Rate is controlled Resp- - Needed to be placed on 2L NC after ativan was given -Wean Fio2 to keep sat>92% -Bronchodilators PRN, Aspiration prec, Pulmonary Toilet ID- - Goal temp<101 - Sepsis: improving. continue ceftriaxone GI- -Nutrition: Ok for meds. Needs official swallow eval -GI prophylaxis PPI Renal- -strict I/O, replete to keep K>4, Mg>2 -maurer as indicated Heme- - Will be starting heparin drip for DVT/stroke prophylaxis Endo-Maintain BG<200, insulin protocol as needed Musculsk- pressure ulcer prophylaxis. Bedrest. Wounds- none Nutrition- ok for PO meds only. DVT prophylaxis: heparin drip GI prophylaxis: PPI Maurer Catheter: continue Disposition: Patient requires Critical Care/ICU for AMS, sepsis, hypotension Patient clinical status: critical Code Status: full Total Critical Care time is 30minutes <Parish Chris - Last Filed: 04/26/19 20:24> Progress Note - Progress Note Note: I agree with Dahiana Lundy's Assessment and plan: 1. Encephalopathy Metabolic Acute 2. r/o seizure 3. hx of afib flutter 4. HERLINDA 5. Ecoli and klebsiella bactremia s/p ERCP for Cholangitis 6. s/p Uti 7. Hx of Crohn's dz and hypertenison Plan: Wean off gabapentin, Mri negative and no LVO: She seems aphasic however MrI showed no stroke We will start anticoagulation soon I want her sensorium to clear before she leaves the ICU. Ceftriaxone is continued. She will need 14 days of abx. We will follow up the EEG. CCM time is 30 minutes.
[2019-04-26] MEDS: Acetaminophen IV 1GM/100ML * 100 ML IVPB SCH (18:41)
[2019-04-26] MEDS: Gabapentin CAP(*) 100 MG PO SCH (20:13)
[2019-04-26 22:34] LABS: Troponin I 0.61 ng/mL (<0.03)
[2019-04-27] MEDS: Metoprolol Tartrate IV* 1 MG/ML 5 ML VIAL IV PRN ×2 (02:02→19:06)
[2019-04-27] MEDS: Acetaminophen IV 1GM/100ML * 100 ML IVPB SCH (05:16)
[2019-04-27] MEDS: Pantoprazole IV* 40 MG IV SCH (08:35)
[2019-04-27 09:24] LABS: Troponin I 0.55 ng/mL (<0.03)
[2019-04-27 09:49] LABS: Magnesium 2.3 mg/dL (1.9-2.7)
[2019-04-27 10:35] LABS: Hematocrit 32 % (35-47); Hemoglobin 10.5 g/dL (12.0-16.0); Mean Corpuscular HGB Conc 33 g/dL (31-36); Mean Corpuscular Hemoglobin 31 pg (27-31); Mean Corpuscular Volume 95 fL (80-97); Red Blood Count 3.37 10^6 /uL (3.70-4.87); Red Cell Distribution Width 16 % (10-15); White Blood Count 11.6 10^3/uL (3.5-10.8)
[2019-04-27 10:58] LABS: ABS Eosinophils 0.1 10^3/ul (0-0.6); ABS Monocytes 0.6 10^3/ul (0-0.8); ABS Neutrophils 9.8 10^3/ul (1.5-7.7); Eosinophil % 0.7 %; Mean Platelet Volume 9.8 fL (7.4-10.4); Nucleated Red Blood Cells % 0.2; Platelet Count 72 10^3/uL (150-450)
[2019-04-27 11:01] LABS: Polychromasia 1+
[2019-04-27] MEDS: Gabapentin CAP(*) 100 MG PO SCH ×2 (11:12→20:33)
[2019-04-27] MEDS: Metoprolol Tartrate TAB* 25 MG PO SCH ×2 (11:12→20:33)
[2019-04-27 12:23] LABS: ALT 43 U/L (7-52); AST 43 U/L (13-39); Albumin 2.4 g/dL (3.2-5.2); Albumin/Globulin Ratio 1.4 (1-3); Alkaline Phosphatase 159 U/L (34-104); Anion Gap 10 mmol/L (2-11); BUN/Creatinine Ratio 35.2 (8-20); Blood Urea Nitrogen 50 mg/dL (6-24); CO2 Carbon Dioxide 15 mmol/L (22-32); Calcium 7.5 mg/dL (8.6-10.3); Chloride 120 mmol/L (101-111); EGFR African American 43.2 (>60); EGFR Non-African American 35.7 (>60); Globulin 1.7 g/dL (2-4); Glucose 83 mg/dL (70-100); Sodium 145 mmol/L (135-145); Total Protein 4.1 g/dL (6.4-8.9)
--- NOTE | 2019-04-27 13:21 | PN ---
Date of Service: 04/27/19 Critical Care Services: mental status is much better; She is moving all extremities and she know that she is in the hospital. Vital Signs: Temp Pulse Resp BP SpO2 FiO2 96.6 F 86 15 108/75 100 04/27/19 12:01 04/27/19 12:01 04/27/19 12:01 04/27/19 12:00 04/27/19 12:01 Physical Exam: Gen: Awake alert and oriented now after ng tube placed. HEENT: nc/at perrla Lungs: cta b no wheezing and now rhonchi Cardiac: s1s2 rrr no murmurs an no rubs Abdomen: soft nt/nd bs+ Extremities: no edema. Neuro: AAO now and moving all extremities. Fluid Balance (Past 24 Hours): I= O= Net Intake & Output 04/25/19 04/26/19 04/27/19 04/28/19 06:59 06:59 06:59 06:59 Intake Total 1788 3883 2907 Output Total 1405 460 805 250 Balance 383 3423 2102 -250 Weight 88 lb 4.828 oz 109 lb 5.588 oz 117 lb 15.157 oz Intake: IV Fluids 1492 2641 1152 1/2NS 8.4% Sodium 1085 Bicarbonate ABX - FLAGYL 27 LR 1435 2584 NS (0.9%) 57 30 67 IVPB 748 112 3866 ABX - CEFEPIME 67 109 ABX - FLAGYL 109 110 Acetaminophen 103 LR 716 787 Mag 214 Medicated IV 307 651 Neosynephrine 307 651 Oral 120 Output: Urine 175 [place] 680 460 805 250 Residual 550 [place] 16 Fr Temperature 550 Probe Other: Date of Last Bowel 04/27/19 Movement # Bowel Movements 1 Estimated Stool Amount Medium Labs: Laboratory Results - last 24 hr 04/26/19 04/26/19 04/26/19 16:04 18:37 21:48 WBC RBC Hgb Hct MCV MCH MCHC RDW Plt Count MPV Neut % (Auto) Lymph % (Auto) [place] % (Auto) Eos % (Auto) Baso % (Auto) Absolute Neuts (auto) Absolute Lymphs (auto) Absolute Monos (auto) Absolute Eos (auto) Absolute Basos (auto) Absolute Nucleated RBC Immature Gran % Neutrophils % Band Neutrophils % Lymphocytes % Reactive Lymphs % Monocytes % Nucleated RBC % Nucleated RBCs/100 WBC Normal RBC Morphology Polychromasia Anisocytosis APTT 36.2 Sodium Potassium Chloride Carbon Dioxide Anion Gap BUN Creatinine Est GFR ( Amer) Est GFR (Non-Af Amer) BUN/Creatinine Ratio Glucose Calcium Phosphorus Magnesium Total Bilirubin AST ALT Alkaline Phosphatase Ammonia Troponin I 0.39 H* 0.61 H* Total Protein Albumin Globulin Albumin/Globulin Ratio Cortisol 15.68 04/27/19 04/27/19 04/27/19 08:34 09:58 09:58 WBC 11.6 H RBC 3.37 L Hgb 10.5 L Hct 32 L MCV 95 MCH 31 MCHC 33 RDW 16 H Plt Count 72 L D MPV 9.8 Neut % (Auto) 84.8 Lymph % (Auto) 9.0 [place] % (Auto) 5.4 Eos % (Auto) 0.7 Baso % (Auto) 0.1 Absolute Neuts (auto) 9.8 H Absolute Lymphs (auto) 1.0 Absolute Monos (auto) 0.6 Absolute Eos (auto) 0.1 Absolute Basos (auto) 0.0 Absolute Nucleated RBC 0.0 Immature Gran % 1.0 Neutrophils % 84.0 Band Neutrophils % 1.0 Lymphocytes % 10.0 Reactive Lymphs % 2.0 Monocytes % 3.0 Nucleated RBC % 0.2 Nucleated RBCs/100 WBC 2.0 H Normal RBC Morphology Not Reportable Polychromasia 1+ Anisocytosis 1+ APTT Sodium 145 Potassium 4.0 Chloride 120 H Carbon Dioxide 15 L Anion Gap 10 BUN 50 H Creatinine 1.42 H Est GFR ( Amer) 43.2 Est GFR (Non-Af Amer) 35.7 BUN/Creatinine Ratio 35.2 H Glucose 83 Calcium 7.5 L Phosphorus 3.0 Magnesium 2.3 Total Bilirubin 1.20 H AST 43 H ALT 43 Alkaline Phosphatase 159 H Ammonia 58 H Troponin I 0.55 H* Total Protein 4.1 L Albumin 2.4 L Globulin 1.7 L Albumin/Globulin Ratio 1.4 Cortisol Impression: Metabolic encephalopathy resolving S/p cholangitis s/p ERCP s/p septic shock atrial fib and flutter Metabolic acidosis Acute renal failure Crohn's dz E coli and Klebsiella Bactremia Thrombocytopenia Elevated troponins Plan: -Mental status better; stroke workup is negative. -ammonia is slightly elevated we will give lactulose however does not appear to be hepatic encephalopathy -Will need 14 days of ceftriaxone; s/p ERCP -Was going to start Anticoagulation today however platelets dropped to 70. Will hold and hear from Dr. Estrada; he did not want Anticoagulation started yesterday per nurse -Rate controlled with metoprolol -Ng tube placed will start tube feeds -Echo will be done tommorrow to look for new WMA -renal function is getting better -Patient is on prednisone for crohn's dz -Spoke to lab; no schistocytes on the CBC with differential; drop in platlets is most likely 2nd to the infection. Critical Care Time:
[2019-04-27] MEDS: cefTRIAXone(*) 2 GM in NS 0.9% 100 ML* 100 ML IVPB SCH (14:54)
--- NOTE | 2019-04-27 15:10 | PN ---
Subjective Date of Service: 04/27/19 Length of Stay: 6 Days Neurology is following for the evaluation of encephalopathy. Interval History: She is more awake and interactive this afternoon. She's requesting to go home. She denied any headache or pain. She is moving all extremities to command. She appears slightly better than when I first saw her two days ago, definitely much better than yesterday. She can form 2-3 word sentences. An NG has been placed yesterday. Cortisol level is normal today. She is no longer requiring pressor support. Review of Systems: Denied CP, SOB, or palpitations. Objective Active Medications: Bisacodyl (Dulcolax Supp*) 10 mg [place] DAILY PRN PRN Reason: CONSTIPATION Gabapentin (Neurontin Cap(*)) 100 mg PO BID [facility] Last Admin: 04/27/19 11:12 Dose: 100 mg Ceftriaxone Sodium 2 gm/ (Sodium Chloride) 100 mls @ 200 mls/hr IVPB Q24H [facility] Last Admin: 04/27/19 14:54 Dose: 200 mls/hr Phenylephrine HCl 50 mg/ (Sodium Chloride) 250 mls @ 15 mls/hr IV .PER PROTOCOL TORY; Protocol Acetaminophen (Ofirmev*) 100 mls @ 400 mls/hr IVPB Q12H [facility] Stop: 04/27/19 17:59 Last Admin: 04/27/19 05:16 Dose: 400 mls/hr Lactulose (Lactulose*) 30 ml NG TUBE BID [facility] Stop: 04/29/19 20:59 Metoprolol Tartrate (Lopressor Iv*) 5 mg IV Q6H PRN PRN Reason: HEART RATE/PULSE GREATER THAN: Last Admin: 04/27/19 02:02 Dose: 5 mg Metoprolol Tartrate (Lopressor Tab*) 25 mg PO BID [facility] Last Admin: 04/27/19 11:12 Dose: 25 mg Miscellaneous (Ativan Pyxis Hassan) 1 ea N/A .ATIVAN IV HASSAN PRN PRN Reason: PYXIS HASSAN Miscellaneous (Ativan Pyxis Hassan) 1 ea N/A .PYXIS HASSAN PRN PRN Reason: PER PROTOCOL Ondansetron HCl (Zofran Inj*) 4 mg IV Q6H PRN PRN Reason: NAUSEA Pantoprazole Sodium (Protonix Iv*) 40 mg IV DAILY [facility] Last Admin: 04/27/19 08:35 Dose: 40 mg Polyethylene Glycol/Electrolytes (Miralax (17 Gm Dose Sam)) 17 gm PO DAILY PRN PRN Reason: CONSTIPATION Last Admin: 04/23/19 17:25 Dose: 17 gm Prednisone (Deltasone 5 Mg Tab) 5 mg PO MOWEFR [facility] Last Admin: 04/25/19 08:58 Dose: 5 mg Vital Signs 04/26/19 04/26/19 04/26/19 15:15 15:30 15:45 Temperature 98.1 F 98.1 F 97.9 F Pulse Rate 104 111 Respiratory 14 14 8 Rate Blood Pressure 104/79 112/58 97/65 (mmHg) O2 Sat by Pulse 93 94 Oximetry 04/26/19 04/26/19 04/26/19 16:00 16:01 16:15 Temperature 97.9 F 97.9 F 97.9 F Pulse Rate Respiratory 16 12 17 Rate Blood Pressure 104/70 106/67 (mmHg) O2 Sat by Pulse Oximetry 04/26/19 04/26/19 04/26/19 16:30 16:45 17:00 Temperature 97.9 F 97.9 F 97.9 F Pulse Rate Respiratory 16 12 17 Rate Blood Pressure 110/72 109/75 102/71 (mmHg) O2 Sat by Pulse Oximetry 04/26/19 04/26/19 04/26/19 17:01 17:15 17:30 Temperature 97.9 F 97.9 F 97.9 F Pulse Rate Respiratory 13 12 12 Rate Blood Pressure 102/73 109/73 (mmHg) O2 Sat by Pulse Oximetry 04/26/19 04/26/19 04/26/19 17:45 18:00 18:01 Temperature 97.9 F 97.9 F 97.9 F Pulse Rate 84 94 Respiratory 17 14 Rate Blood Pressure 106/83 104/63 (mmHg) O2 Sat by Pulse 100 97 Oximetry 04/26/19 04/26/19 04/26/19 18:15 18:30 18:45 Temperature 97.9 F 97.9 F 97.9 F Pulse Rate 75 Respiratory 12 16 8 Rate Blood Pressure 123/75 103/68 90/58 (mmHg) O2 Sat by Pulse 97 Oximetry 04/26/19 04/26/19 04/26/19 19:00 19:01 19:15 Temperature 97.9 F 97.7 F 97.7 F Pulse Rate Respiratory 17 16 26 Rate Blood Pressure 111/75 97/75 (mmHg) O2 Sat by Pulse Oximetry 04/26/19 04/26/19 04/26/19 19:30 19:45 19:54 Temperature 97.5 F 97.5 F Pulse Rate 79 Respiratory 15 14 14 Rate Blood Pressure 93/65 107/80 (mmHg) O2 Sat by Pulse 99 Oximetry 04/26/19 04/26/19 04/26/19 20:00 20:01 20:15 Temperature 97.5 F 97.5 F 97.5 F Pulse Rate 77 Respiratory 19 16 16 Rate Blood Pressure 112/75 109/71 (mmHg) O2 Sat by Pulse 97 Oximetry 04/26/19 04/26/19 04/26/19 20:30 20:45 21:00 Temperature 97.5 F 97.3 F 97.3 F Pulse Rate 88 85 91 Respiratory 12 23 16 Rate Blood Pressure 101/67 97/71 83/68 (mmHg) O2 Sat by Pulse 98 98 85 Oximetry 04/26/19 04/26/19 04/26/19 21:01 21:15 21:30 Temperature 97.3 F 97.3 F 97.2 F Pulse Rate Respiratory 13 12 21 Rate Blood Pressure 99/64 86/59 (mmHg) O2 Sat by Pulse Oximetry 04/26/19 04/26/19 04/26/19 21:46 22:00 22:01 Temperature 97.2 F 97.2 F 97.2 F Pulse Rate 93 Respiratory 20 8 12 Rate Blood Pressure 103/64 115/75 (mmHg) O2 Sat by Pulse 95 Oximetry 04/26/19 04/26/19 04/26/19 22:15 22:30 22:45 Temperature 97.2 F 97.2 F 97.2 F Pulse Rate 73 Respiratory 21 21 14 Rate Blood Pressure 97/56 92/62 101/56 (mmHg) O2 Sat by Pulse 100 Oximetry 04/26/19 04/26/19 04/26/19 23:00 23:01 23:15 Temperature 97.2 F 97.2 F 97.0 F Pulse Rate 85 Respiratory 17 25 24 Rate Blood Pressure 92/64 87/63 (mmHg) O2 Sat by Pulse 100 Oximetry 04/26/19 04/26/19 04/26/19 23:31 23:43 23:45 Temperature 97.0 F 97.0 F Pulse Rate 76 Respiratory 23 18 24 Rate Blood Pressure 90/56 82/56 (mmHg) O2 Sat by Pulse 99 Oximetry 04/27/19 04/27/19 04/27/19 00:00 00:01 00:02 Temperature 97.0 F 97.0 F 97.0 F Pulse Rate 95 86 87 Respiratory 15 17 20 Rate Blood Pressure 103/67 (mmHg) O2 Sat by Pulse 85 100 92 Oximetry 04/27/19 04/27/19 04/27/19 00:15 00:30 00:45 Temperature 97.0 F 97.0 F 97.0 F Pulse Rate 83 Respiratory 16 19 19 Rate Blood Pressure 114/73 109/66 110/64 (mmHg) O2 Sat by Pulse Oximetry 04/27/19 04/27/19 04/27/19 01:00 01:01 01:15 Temperature 97.0 F 97.0 F 97.0 F Pulse Rate 96 132 Respiratory 20 15 16 Rate Blood Pressure 111/70 111/76 (mmHg) O2 Sat by Pulse 94 100 Oximetry 04/27/19 04/27/19 04/27/19 01:30 01:46 01:47 Temperature 97.0 F 96.8 F 96.8 F Pulse Rate 152 143 Respiratory 16 16 16 Rate Blood Pressure 101/63 121/92 (mmHg) O2 Sat by Pulse 97 95 Oximetry 04/27/19 04/27/19 04/27/19 02:00 02:16 02:30 Temperature 96.8 F 96.8 F 96.8 F Pulse Rate 163 104 Respiratory 18 20 24 Rate Blood Pressure 112/87 101/77 109/63 (mmHg) O2 Sat by Pulse 91 93 Oximetry 04/27/19 04/27/19 04/27/19 02:45 03:00 03:01 Temperature 96.6 F 96.6 F 96.6 F Pulse Rate Respiratory 29 19 24 Rate Blood Pressure 92/71 110/93 (mmHg) O2 Sat by Pulse Oximetry 04/27/19 04/27/19 04/27/19 03:31 04:00 04:01 Temperature 96.6 F 96.6 F 96.6 F Pulse Rate 143 161 139 Respiratory 25 18 21 Rate Blood Pressure 91/83 85/83 (mmHg) O2 Sat by Pulse 94 96 96 Oximetry 04/27/19 04/27/19 04/27/19 04:15 04:30 05:00 Temperature 96.8 F 97.0 F 96.8 F Pulse Rate 93 96 105 Respiratory 20 24 8 Rate Blood Pressure 84/66 88/59 92/60 (mmHg) O2 Sat by Pulse 97 99 96 Oximetry 04/27/19 04/27/19 04/27/19 05:01 05:30 06:00 Temperature 96.8 F 96.6 F 96.6 F Pulse Rate 108 77 Respiratory 11 13 25 Rate Blood Pressure 116/77 (mmHg) O2 Sat by Pulse 95 83 Oximetry 04/27/19 04/27/19 04/27/19 06:01 06:30 07:00 Temperature 96.6 F Pulse Rate 97 102 Respiratory 19 13 28 Rate Blood Pressure 120/89 101/67 115/66 (mmHg) O2 Sat by Pulse 100 100 Oximetry 04/27/19 04/27/19 04/27/19 07:01 07:30 08:00 Temperature 98.7 F Pulse Rate 95 110 102 Respiratory 14 24 16 Rate Blood Pressure 118/82 124/66 (mmHg) O2 Sat by Pulse 100 100 100 Oximetry 04/27/19 04/27/19 04/27/19 08:01 08:30 09:00 Temperature 96.6 F Pulse Rate 102 109 91 Respiratory 14 18 18 Rate Blood Pressure 101/70 103/61 (mmHg) O2 Sat by Pulse 100 98 100 Oximetry 04/27/19 04/27/19 04/27/19 09:01 10:00 11:00 Temperature 96.6 F 96.6 F 96.6 F Pulse Rate 88 150 Respiratory 17 13 17 Rate Blood Pressure 125/82 (mmHg) O2 Sat by Pulse 87 97 Oximetry 04/27/19 04/27/19 04/27/19 11:01 12:00 12:01 Temperature 96.6 F 98.2 F 96.6 F Pulse Rate 109 86 Respiratory 12 14 15 Rate Blood Pressure 108/75 (mmHg) O2 Sat by Pulse 100 100 Oximetry 04/27/19 04/27/19 04/27/19 13:00 14:00 14:01 Temperature Pulse Rate Respiratory 16 14 12 Rate Blood Pressure 117/79 (mmHg) O2 Sat by Pulse Oximetry Intake and Output Last 24 Hours 04/25/19 04/26/19 04/27/19 04/28/19 06:59 06:59 06:59 06:59 Intake Total 1788 3883 2907 Output Total 1405 460 805 250 Balance 383 3423 2102 -250 Weight 88 lb 4.828 oz 109 lb 5.588 oz 117 lb 15.157 oz Intake: IV Fluids 1492 2641 1152 1/2NS 8.4% Sodium 1085 Bicarbonate ABX - FLAGYL 27 LR 1435 2584 NS (0.9%) 57 30 67 IVPB 196 803 1052 ABX - CEFEPIME 67 109 ABX - FLAGYL 109 110 Acetaminophen 103 LR 716 787 Mag 214 Medicated IV 307 651 Neosynephrine 307 651 Oral 120 Output: Urine 175 York 680 460 805 250 Residual 550 York 16 Fr Temperature 550 Probe Other: Date of Last Bowel 04/27/19 Movement # Bowel Movements 1 Estimated Stool Amount Medium Oxygen Devices in Use Now: Nasal Cannula Neurology Exam: General: Frail ill appearing elderly female in no distress. HEENT: Normocephelic/atraumatic, sclera anicteric, mucous membranes moist Neurological Findings: Drowsy appearing female who is laying in bed. She is more conversant. She seems sad due to the prolonged hospitalization now. Cranial Nerve: PERRL, EOM, no facial asymmetry Motor: Moves all extremities symmetrically against gravity. Sensation: intact to LT bilaterally upper and lower extremities Deep Tendon Reflex: 3 + throughout. Unable to participate with finger to nose or heal to garcia testing. She is unable to walk at this time. Result Diagrams: 04/27/19 09:58 04/27/19 08:34 Microbiology and Other Data: Microbiology 04/21/19 20:05 Aerobic Blood Culture - Final Blood Venous Klebsiella Variicola Escherichia Coli Anaerobic Blood Culture - Final Escherichia Coli Klebsiella Variicola 04/21/19 20:05 Aerobic Blood Culture - Final Blood Venous Escherichia Coli Klebsiella Variicola 04/21/19 22:43 Urine Culture - Final Urine Klebsiella Variicola 04/22/19 01:31 Nasal Screen MRSA (PCR) - Final Nasal Mrsa Not Detected Assessment/Plan Ms. Perry is a 79-year-old female who has history of severe cervical spondylosis with myelopathy (she follows with Dr. Connolly and surgical fixation was not on option due to her age and morbidity), atrial fibrillation who was on Xarelto at home who presented to [facility] with abdominal pain and fevers on 04/20. She was found to be in septic shock due to cholangitis s/p sphincterotomy ERCP drainage with stone removal. She was placed on Cefepime [facility] [address] 04/20. This was discontinued yesterday on 04/24. The patient's son reported that the patient has not been communicating well and not back to her normal self since surgery on . A code beard was activated on 04/25/2019 as the patient was persevering and experiencing word finding difficulty. She was deemed not a candidate for alteplase therapy due to being outside the therapeutic window. The MRI obtained yesterday showed no evidence of acute stroke or LVO. 1. The working diagnosis here is toxic-metabolic encephalopathy due to cefepime therapy in an elderly female with subpar renal function and hyperammonemic encephalopathy. She still appears encephalopathic and has trouble with word finding difficulty and confusion, but appears much better than yesterday. . An EEG showed abundance of triphasic waves throughout the recording which correlates with an underlying toxic-metabolic encephalopathy related to the underlying infection and/or antibiotic therapy. An Ativan test to evaluate for nonconvulsant status epilepticus was performed at bedside yesterday but the patient did not have a positive response. Instead she slept and became transiently hypoxic. She has recovered from this. This would argue against anti-seizure medications since she did not improve with benzodiazepine, and supports the diagnosis of metabolic encephalopathy rather than nonconvulsive seizures. 2. Elevated troponins. Due to NSTEMI or demand ischemia. Defer further recommendations to the primary team. Recommendations: - Continue supportive care - Minimize the use of benzodiazepines, narcotics, or anti-cholinergics - Neuro checks per unit protocol - There is no contraindication for anticoagulation therapy from the neurology standpoint. Please discontinue aspirin once anticoagulation therapy is restarted. - Consider Lactulose therapy. - Start tube feedings if cleared by GI. I will sign off, but we are available for any questions or concerns.
[2019-04-27] MEDS ORDERED: Acetaminophen ADULT LIQ* 650 MG/20.3 ML UDC NG TUBE ONE (21:15)
[2019-04-27] MEDS ORDERED: Morphine INJ* 2 MG/ML 1 ML SYRINGE (TWO MG - NEW SYRINGE VERSION) IV ONE (23:19)
[2019-04-28 04:51] LABS: Hematocrit 32 % (35-47); Hemoglobin 10.8 g/dL (12.0-16.0); Mean Corpuscular HGB Conc 34 g/dL (31-36); Mean Corpuscular Hemoglobin 32 pg (27-31); Mean Corpuscular Volume 94 fL (80-97); Mean Platelet Volume 10.4 fL (7.4-10.4); Platelet Count 72 10^3/uL (150-450); Red Blood Count 3.38 10^6 /uL (3.70-4.87); Red Cell Distribution Width 16 % (10-15); White Blood Count 10.1 10^3/uL (3.5-10.8)
[2019-04-28 05:11] LABS: ABS Lymphocytes 0.5 10^3/ul (1.0-4.8); ABS Monocytes 0.6 10^3/ul (0-0.8); ABS Neutrophils 8.9 10^3/ul (1.5-7.7); Eosinophil % 0.5 %; Lymphocyte % 5.1 %; Nucleated Red Blood Cells % 0.1
[2019-04-28 05:17] LABS: Albumin 2.6 g/dL (3.2-5.2); Albumin/Globulin Ratio 1.2 (1-3); BUN/Creatinine Ratio 32.5 (8-20); Calcium 8.2 mg/dL (8.6-10.3); EGFR African American 38.5 (>60); EGFR Non-African American 31.8 (>60); Globulin 2.1 g/dL (2-4); Magnesium 2.3 mg/dL (1.9-2.7); Phosphorus 3.2 mg/dL (2.5-5.0); Potassium 3.8 mmol/L (3.5-5.0); Total Bilirubin 1.2 mg/dL (0.2-1.0); Total Protein 4.7 g/dL (6.4-8.9)
[2019-04-28 05:22] LABS: Activated Partial Thrombo Time 36.2 seconds (26.0-38.0); Fibrinogen 345.3 mg/dL (110.8-404.3); INR 1.48 (0.82-1.09)
--- NOTE | 2019-04-28 07:21 | PN ---
Hospitalist Progress Note Date of Service: 04/28/19 Overnight patient had intermittent episodes of afib rvr that seemed to correlate with pain. Patient noted to be anxious and in pain. 2 mg morphine given and afib rvr resolved.
[2019-04-28] MEDS: Gabapentin CAP(*) 100 MG PO SCH ×2 (10:18→22:32)
[2019-04-28] MEDS: Metoprolol Tartrate TAB* 25 MG PO SCH (10:23)
[2019-04-28] MEDS: Pantoprazole IV* 40 MG IV SCH (10:24)
--- NOTE | 2019-04-28 10:53 | ECHO ---
*[facility]* [place] [address] Fax #: [phone] Limited Transthoracic Echocardiogram Patient: Alicia Perry : 1940 Study Date: 04/28/2019 Age: 79 Gender: F HR: Height: 65 in /165.1 cm BSA: 1.56 m^2 Weight: 117 lb /53.2 kg BMI: 19.5 kg/m^2 *Referring Physician: * Parish Chris *Reading Physician: * Feliz Fuller MD Indications: CVA. Abnormal EKG. History: Atrial flutter. Risk factors: Former tobacco use. Hypertension. Conclusions Summary: Atrial septum: No defect or patent foramen ovale is identified. Bubble study was negative Study data: Transthoracic echocardiogram, limited study. Procedure: Transthoracic echocardiography was performed. Image quality was good. A bubble study was performed. Location: Bedside. Patient status: Inpatient. Patient room number: 436. Rhythm: Atrial flutter. Findings Atrial septum: Well visualized. No defect or patent foramen ovale is identified. Bubble study was negative Prepared and electronically signed by Feliz Fuller MD 04/28/2019 10:52
--- NOTE | 2019-04-28 11:59 | PN ---
Progress Note - Progress Note Date of Service: 04/28/19 Note: GI followup lethargic, able to answer yes/no; denies any abd pain or diarrhea VS: 98, 125/81, 96, 18 nad, +bs, soft, nt/nd LFTs stable Crohns--->not active cholodocolithiasis--->fu with Dr Clarence Tilley MD
[2019-04-28] MEDS ORDERED: NS 0.9% 100 ML* 100 ML ONE (14:47)
[2019-04-28] MEDS: cefTRIAXone(*) 2 GM in NS 0.9% 100 ML* 100 ML IVPB SCH (14:59)
--- NOTE | 2019-04-28 16:14 | PN ---
Subjective Date of Service: 04/28/19 Interval History: Ms. Perry is sleeping on my exam. She will wake to answer yes/no questions, but will not verbalize anything further. She admits to feeling tired and having abdominal pain, but it is difficult to determine if this abdominal pain is constant or just when palpated. Patient had episode of RVR overnight which seemed to correspond with pain and has since resolved. No concerns from nursing. Family History: Unchanged from Admission Social History: Unchanged from Admission Past Medical History: Unchanged from Admission Objective Active Medications: Bisacodyl (Dulcolax Supp*) 10 mg [place] DAILY PRN CONSTIPATION Gabapentin (Neurontin Cap(*)) 100 mg PO BID [facility] Ceftriaxone Sodium 2 gm/ (Sodium Chloride) 100 mls @ 200 mls/hr IVPB Q24H [facility] Lactulose (Lactulose*) 30 ml NG TUBE BID [facility] Metoprolol Tartrate (Lopressor Iv*) 5 mg IV Q6H PRN HEART RATE/PULSE GREATER THAN Metoprolol Tartrate (Lopressor Tab*) 25 mg PO BID [facility] Ondansetron HCl (Zofran Inj*) 4 mg IV Q6H PRN NAUSEA Pantoprazole Sodium (Protonix Iv*) 40 mg IV DAILY [facility] Polyethylene Glycol/Electrolytes (Miralax (17 Gm Dose Sam)) 17 gm PO DAILY PRN CONSTIPATION Prednisone (Deltasone 5 Mg Tab) 5 mg PO MOWEFR [facility] Vital Signs - 8 hr 04/28/19 04/28/19 04/28/19 10:18 11:15 11:59 Temperature 98.1 F Pulse Rate 80 Respiratory 16 16 16 Rate Blood Pressure 124/74 (mmHg) O2 Sat by Pulse 94 Oximetry 04/28/19 15:15 Temperature 98.3 F Pulse Rate 116 Respiratory 20 Rate Blood Pressure 123/68 (mmHg) O2 Sat by Pulse 97 Oximetry Oxygen Devices in Use Now: Nasal Cannula - 4L Appearance: Elderly female lying in bed in NAD Ears/Nose/Mouth/Throat: Mucous Membranes Moist Neck: NL Appearance and Movements; NL JVP, Trachea Midline Respiratory: Symmetrical Chest Expansion and Respiratory Effort, Clear to Auscultation Cardiovascular: NL Sounds; No Murmurs; No JVD Abdominal: - - Soft, tender throughout, +BS Neurological: - - Wakes to voice, orientation unclear Result Diagrams: 04/28/19 04:30 04/28/19 04:30 Assess/Plan/Problems-Billing Assessment: Ms. Perry is a 79 yo F with PMH of aflutter, melanoma, Crohn's, GERD, neuropathy, HTN, chronic York d/t urinary retention, pressure ulcers; presented with spetic shock requiring pressors, with a suspect source of cholangitis. - Patient Problems (1) Cholangitis Code(s): K83.09 - OTHER CHOLANGITIS Comment: - CT on admission showing choledocholithiasis - Appreciate GI consult - ERCP 04/23: CBD stent placed - Transaminitis improving - Will need outpatient follow up with Dr. Lima and likely cholecystitis - Continue ceftriaxone (day 08/18) (2) Bacteremia Code(s): R78.81 - BACTEREMIA Comment: - BC positive for Klebsiella and E. coli - Survelliance cultures NTD - Continue ceftriaxone (day 08/18) (3) Toxic metabolic encephalopathy Code(s): G92 - TOXIC ENCEPHALOPATHY Comment: - Typically oriented and living alone, but has been altered and drowsy this admission - Code Long 04/24 d/t word finding difficulty; was deemed not a candidate for tPA - Appreciate Neuro consult - MRI brain unremarkable - EEG showing findings consistent with metabolic encephalopathy; also did not improve with benzos, so seizures have been ruled out - Suspected encephalopathy r/t cefepime and elevated ammonia - Will restart AC when able and d/c aspirin at that time - Continue lactulose, aspirin (4) Severe protein-calorie malnutrition Code(s): E43 - UNSPECIFIED SEVERE PROTEIN-CALORIE MALNUTRITION Comment: - NG for meds and tube feedings - Pending swallow eval (5) UTI (urinary tract infection) Comment: - York catheter-related, present on admission - Urine culture growing Klebsiella - York changed 04/27 - Continue ceftriaxone (6) Septic shock Code(s): A41.9 - SEPSIS, UNSPECIFIED ORGANISM; R65.21 - SEVERE SEPSIS WITH SEPTIC SHOCK Comment: - Resolved - Septic shock on admission with tachycardia, tachypnea, elevated lactic, and hypotensive requiring pressors - Source is cholangitis and UTI (7) Thrombocytopenia Code(s): D69.6 - THROMBOCYTOPENIA, UNSPECIFIED Comment: - Platelets trending down since admission - Suspect secondary to sepsis - No evidence of bleeding (8) Anemia Code(s): D64.9 - ANEMIA, UNSPECIFIED Comment: - New since admission - Suspect secondary to sepsis, but will check stool occult (9) Acute renal failure superimposed on stage 3 chronic kidney disease Code(s): N17.9 - ACUTE KIDNEY FAILURE, UNSPECIFIED; N18.3 - CHRONIC KIDNEY DISEASE, STAGE 3 (MODERATE) Comment: - Improved since admission, but creatinine remains elevated from baseline of 1.1 -1.2 - Suspected secondary to sepsis and hypotension (10) Elevated troponin Code(s): R79.89 - OTHER SPECIFIED ABNORMAL FINDINGS OF BLOOD CHEMISTRY Comment : - Peaked at 0.61 - No EKG changes or reports of CP - Suspect demand ischemia in the setting of severe sepsis and afib with RVR (11) Atrial fibrillation/flutter Code(s): I48.91 - UNSPECIFIED ATRIAL FIBRILLATION; I48.92 - UNSPECIFIED ATRIAL FLUTTER Comment: - Intermittent RVR, possibly corresponding with episodes of pain - Will start AC as soon as possible, but platelet count remains low - Continue metoprolol (increase from 25mg to 37.5mg BID) (12) Cervical spondylosis with myelopathy Code(s): M47.12 - OTHER SPONDYLOSIS WITH MYELOPATHY, CERVICAL REGION Comment: - Soft collar when OOB or ambulating (13) Crohn's colitis Code(s): K50.10 - CROHN'S DISEASE OF LARGE INTESTINE WITHOUT COMPLICATIONS Comment: - Continue prednisone (14) HTN (hypertension) Code(s): I10 - ESSENTIAL (PRIMARY) HYPERTENSION Comment: - Normotensive - Continue metoprolol (15) Chronic indwelling York catheter Code(s): Z96.0 - PRESENCE OF UROGENITAL IMPLANTS Comment: - Secondary to chronic urinary retention - York changed 04/27 (16) Peripheral neuropathy Code(s): G62.9 - POLYNEUROPATHY, UNSPECIFIED Comment: - Continue gabapentin (17) GERD (gastroesophageal reflux disease) Code(s): K21.9 - GASTRO-ESOPHAGEAL REFLUX DISEASE WITHOUT ESOPHAGITIS Comment : - Continue pantoprazole (18) DVT prophylaxis Code(s): Z29.9 - ENCOUNTER FOR PROPHYLACTIC MEASURES, UNSPECIFIED Comment: - Lovenox (19) Full code status Code(s): Z78.9 - OTHER SPECIFIED HEALTH STATUS Comment: Status and Disposition: Inpatient. Will likely need YARIEL when stable for discharge. Attending: Rosangela Hastings
[2019-04-28] MEDS ORDERED: Enoxaparin(*) 40 MG/0.4 ML SYR SUBCUT SCH (18:00)
[2019-04-28] MEDS ORDERED: Enoxaparin(*) 30 MG/0.3 ML SYR SUBCUT SCH (18:00)
[2019-04-28] MEDS: Morphine INJ* 2 MG/ML 1 ML SYRINGE (TWO MG - NEW SYRINGE VERSION) IV PRN ×2 (18:12→23:44)
[2019-04-28] MEDS ORDERED: Metoprolol Tartrate TAB* 25 MG PO SCH (21:00)
[2019-04-29] MEDS: Metoprolol Tartrate IV* 1 MG/ML 5 ML VIAL IV PRN (03:16)
[2019-04-29 04:58] LABS: Hematocrit 31 % (35-47); Hemoglobin 10.4 g/dL (12.0-16.0); Mean Corpuscular HGB Conc 33 g/dL (31-36); Mean Corpuscular Hemoglobin 32 pg (27-31); Mean Corpuscular Volume 96 fL (80-97); Mean Platelet Volume 11.1 fL (7.4-10.4); Platelet Count 72 10^3/uL (150-450); Red Blood Count 3.28 10^6 /uL (3.70-4.87); Red Cell Distribution Width 16 % (10-15); White Blood Count 12.7 10^3/uL (3.5-10.8)
[2019-04-29 05:03] LABS: Albumin 2.7 g/dL (3.2-5.2); Albumin/Globulin Ratio 1.2 (1-3); BUN/Creatinine Ratio 28.1 (8-20); EGFR African American 41.8 (>60); EGFR Non-African American 34.6 (>60); Globulin 2.2 g/dL (2-4); Potassium 3.9 mmol/L (3.5-5.0); Total Protein 4.9 g/dL (6.4-8.9)
[2019-04-29 05:40] LABS: ABS Eosinophils 0.1 10^3/ul (0-0.6); ABS Lymphocytes 0.7 10^3/ul (1.0-4.8); ABS Monocytes 0.7 10^3/ul (0-0.8); ABS Neutrophils 11.2 10^3/ul (1.5-7.7); Eosinophil % 0.5 %; Lymphocyte % 5.4 %; Nucleated Red Blood Cells % 0.2
[2019-04-29] MEDS ORDERED: Pantoprazole TAB * 40 MG TAB PO SCH (09:00)
[2019-04-29] MEDS: Metoprolol Tartrate TAB* 25 MG PO SCH ×2 (10:13→20:43)
[2019-04-29] MEDS: Gabapentin CAP(*) 100 MG PO SCH ×2 (10:19→20:43)
[2019-04-29] MEDS: Lansoprazole SUSP* ORALSYR 3 MG/ML G TUBE SCH (10:20)
--- NOTE | 2019-04-29 14:28 | PN ---
Subjective Date of Service: 04/29/19 Interval History: Ms. Perry is feeling fine today. She offers no complaints. Sounds to be moaning in pain, but when asked about pain, repeatedly denies. Denies CP, SOB, abdominal pain. No concerns from nursing. Family History: Unchanged from Admission Social History: Unchanged from Admission Past Medical History: Unchanged from Admission Objective Active Medications: Bisacodyl (Dulcolax Supp*) 10 mg [place] DAILY PRN CONSTIPATION Enoxaparin Sodium (Lovenox(*)) 30 mg SUBCUT Q24H TORY Gabapentin (Neurontin Cap(*)) 100 mg PO BID TORY Ceftriaxone Sodium 2 gm/ (Sodium Chloride) 100 mls @ 200 mls/hr IVPB Q24H TORY Lactulose (Lactulose*) 30 ml NG TUBE BID TORY Lansoprazole (Lansoprazole Susp* Oralsyr) 30 mg G TUBE DAILY TORY Metoprolol Tartrate (Lopressor Iv*) 5 mg IV Q6H PRN HEART RATE/PULSE GREATER THAN Metoprolol Tartrate (Lopressor Tab*) 50 mg PO BID TORY Morphine Sulfate (Morphine Inj (Syringe))*) 2 mg IV Q4H PRN PAIN - SEVERE Ondansetron HCl (Zofran Inj*) 4 mg IV Q6H PRN NAUSEA Oxycodone HCl (Roxycodone Tab*) 5 mg PO Q6H PRN PAIN - MODERATE Polyethylene Glycol/Electrolytes (Miralax (17 Gm Dose Sam)) 17 gm PO DAILY PRN CONSTIPATION Prednisone (Deltasone 5 Mg Tab) 5 mg PO MOWEFR [facility], 1928–1983 Vital Signs - 8 hr 04/29/19 04/29/19 04/29/19 07:15 07:30 10:19 Temperature 99.4 F Pulse Rate 117 Respiratory 16 16 18 Rate Blood Pressure 133/72 (mmHg) O2 Sat by Pulse 100 Oximetry Oxygen Devices in Use Now: Nasal Cannula - 2L Appearance: Elderly female lying in bed moaning, but in NAD Ears/Nose/Mouth/Throat: Mucous Membranes Moist Neck: NL Appearance and Movements; NL JVP, Trachea Midline Respiratory: Symmetrical Chest Expansion and Respiratory Effort, Clear to Auscultation Cardiovascular: NL Sounds; No Murmurs; No JVD, - - Irregular Abdominal: NL Sounds; No Tenderness; No Distention Extremities: No Edema Neurological: - - Oriented to self, place Lines/Tubes/Other Access: Clean, Dry and Intact Peripheral IV Result Diagrams: 04/29/19 04:28 04/29/19 04:28 Assess/Plan/Problems-Billing Assessment: Ms. Perry is a 79 yo F with PMH of aflutter, melanoma, Crohn's, GERD, neuropathy, HTN, chronic York d/t urinary retention, pressure ulcers; presented with spetic shock requiring pressors, with a suspect source of cholangitis. - Patient Problems (1) Cholangitis Code(s): K83.09 - OTHER CHOLANGITIS Comment: - CT on admission showing choledocholithiasis - Appreciate GI consult - ERCP 04/23: 3 stones delivered, 1 retained, CBD stent placed - Transaminitis improving - Will need outpatient follow up with Dr. Lima and likely cholecystectomy - Continue ceftriaxone (day 09/18) (2) Bacteremia Code(s): R78.81 - BACTEREMIA Comment: - BC positive for Klebsiella and E. coli - Survelliance cultures NTD - Continue ceftriaxone (day 09/18) (3) Toxic metabolic encephalopathy Code(s): G92 - TOXIC ENCEPHALOPATHY Comment: - Typically oriented and living alone, but has been altered and drowsy this admission - Code Long 04/24 d/t word finding difficulty; was deemed not a candidate for tPA - Appreciate Neuro consult - MRI brain unremarkable - EEG showing findings consistent with metabolic encephalopathy; also did not improve with benzos, so seizures have been ruled out - Suspected encephalopathy r/t cefepime and elevated ammonia - Aspirin stopped when AC restarted - Continue lactulose (4) Severe protein-calorie malnutrition Code(s): E43 - UNSPECIFIED SEVERE PROTEIN-CALORIE MALNUTRITION Comment: - Swallow eval today: pureed texture, thin liquids okay - NG for tube feedings; will try to wean off tube feedings if she is tolerating PO intake over the next 1-2 days (5) UTI (urinary tract infection) Comment: - York catheter-related, present on admission - Urine culture growing Klebsiella - York changed 04/27 - Continue ceftriaxone (6) Septic shock Code(s): A41.9 - SEPSIS, UNSPECIFIED ORGANISM; R65.21 - SEVERE SEPSIS WITH SEPTIC SHOCK Comment: - Resolved - Septic shock on admission with tachycardia, tachypnea, elevated lactic, and hypotensive requiring pressors - Source is cholangitis and UTI (7) Thrombocytopenia Code(s): D69.6 - THROMBOCYTOPENIA, UNSPECIFIED Comment: - Platelets trending down since admission - Suspect secondary to sepsis - No evidence of bleeding, but stool occult was positive (8) Anemia Code(s): D64.9 - ANEMIA, UNSPECIFIED Comment: - New since admission - Suspect secondary to sepsis - Stool occult positive without obvious or melana BRBPR (9) Acute renal failure superimposed on stage 3 chronic kidney disease Code(s): N17.9 - ACUTE KIDNEY FAILURE, UNSPECIFIED; N18.3 - CHRONIC KIDNEY DISEASE, STAGE 3 (MODERATE) Comment: - Improved since admission, but creatinine remains elevated from baseline of 1.1 -1.2 - Suspected secondary to sepsis and hypotension (10) Elevated troponin Code(s): R79.89 - OTHER SPECIFIED ABNORMAL FINDINGS OF BLOOD CHEMISTRY Comment : - Peaked at 0.61 - No EKG changes or reports of CP - Suspect demand ischemia in the setting of severe sepsis and afib with RVR (11) Atrial fibrillation/flutter Code(s): I48.91 - UNSPECIFIED ATRIAL FIBRILLATION; I48.92 - UNSPECIFIED ATRIAL FLUTTER Comment: - Intermittent RVR, possibly corresponding with episodes of pain - GI okay with restarting AC - Continue metoprolol (increased to 50 mg BID); resume Xarelto and monitor H&H (12) Cervical spondylosis with myelopathy Code(s): M47.12 - OTHER SPONDYLOSIS WITH MYELOPATHY, CERVICAL REGION Comment: - Soft collar when OOB or ambulating (13) Crohn's colitis Code(s): K50.10 - CROHN'S DISEASE OF LARGE INTESTINE WITHOUT COMPLICATIONS Comment: - Continue prednisone (14) HTN (hypertension) Code(s): I10 - ESSENTIAL (PRIMARY) HYPERTENSION Comment: - Normotensive - Continue metoprolol (15) Chronic indwelling York catheter Code(s): Z96.0 - PRESENCE OF UROGENITAL IMPLANTS Comment: - Secondary to chronic urinary retention - York changed 04/27 (16) Peripheral neuropathy Code(s): G62.9 - POLYNEUROPATHY, UNSPECIFIED Comment: - Continue gabapentin (17) GERD (gastroesophageal reflux disease) Code(s): K21.9 - GASTRO-ESOPHAGEAL REFLUX DISEASE WITHOUT ESOPHAGITIS Comment : - Continue pantoprazole (18) DVT prophylaxis Code(s): Z29.9 - ENCOUNTER FOR PROPHYLACTIC MEASURES, UNSPECIFIED Comment: - Rachele (19) Full code status Code(s): Z78.9 - OTHER SPECIFIED HEALTH STATUS Comment: Status and Disposition: Inpatient. Will likely need YARIEL when stable for discharge. Attending: Abhi [address]
[2019-04-29] MEDS: cefTRIAXone(*) 2 GM in NS 0.9% 100 ML* 100 ML IVPB SCH (14:50)
[2019-04-30 06:30] LABS: Hematocrit 32 % (35-47); Hemoglobin 10.6 g/dL (12.0-16.0); Mean Corpuscular HGB Conc 33 g/dL (31-36); Mean Corpuscular Hemoglobin 31 pg (27-31); Mean Corpuscular Volume 95 fL (80-97); Mean Platelet Volume 9.6 fL (7.4-10.4); Platelet Count 84 10^3/uL (150-450); Red Blood Count 3.37 10^6 /uL (3.70-4.87); Red Cell Distribution Width 16 % (10-15); White Blood Count 14.8 10^3/uL (3.5-10.8)
[2019-04-30 06:39] LABS: BUN/Creatinine Ratio 28.3 (8-20); EGFR African American 56.2 (>60); EGFR Non-African American 46.4 (>60); Potassium 3.4 mmol/L (3.5-5.0)
[2019-04-30 07:35] LABS: ABS Lymphocytes 0.7 10^3/ul (1.0-4.8); ABS Monocytes 0.7 10^3/ul (0-0.8); ABS Neutrophils 13.3 10^3/ul (1.5-7.7); Eosinophil % 0.2 %; Lymphocyte % 4.5 %
[2019-04-30] MEDS: Lansoprazole SUSP* ORALSYR 3 MG/ML PO SCH (09:50)
[2019-04-30] MEDS: Gabapentin CAP(*) 100 MG PO SCH ×2 (09:52→21:25)
[2019-04-30] MEDS: Metoprolol Tartrate TAB* 25 MG PO SCH ×2 (09:52→21:25)
[2019-04-30] MEDS: Rivaroxaban TAB(*) 15 MG PO SCH (09:53)
--- NOTE | 2019-04-30 14:37 | CONSULT ---
Palliative / Hospice Consult Ordering Provider: Mari Sorensen - PCP-Madhav Referal Reason: Goals of care/dulcolax, PEG & lactulose/oxy & MS - Subjective Code Status: DNR Advance Directives Location: No Advance Directives MOLST Part A Completed: Yes - updated on chart MOLST Part E Completed:: Yes - updated on chart - History or Present Illness History or Present Illness: 79yo female with Crohn's disease on immunosupression presents to ER with abdominal pain, nausea and weakness. PMH is significant for melanoma 03/24/13, cachexia, Crohn's disease(mercaptopurine & prednisone), arthritis, neuropathy, GERD, HTN, urninary retention, h/o aflutter on xarelto, h/o L foot ulcer and L gluteal decubitus. 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 Studies Abd/pel CT-cholelithasis with distended GB , dilatation of CBD with calculi, ? impaction, bilateral nonobstucting renal calci with mild hydronephrosis, EKG-afib, GB U/S-mild hepatomegaly, biliary distention, & CBD dilated, distended GB with sludge and stones, CXR-cardiomegaly, brain CT-no change from 2017, mild chronic ischemic white matter change, ECHO-EF 60-65% severe TR, brain MRI-no acute findings, brain CT-no acute finding, mild chronic small vessel ishcemic disease severe cervical spondyliosis with myelopathy, MRA-limited due to motion, otherwise neg , EEG-abn, mild-mod diffuse encephalopathy, abd xray-gas distended loop of bowel , brain CT-no acute finding, CXR#2 unchanged, ECHO-no defect no patent foramen ovale, wbc 12.7 was 79, H/H 10.4/31, plt 72, BUN/Cr 41/1.46, egfr 34.6, alb 2.7 , CRP 101.57, INR 1.48 on AC, UC K. Variicola and BC-E. Coli & K. Variicola. Pt admitted to the ICU with septic shock , choledocholithasis and HERLINDA. Pt had ERCP 04/23, 04/24 code bautista was called for aphasia and confusion stroked ruled out, transferred to . All history is from pt and medical record. Lab Values: Abnormal Lab Results 04/30/19 04/30/19 06:09 06:09 WBC 14.8 H RBC 3.37 L Hgb 10.6 L Hct 32 L MCV 95 MCH 31 MCHC 33 RDW 16 H Plt Count 84 L MPV 9.6 Neut % (Auto) 90.1 Lymph % (Auto) 4.5 Bath % (Auto) 5.0 Eos % (Auto) 0.2 Baso % (Auto) 0.2 Absolute Neuts (auto) 13.3 H Absolute Lymphs (auto) 0.7 L Absolute Monos (auto) 0.7 Absolute Eos (auto) 0.0 Absolute Basos (auto) 0.0 Absolute Nucleated RBC 0.0 Nucleated RBC % 0.0 Sodium 149 H Potassium 3.4 L Chloride 115 H Carbon Dioxide 23 Anion Gap 11 BUN 32 H Creatinine 1.13 H Est GFR ( Amer) 56.2 Est GFR (Non-Af Amer) 46.4 BUN/Creatinine Ratio 28.3 H Glucose 147 H Calcium 8.0 L Laboratory Last Values WBC 14.8 10^3/uL (3.5-10.8) H 04/30/19 06:09 RBC 3.37 10^6 /uL (3.70-4.87) L 04/30/19 06:09 Hgb 10.6 g/dL (12.0-16.0) L 04/30/19 06:09 Hct 32 % (35-47) L 04/30/19 06:09 MCV 95 fL (80-97) 04/30/19 06:09 MCH 31 pg (27-31) 04/30/19 06:09 MCHC 33 g/dL (31-36) 04/30/19 06:09 RDW 16 % (10-15) H 04/30/19 06:09 Plt Count 84 10^3/uL (150-450) L 04/30/19 06:09 MPV 9.6 fL (7.4-10.4) 04/30/19 06:09 Neut % (Auto) 90.1 % 04/30/19 06:09 Lymph % (Auto) 4.5 % 04/30/19 06:09 Bath % (Auto) 5.0 % 04/30/19 06:09 Eos % (Auto) 0.2 % 04/30/19 06:09 Baso % (Auto) 0.2 % 04/30/19 06:09 Absolute Neuts (auto) 13.3 10^3/ul (1.5-7.7) H 04/30/19 06:09 Absolute Lymphs (auto) 0.7 10^3/ul (1.0-4.8) L 04/30/19 06:09 Absolute Monos (auto) 0.7 10^3/ul (0-0.8) 04/30/19 06:09 Absolute Eos (auto) 0.0 10^3/ul (0-0.6) 04/30/19 06:09 Absolute Basos (auto) 0.0 10^3/ul (0-0.2) 04/30/19 06:09 Absolute Nucleated RBC 0.0 10^3/ul 04/30/19 06:09 Immature Gran % 1.0 % (0-9) 04/27/19 09:58 Neutrophils % 84.0 % 04/27/19 09:58 Band Neutrophils % 1.0 % (0-8) 04/27/19 09:58 Lymphocytes % 10.0 % 04/27/19 09:58 Reactive Lymphs % 2.0 % (0-6) 04/27/19 09:58 Monocytes % 3.0 % 04/27/19 09:58 Metamyelocytes % 1.0 % (0-2) 04/22/19 04:45 Nucleated RBC % 0.0 04/30/19 06:09 Nucleated RBCs/100 WBC 2.0 (0-0) H 04/27/19 09:58 Normal RBC Morphology Not Reportable 04/27/19 09:58 Polychromasia 1+ 04/27/19 09:58 Microcytosis 1+ 04/22/19 04:45 Anisocytosis 1+ 04/27/19 09:58 [place] Cells 1+ 04/23/19 05:00 Elliptocytes 1+ 04/23/19 05:00 Schistocytes Absent 04/23/19 09:54 Hem Pathologist Commnt 04/27/19 09:58 Plt Count 159 10^3/ul (150-450) 04/23/19 09:54 INR (Anticoag Therapy) 1.48 (0.82-1.09) H 04/28/19 04:30 APTT 36.2 seconds (26.0-38.0) 04/28/19 04:30 Fibrinogen 345.3 mg/dL (110.8-404.3) 04/28/19 04:30 D-Dimer, Quantitative > 1050 ng/mL (Less Than 230) H 04/23/19 09:54 Coag Pathologist Com 04/23/19 09:54 Patient Temperature Not Reportable 04/22/19 00:30 ABG pH 7.29 (7.35-7.45) L 04/22/19 00:30 ABG pH (Temp Correct) Not Reportable 04/22/19 00:30 ABG pCO2 23 mmHg (35-45) L 04/22/19 00:30 ABG pCO2 (Temp Corrct Not Reportable 04/22/19 00:30 ABG pO2 142 mmHg (80-100) H 04/22/19 00:30 ABG pO2 (Temp Correct Not Reportable 04/22/19 00:30 ABG HCO3 14.4 mmol/L (19-31) L 04/22/19 00:30 ABG O2 Saturation 99.3 % (94.0-98.0) H 04/22/19 00:30 ABG Base Excess -13.5 mmol/L (-2.0-2.0) L 04/22/19 00:30 Respiration Rate Not Reportable 04/22/19 00:30 O2 Delivery Device N/c 04/22/19 00:30 Ventilator Type Not Reportable 04/22/19 00:30 Vent Mode Not Reportable 04/22/19 00:30 FiO2 Not Reportable 04/22/19 00:30 Inspiratory Time Not Reportable 04/22/19 00:30 PEEP Not Reportable 04/22/19 00:30 Pressure Support Not Reportable 04/22/19 00:30 Pressure Control Not Reportable 04/22/19 00:30 EPAP Not Reportable 04/22/19 00:30 IPAP Not Reportable 04/22/19 00:30 BiPAP Not Reportable 04/22/19 00:30 Sodium 149 mmol/L (135-145) H 04/30/19 06:09 Potassium 3.4 mmol/L (3.5-5.0) L 04/30/19 06:09 Chloride 115 mmol/L (101-111) H 04/30/19 06:09 Carbon Dioxide 23 mmol/L (22-32) 04/30/19 06:09 Anion Gap 11 mmol/L (2-11) 04/30/19 06:09 BUN 32 mg/dL (6-24) H 04/30/19 06:09 Creatinine 1.13 mg/dL (0.51-0.95) H 04/30/19 06:09 Est GFR ( Amer) 56.2 (>60) 04/30/19 06:09 Est GFR (Non-Af Amer) 46.4 (>60) 04/30/19 06:09 BUN/Creatinine Ratio 28.3 (8-20) H 04/30/19 06:09 Glucose 147 mg/dL (70-100) H 04/30/19 06:09 POC Glucose (mg/dL) 128 mg/dL (70-100) H 04/25/19 10:04 Hemoglobin A1c 6.2 % (4.0-5.6) H 04/28/19 04:30 Lactic Acid 1.7 mmol/L (0.5-2.0) 04/22/19 10:48 Calcium 8.0 mg/dL (8.6-10.3) L 04/30/19 06:09 Phosphorus 3.2 mg/dL (2.5-5.0) 04/28/19 04:30 Magnesium 2.3 mg/dL (1.9-2.7) 04/28/19 04:30 Total Bilirubin 1.00 mg/dL (0.2-1.0) 04/29/19 04:28 AST 35 U/L (13-39) 04/29/19 04:28 ALT 41 U/L (7-52) 04/29/19 04:28 Alkaline Phosphatase 203 U/L (34-104) H 04/29/19 04:28 Ammonia 58 mcmol/L (16-53) H 04/27/19 09:58 Troponin I 0.55 ng/mL (<0.03) H* 04/27/19 08:34 C-Reactive Protein 101.57 mg/L (<8.01) H 04/21/19 20:05 Total Protein 4.9 g/dL (6.4-8.9) L 04/29/19 04:28 Albumin 2.7 g/dL (3.2-5.2) L 04/29/19 04:28 Globulin 2.2 g/dL (2-4) 04/29/19 04:28 Albumin/Globulin Ratio 1.2 (1-3) 04/29/19 04:28 Lipase 76 U/L (11.0-82.0) 04/21/19 20:05 Vitamin B12 > 1450 pg/mL (180-914) H 04/25/19 06:10 TSH 2.31 mcIU/mL (0.34-5.60) 04/25/19 06:10 Cortisol 15.68 mcg/dL 04/26/19 21:48 Urine Color Juany 04/25/19 02:25 Urine Appearance Clear 04/25/19 02:25 Urine pH 5.0 (5-9) 04/25/19 02:25 Ur Specific [place] 1.015 (1.010-1.030) 04/25/19 02:25 Urine Protein Negative (Negative) 04/25/19 02:25 Urine Ketones Negative (Negative) 04/25/19 02:25 Urine Blood Negative (Negative) 04/25/19 02:25 Urine Nitrate Negative (Negative) 04/25/19 02:25 Urine Bilirubin Negative (Negative) 04/25/19 02:25 Urine Urobilinogen Negative (Negative) 04/25/19 02:25 Ur Leukocyte Esterase Negative (Negative) 04/25/19 02:25 Urine WBC (Auto) 3+(>20/hpf) (Absent) A 04/21/19 22:43 Urine RBC (Auto) 3+(>10/hpf) (Absent) A 04/21/19 22:43 Urine Bacteria 1+ (Absent) A 04/21/19 22:43 Urine Glucose Negative (Negative) 04/25/19 02:25 Urine Ascorbic Acid * (Negative) A 04/25/19 02:25 Blood Type A Positive 04/21/19 20:49 Antibody Screen Negative 04/21/19 20:49 - Objective Active Medications: Bisacodyl (Dulcolax Supp*) 10 mg MS DAILY PRN PRN Reason: CONSTIPATION Gabapentin (Neurontin Cap(*)) 100 mg PO BID [facility] Last Admin: 04/30/19 09:52 Dose: 100 mg Ceftriaxone Sodium 2 gm/ (Sodium Chloride) 100 mls @ 200 mls/hr IVPB Q24H [facility] Last Admin: 04/29/19 14:50 Dose: 200 mls/hr Lactulose (Lactulose*) 15 ml PO BID [facility] Stop: 05/01/19 20:59 Last Admin: 04/30/19 09:50 Dose: 15 ml Lansoprazole (Lansoprazole Susp* Oralsyr) 30 mg PO DAILY [facility] Last Admin: 04/30/19 09:50 Dose: 30 mg Metoprolol Tartrate (Lopressor Iv*) 5 mg IV Q6H PRN PRN Reason: HEART RATE/PULSE GREATER THAN: Last Admin: 04/29/19 03:16 Dose: 5 mg Metoprolol Tartrate (Lopressor Tab*) 50 mg PO BID [facility] Last Admin: 04/30/19 09:52 Dose: 50 mg Morphine Sulfate (Morphine Inj (Syringe))*) 2 mg IV Q4H PRN PRN Reason: PAIN - SEVERE Last Admin: 04/28/19 23:44 Dose: 2 mg Ondansetron HCl (Zofran Inj*) 4 mg IV Q6H PRN PRN Reason: NAUSEA Oxycodone HCl (Roxycodone Tab*) 5 mg PO Q6H PRN PRN Reason: PAIN - MODERATE Polyethylene Glycol/Electrolytes (Miralax (17 Gm Dose Sam)) 17 gm PO DAILY PRN PRN Reason: CONSTIPATION Last Admin: 04/23/19 17:25 Dose: 17 gm Prednisone (Deltasone 5 Mg Tab) 5 mg PO MOWEFR [facility] Last Admin: 04/30/19 09:53 Dose: 5 mg Rivaroxaban (Xarelto(*)) 15 mg PO DAILY [facility] Last Admin: 04/30/19 09:53 Dose: 15 mg Vital Signs: Vital Signs: Temp Pulse Resp BP Pulse Ox 98.2 F 108 22 142/81 100 04/30/19 11:15 04/30/19 11:15 04/30/19 13:42 04/30/19 11:15 04/30/19 11:15 Patient Weight: Weight 53.5 kg Intake and Output: Intake & Output 04/28/19 04/29/19 04/30/19 05/01/19 06:59 06:59 06:59 06:59 Intake Total 43 0 2456 30 Output Total 1600 1725 2725 950 Balance -5751 -9304 -269 -610 Intake: IVPB 43 NS (0.9%) 43 Oral 0 0 625 30 Tube Feeding 456 Tube Feeding Flush Amount 1375 Output: Urine 0 [place] 1600 1725 2725 950 Other: Estimated Void Small Large # Bowel Movements 1 2 1 Estimated Stool Amount Medium Large Medium ADLs: Meal Record Start: 04/22/19 00: 31 Freq: 09,13,18 Status: Complete Protocol: Created 04/22/19 00:31 System (Rec: 04/22/19 00:31 System ICU-C11) Document 04/22/19 09:00 [id number] (Rec: 04/22/19 10:42 IYJ5549 ICU-C15) Document 04/22/19 13:00 EXY8611 (Rec: 04/22/19 13:20 KTE8262 ICU-C15) Document 04/22/19 18:38 JZF5799 (Rec: 04/22/19 18:38 KPL0851 ICU-C15) Document 04/23/19 09:10 IWX8393 (Rec: 04/23/19 09:10 JQB8268 ICU-C12) Document 04/23/19 15:33 UIL0346 (Rec: 04/23/19 15:33 HXI7430 ICU-C12) Document 04/23/19 18:31 GZS0032 (Rec: 04/23/19 18:32 GOH2337 ICU-C12) Document 04/24/19 09:00 WAN7782 (Rec: 04/24/19 09:29 DNG9662 ICU-C12) Document 04/24/19 13:00 HJD9384 (Rec: 04/24/19 14:08 EHT5420 ICU-C12) Document 04/25/19 09:00 DTE1838 (Rec: 04/25/19 12:42 EMJ2347 ICU-C08) Document 04/25/19 13:00 FST9143 (Rec: 04/25/19 14:44 TUQ6399 ICU-C08) Document 04/25/19 18:00 UOZ6758 (Rec: 04/25/19 20:04 LPM0137 ICU-C21) Document 04/26/19 09:00 JKY8465 (Rec: 04/26/19 12:15 RAH5471 ICU-C08) Document 04/26/19 13:00 JJD7789 (Rec: 04/26/19 15:39 GUY7780 ICU-C21) Document 04/26/19 18:00 STZ9108 (Rec: 04/26/19 18:14 GSW9653 ICU-C08) Document 04/27/19 13:00 TTD0352 (Rec: 04/27/19 14:42 FST1005 ICU-C08) ADLs: Meal Record Start: 04/27/19 16: 53 Freq: DAILY@0900,1400,1800 Status: Active Protocol: Created 04/27/19 16:53 UBN6508 (Rec: 04/27/19 16:53 RBT4899 ICU-C08) Document 04/27/19 18:00 BLZ5163 (Rec: 04/27/19 19:15 CCM3378 TELE-C11) Document 04/28/19 09:00 ADP2665 (Rec: 04/28/19 09:38 EKG8669 TELE-C13) Document 04/28/19 13:48 FLF3957 (Rec: 04/28/19 13:48 SVO8086 TELE-C09) Document 04/28/19 18:00 LKV0699 (Rec: 04/28/19 20:34 CMR5887 TELE-C05) Document 04/29/19 13:42 VHQ4260 (Rec: 04/29/19 13:42 XPG3929 TELE-C13) Document 04/29/19 18:00 WRL7467 (Rec: 04/29/19 20:57 FZM3071 TELE-C07) Document 04/30/19 09:00 MXS2665 (Rec: 04/30/19 10:59 ETE0297 TELE-C11) Intake and Output Start: 04/21/19 19: 43 Freq: Status: Complete Protocol: Created 04/21/19 19:43 System (Rec: 04/21/19 19:43 System ED-C05) Document 04/22/19 00:36 TML8139 (Rec: 04/22/19 00:37 OCS5239 EDRM-C12) Intake and Output Start: 04/22/19 00: 31 Freq: 06,14,2200 Status: Complete Protocol: Created 04/22/19 00:31 System (Rec: 04/22/19 00:31 System ICU-C11) Document 04/22/19 02:00 LXW6515 (Rec: 04/22/19 02:08 ARB5742 ICU-C15) Document 04/22/19 03:00 MNM5533 (Rec: 04/22/19 03:18 KSF0853 ICU-C15) Document 04/22/19 05:00 JTI7394 (Rec: 04/22/19 05:10 BWS0601 ICU-C15) Document 04/22/19 06:00 NQK9303 (Rec: 04/22/19 06:14 IHD3397 ICU-C15) Document 04/22/19 07:00 YTO6674 (Rec: 04/22/19 07:54 XUK8257 ICU-C15) Document 04/22/19 07:54 PDI6405 (Rec: 04/22/19 07:54 TGE2418 ICU-C15) Document 04/22/19 09:00 HSC3856 (Rec: 04/22/19 09:03 JYW6584 ICU-C15) Document 04/22/19 10:00 YTX4267 (Rec: 04/22/19 10:42 ZMN4151 ICU-C15) Document 04/22/19 10:41 GPU8528 (Rec: 04/22/19 10:42 QAS5255 ICU-C15) Document 04/22/19 12:00 INT8267 (Rec: 04/22/19 12:17 WYX7399 ICU-C15) Document 04/22/19 13:48 SDM3183 (Rec: 04/22/19 13:48 ATU9667 ICU-C15) Document 04/22/19 15:11 WZR8285 (Rec: 04/22/19 15:12 NPC1135 ICU-C15) Document 04/22/19 17:00 XBJ3389 (Rec: 04/22/19 17:48 JEX9286 ICU-C15) Document 04/22/19 18:18 KPP6558 (Rec: 04/22/19 18:18 SDN4003 ICU-C15) Document 04/22/19 20:00 HLS1499 (Rec: 04/22/19 20:22 MMW2190 ICU-C12) Document 04/22/19 21:00 SMU9418 (Rec: 04/22/19 21:03 SWA5124 ICU-C12) Document 04/22/19 22:00 XOB1735 (Rec: 04/22/19 22:05 IUE7500 ICU-C12) Document 04/22/19 23:55 RRQ4953 (Rec: 04/22/19 23:55 EWF8594 ICU-C12) Document 04/23/19 01:00 HBF7172 (Rec: 04/23/19 01:09 RUL0890 ICU-C12) Document 04/23/19 02:00 QUF2339 (Rec: 04/23/19 02:09 FUX2270 ICU-C12) Document 04/23/19 05:08 MYG0045 (Rec: 04/23/19 05:08 EMP4764 ICU-M27) Document 04/23/19 06:36 PJR7051 (Rec: 04/23/19 06:36 SKX6966 ICU-C12) Document 04/23/19 07:00 MCA5313 (Rec: 04/23/19 07:53 AAD4199 ICU-C12) Document 04/23/19 08:00 KHB4535 (Rec: 04/23/19 09:09 DYA8393 ICU-C12) Document 04/23/19 09:00 DJA7366 (Rec: 04/23/19 09:09 TCH1651 ICU-C12) Document 04/23/19 10:00 ETZ2549 (Rec: 04/23/19 11:26 ZFX1101 ICU-C12) Document 04/23/19 11:00 EUO6131 (Rec: 04/23/19 11:26 XJN8750 ICU-C12) Document 04/23/19 15:00 NAI3830 (Rec: 04/23/19 15:29 JDG7076 ICU-C12) Document 04/23/19 16:00 ZYB0335 (Rec: 04/23/19 16:30 TAY7678 ICU-C12) Document 04/23/19 17:00 VCB1432 (Rec: 04/23/19 18:21 PEU5012 ICU-C12) Document 04/23/19 18:00 NVC5092 (Rec: 04/23/19 18:21 YLR5051 ICU-C12) Document 04/23/19 19:00 BKH3973 (Rec: 04/23/19 19:20 SWY6019 ICU-C12) Document 04/23/19 20:00 JKB9716 (Rec: 04/23/19 23:16 NHC8786 ICU-C12) Document 04/23/19 21:00 EAO1799 (Rec: 04/23/19 23:20 OWS3461 ICU-C12) Document 04/23/19 22:00 GBZ5037 (Rec: 04/23/19 23:21 XJT9391 ICU-C12) Document 04/23/19 23:00 DNG4037 (Rec: 04/23/19 23:22 JJL3529 ICU-C12) Document 04/24/19 00:00 NRK2553 (Rec: 04/24/19 01:06 PHT5525 ICU-C12) Document 04/24/19 01:00 BIH1746 (Rec: 04/24/19 01:08 HLM7795 ICU-C12) Document 04/24/19 02:00 ZSK9894 (Rec: 04/24/19 02:15 EOK5930 ICU-C12) Document 04/24/19 03:00 YQG5425 (Rec: 04/24/19 03:06 AOG1937 ICU-C12) Document 04/24/19 04:00 AXG0388 (Rec: 04/24/19 04:10 CHD4681 ICU-C12) Document 04/24/19 05:00 GGJ6794 (Rec: 04/24/19 05:32 WJC3986 ICU-C12) Document 04/24/19 05:55 JWC1957 (Rec: 04/24/19 05:56 ZQN0191 ICU-C12) Document 04/24/19 07:00 PGO6985 (Rec: 04/24/19 08:12 HBN7394 ICU-C12) Document 04/24/19 08:00 ECN4051 (Rec: 04/24/19 09:29 TRJ1472 ICU-C12) Document 04/24/19 09:00 ICN9025 (Rec: 04/24/19 09:30 OYH7746 ICU-C12) Document 04/24/19 10:00 FQT8529 (Rec: 04/24/19 10:36 CIZ9021 ICU-C12) Document 04/24/19 11:00 AQH2401 (Rec: 04/24/19 11:16 OJT8347 ICU-C12) Document 04/24/19 12:00 TGJ1579 (Rec: 04/24/19 14:07 EPJ3326 ICU-C12) Document 04/24/19 13:00 GLU6654 (Rec: 04/24/19 14:08 ZWU4336 ICU-C12) Document 04/24/19 14:00 ASN5435 (Rec: 04/24/19 14:09 CIK0351 ICU-C12) Document 04/24/19 22:00 JYD6989 (Rec: 04/24/19 23:37 PFR3810 ICU-C08) Document 04/25/19 06:00 LUG9449 (Rec: 04/25/19 06:24 UOU6376 ICU-C08) Document 04/25/19 09:27 ZNU4050 (Rec: 04/25/19 09:27 WJP5737 ICU-M19) Document 04/25/19 14:00 ZAZ0364 (Rec: 04/25/19 14:44 SIP4535 ICU-C08) Document 04/25/19 22:00 COD6279 (Rec: 04/25/19 23:26 ILH5355 ICU-M19) Document 04/26/19 05:19 TEX6006 (Rec: 04/26/19 05:20 ATN5829 ICU-M19) Document 04/26/19 14:00 CHV3706 (Rec: 04/26/19 14:26 ZPH8159 ICU-M19) Document 04/26/19 18:00 JTQ6864 (Rec: 04/27/19 08:44 HCW9674 ICU-C08) Document 04/26/19 22:00 MYD3787 (Rec: 04/26/19 22:25 XVR9879 ICU-M19) Document 04/27/19 02:31 TAK5561 (Rec: 04/27/19 02:32 RVY1819 ICU-C08) Document 04/27/19 06:00 BSG4103 (Rec: 04/27/19 06:27 XHP9992 ICU-M19) Document 04/27/19 08:00 PQY2366 (Rec: 04/27/19 08:44 BOZ6137 ICU-C08) Document 04/27/19 11:20 QSE2587 (Rec: 04/27/19 11:20 LJP8692 ICU-M19) Document 04/27/19 14:00 SEQ2752 (Rec: 04/27/19 16:45 ZNG3331 ICU-C08) Intake and Output Start: 04/27/19 16: 53 Freq: DAILY@0600,1400,2200 Status: Complete Protocol: Created 04/27/19 16:53 BWL0500 (Rec: 04/27/19 16:53 LHC8504 ICU-C08) Document 04/27/19 17:14 AQL4466 (Rec: 04/27/19 17:14 JOP4152 ICU-C08) Document 04/27/19 22:00 RVV1390 (Rec: 04/27/19 22:10 MIY2103 TELE-C11) Document 04/28/19 06:00 ANM5566 (Rec: 04/28/19 06:24 JJB8263 TELE-C05) Document 04/28/19 11:56 OHH3173 (Rec: 04/28/19 11:56 WYT5400 TELE-C09) Document 04/28/19 12:04 EPR1802 (Rec: 04/28/19 12:04 BMV9574 TELE-C03) Document 04/28/19 22:00 QGP5997 (Rec: 04/28/19 22:57 NMN4664 TELE-C05) Document 04/29/19 05:21 LGM0065 (Rec: 04/29/19 05:21 JDQ4345 TELE-C05) Document 04/29/19 11:24 MHS3079 (Rec: 04/29/19 11:24 RAJ7136 TELE-C11) Document 04/29/19 15:07 ZQX0702 (Rec: 04/29/19 15:08 RPV7223 MED-M19) Document 04/29/19 22:00 VBH1309 (Rec: 04/29/19 22:20 ALD1487 TELE-C13) Document 04/30/19 04:26 WSS4599 (Rec: 04/30/19 04:26 BUX8310 TELE-C13) Document 04/30/19 12:35 OZI8767 (Rec: 04/30/19 12:36 GKT3909 TELE-C07) Ears/Nose/Mouth/Throat: Mucous Membranes Moist Neck: NL Appearance and Movements; NL JVP, Trachea Midline Cardiovascular: NL Sounds; No Murmurs; No JVD, - - Irregular Abdominal: NL Sounds; No Tenderness; No Distention Extremities: No Edema - edema on L arm Neurological: Alert and Oriented x 3, - - Assessment Assessment: 79yo female admitted with sepsis, choledocholithiasis and HERLINDA - Plan Consult Plan (MU): Palliative Plan: Long discussion with pt about goals of care. Pt updated HCP to Andrew(son) as primary and Precious(daughter) as secondary. Discussed MOLST pt wants to be DNR/ DNI but does want a trial of BiPAP/vapotherm. Pt cared for her second who from emphysema. She is from her first and currently has a boyfriend who is requesting she visit him in [place]. Pt lives alone uses walker, neighbors bring meals and do shopping for her because she doesn't drive anymore. She wants to return home with her 2 dogs. The plan is to go to rehab at [facility] and eventually home. She has been at [facility] before after foot surgery. Cognitively this is the most alert she has bee since getting sick. Support given. Not hospice eligible. KPS 60%, PPS 50% but with rehab should improve. - Time On Unit Date of Evaluation: 04/30/19 Hospice Consult Time in: 13:00 Hospice Consult Time Out: 14:00 Hospice Consult Time Total: 60 > 50% of Time Spend In Counseling or Coordinating Care: Yes
[2019-04-30] MEDS: oxyCODONE TAB* 5 MG TAB PO PRN ×2 (14:48→21:29)
[2019-04-30] MEDS: cefTRIAXone(*) 2 GM in NS 0.9% 100 ML* 100 ML IVPB SCH (15:02)
--- NOTE | 2019-04-30 16:18 | PN ---
Subjective Date of Service: 04/30/19 Interval History: Ms. Perry is feeling much better today. She is able to talk in full sentences. She remembers not being able to say more than one or two words for the last few days, and she states she just could not get the words out. She offers no complaints. Denies CP, SOB, cough, N/V. No concerns from nursing. Family History: Unchanged from Admission Social History: Unchanged from Admission Past Medical History: Unchanged from Admission Objective Active Medications: Bisacodyl (Dulcolax Supp*) 10 mg CO DAILY PRN CONSTIPATION Gabapentin (Neurontin Cap(*)) 100 mg PO BID [facility] Ceftriaxone Sodium 2 gm/ (Sodium Chloride) 100 mls @ 200 mls/hr IVPB Q24H [facility] Lactulose (Lactulose*) 15 ml PO BID [facility] Lansoprazole (Lansoprazole Susp* Oralsyr) 30 mg PO DAILY [facility] Metoprolol Tartrate (Lopressor Iv*) 5 mg IV Q6H PRN HEART RATE/PULSE GREATER THAN Metoprolol Tartrate (Lopressor Tab*) 50 mg PO BID [facility] Morphine Sulfate (Morphine Inj (Syringe))*) 2 mg IV Q4H PRN PAIN - SEVERE Ondansetron HCl (Zofran Inj*) 4 mg IV Q6H PRN NAUSEA Oxycodone HCl (Roxycodone Tab*) 5 mg PO Q6H PRN PAIN - MODERATE Polyethylene Glycol/Electrolytes (Miralax (17 Gm Dose Sam)) 17 gm PO DAILY PRN CONSTIPATION Potassium Chloride (Klor Con Er Tab*) 20 meq PO ONCE ONE Prednisone (Deltasone 5 Mg Tab) 5 mg PO MOWEFR [facility] Rivaroxaban (Xarelto(*)) 15 mg PO DAILY [facility] Vital Signs - 8 hr 04/30/19 04/30/19 04/30/19 09:00 09:52 11:15 Temperature 98.2 F Pulse Rate 108 Respiratory 14 18 22 Rate Blood Pressure 142/81 (mmHg) O2 Sat by Pulse 100 Oximetry 04/30/19 04/30/19 13:42 14:48 Temperature Pulse Rate Respiratory 22 18 Rate Blood Pressure (mmHg) O2 Sat by Pulse Oximetry Oxygen Devices in Use Now: None Appearance: Elderly female sitting in bed in NAD Ears/Nose/Mouth/Throat: Mucous Membranes Moist Neck: NL Appearance and Movements; NL JVP, Trachea Midline Respiratory: Symmetrical Chest Expansion and Respiratory Effort, Clear to Auscultation Cardiovascular: NL Sounds; No Murmurs; No JVD, RRR Abdominal: NL Sounds; No Tenderness; No Distention Extremities: - - +2 pitting LUE Neurological: Alert and Oriented x 3 Nutrition: Taking PO's Result Diagrams: 04/30/19 06:09 04/30/19 06:09 Assess/Plan/Problems-Billing Assessment: Ms. Perry is a 79 yo F with PMH of aflutter, melanoma, Crohn's, GERD, neuropathy, HTN, chronic York d/t urinary retention, pressure ulcers; presented with spetic shock requiring pressors, with a suspect source of cholangitis. - Patient Problems (1) Cholangitis Code(s): K83.09 - OTHER CHOLANGITIS Comment: - CT on admission showing choledocholithiasis - Appreciate GI consult - ERCP 04/23: 3 stones delivered, 1 retained, CBD stent placed - Transaminitis improving - Will need outpatient follow up with Dr. Lima and likely cholecystectomy - Continue ceftriaxone (day 10/19) (2) Bacteremia Code(s): R78.81 - BACTEREMIA Comment: - BC positive for Klebsiella and E. coli - Survelliance cultures NTD - Continue ceftriaxone (day 10/19) (3) Toxic metabolic encephalopathy Code(s): G92 - TOXIC ENCEPHALOPATHY Comment: - Back to baseline mental status as of 04/29 AM - Code Long 04/24 d/t word finding difficulty; was deemed not a candidate for tPA - Appreciate Neuro consult - MRI brain unremarkable - EEG showing findings consistent with metabolic encephalopathy; also did not improve with benzos, so seizures have been ruled out - Suspected encephalopathy r/t cefepime and elevated ammonia - D/c lactulose and monitor mental status (4) Severe protein-calorie malnutrition Code(s): E43 - UNSPECIFIED SEVERE PROTEIN-CALORIE MALNUTRITION Comment: - Now tolerating PO diet - Swallow eval 04/28: pureed texture, thin liquids okay - Remove NG today (5) UTI (urinary tract infection) Comment: - York catheter-related, present on admission - Urine culture growing Klebsiella - York changed 04/27 - Continue ceftriaxone (6) Septic shock Code(s): A41.9 - SEPSIS, UNSPECIFIED ORGANISM; R65.21 - SEVERE SEPSIS WITH SEPTIC SHOCK Comment: - Resolved; still has mild leukocytosis, but this may potentially be r/t steroids - Septic shock on admission with tachycardia, tachypnea, elevated lactic, and hypotensive requiring pressors - Source is cholangitis and UTI (7) Thrombocytopenia Code(s): D69.6 - THROMBOCYTOPENIA, UNSPECIFIED Comment: - Platelets trending down since admission - Suspect secondary to sepsis - No evidence of bleeding, but stool occult was positive (8) Anemia Code(s): D64.9 - ANEMIA, UNSPECIFIED Comment: - New since admission - Suspect secondary to sepsis - Stool occult positive without obvious or melana BRBPR - H&H remains stable since AC was restarted (9) Acute renal failure superimposed on stage 3 chronic kidney disease Code(s): N17.9 - ACUTE KIDNEY FAILURE, UNSPECIFIED; N18.3 - CHRONIC KIDNEY DISEASE, STAGE 3 (MODERATE) Comment: - Improved since admission, but creatinine remains elevated from baseline of 1.1 -1.2 - Suspected secondary to sepsis and hypotension (10) Elevated troponin Code(s): R79.89 - OTHER SPECIFIED ABNORMAL FINDINGS OF BLOOD CHEMISTRY Comment : - Peaked at 0.61 - No EKG changes or reports of CP - Suspect demand ischemia in the setting of severe sepsis and afib with RVR (11) Atrial fibrillation/flutter Code(s): I48.91 - UNSPECIFIED ATRIAL FIBRILLATION; I48.92 - UNSPECIFIED ATRIAL FLUTTER Comment: - Intermittent RVR, possibly corresponding with episodes of pain - GI okay with restarting AC - Continue metoprolol (increased to 50 mg BID), Xarelto (12) Cervical spondylosis with myelopathy Code(s): M47.12 - OTHER SPONDYLOSIS WITH MYELOPATHY, CERVICAL REGION Comment: - Soft collar when OOB or ambulating (13) Crohn's colitis Code(s): K50.10 - CROHN'S DISEASE OF LARGE INTESTINE WITHOUT COMPLICATIONS Comment: - Continue prednisone (14) HTN (hypertension) Code(s): I10 - ESSENTIAL (PRIMARY) HYPERTENSION Comment: - Normotensive - Continue metoprolol (15) Chronic indwelling York catheter Code(s): Z96.0 - PRESENCE OF UROGENITAL IMPLANTS Comment: - Secondary to chronic urinary retention - York changed 04/27 (16) Peripheral neuropathy Code(s): G62.9 - POLYNEUROPATHY, UNSPECIFIED Comment: - Continue gabapentin (17) GERD (gastroesophageal reflux disease) Code(s): K21.9 - GASTRO-ESOPHAGEAL REFLUX DISEASE WITHOUT ESOPHAGITIS Comment : - Continue pantoprazole (18) DVT prophylaxis Code(s): Z29.9 - ENCOUNTER FOR PROPHYLACTIC MEASURES, UNSPECIFIED Comment: - Xarelto (19) DNR (do not resuscitate) Comment: Status and Disposition: Inpatient. Anticipate d/c to [facility] for YARIEL, likely in the next 1-2 days. Attending: Abhi St
[2019-04-30] MEDS ORDERED: Potassium Chlor TAB* 20 MEQ TAB.ER PO ONE (16:30)
[2019-05-01] MEDS: Morphine INJ* 2 MG/ML 1 ML SYRINGE (TWO MG - NEW SYRINGE VERSION) IV PRN (01:40)
[2019-05-01] MEDS: oxyCODONE TAB* 5 MG TAB PO PRN ×3 (03:11→21:08)
[2019-05-01 06:02] LABS: ABS Eosinophils 0.1 10^3/ul (0-0.6); ABS Lymphocytes 0.8 10^3/ul (1.0-4.8); ABS Monocytes 0.8 10^3/ul (0-0.8); ABS Neutrophils 13.4 10^3/ul (1.5-7.7); Eosinophil % 0.5 %; Hematocrit 29 % (35-47); Hemoglobin 9.6 g/dL (12.0-16.0); Lymphocyte % 5.4 %; Mean Corpuscular HGB Conc 34 g/dL (31-36); Mean Corpuscular Hemoglobin 32 pg (27-31); Mean Corpuscular Volume 94 fL (80-97); Mean Platelet Volume 9.7 fL (7.4-10.4); Nucleated Red Blood Cells % 0.1; Platelet Count 78 10^3/uL (150-450); Red Blood Count 3.02 10^6 /uL (3.70-4.87); Red Cell Distribution Width 15 % (10-15); White Blood Count 15.1 10^3/uL (3.5-10.8)
[2019-05-01 06:18] LABS: Albumin 2.4 g/dL (3.2-5.2); Albumin/Globulin Ratio 1.1 (1-3); BUN/Creatinine Ratio 28.4 (8-20); Calcium 7.5 mg/dL (8.6-10.3); Globulin 2.2 g/dL (2-4); Potassium 3.7 mmol/L (3.5-5.0); Total Bilirubin 0.9 mg/dL (0.2-1.0); Total Protein 4.6 g/dL (6.4-8.9)
[2019-05-01] MEDS: Metoprolol Tartrate TAB* 25 MG PO SCH ×2 (09:29→20:57)
[2019-05-01] MEDS: Rivaroxaban TAB(*) 15 MG PO SCH (09:29)
[2019-05-01] MEDS: Lansoprazole SUSP* ORALSYR 3 MG/ML PO SCH (09:31)
[2019-05-01] MEDS: Gabapentin CAP(*) 100 MG PO SCH ×2 (09:32→20:57)
--- NOTE | 2019-05-01 12:36 | PN ---
Subjective Date of Service: 05/01/19 Interval History: Ms. Perry states that she doesn't remember why she was here, but does recall that she "lost my voice" and "learned how to talk again." She denies confusion , abdominal pain, n/v/d. She believes her last BM was today, confirmed by nursing. No other complaints today. TF has been d/c and patient is tolerating PO intake, but needs prompting. Family History: Unchanged from Admission Social History: Unchanged from Admission Past Medical History: Unchanged from Admission Objective Active Medications: Bisacodyl (Dulcolax Supp*) 10 mg IN DAILY PRN PRN Reason: CONSTIPATION Gabapentin (Neurontin Cap(*)) 100 mg PO BID [facility] Last Admin: 05/01/19 09:32 Dose: Not Given Heparin Sodium (Porcine) (Heparin Flush Picc/Ml/Cvc(*)) 1 ml FLUSH 0600,1800 [facility]; Protocol Last Admin: 05/01/19 05:40 Dose: 1 ml Ceftriaxone Sodium 2 gm/ (Sodium Chloride) 100 mls @ 200 mls/hr IVPB Q24H [facility] Last Admin: 04/30/19 15:02 Dose: 200 mls/hr Lansoprazole (Lansoprazole Susp* Oralsyr) 30 mg PO DAILY [facility] Last Admin: 05/01/19 09:31 Dose: 30 mg Metoprolol Tartrate (Lopressor Iv*) 5 mg IV Q6H PRN PRN Reason: HEART RATE/PULSE GREATER THAN: Last Admin: 04/29/19 03:16 Dose: 5 mg Metoprolol Tartrate (Lopressor Tab*) 50 mg PO BID [facility] Last Admin: 05/01/19 09:29 Dose: 50 mg Morphine Sulfate (Morphine Inj (Syringe))*) 2 mg IV Q4H PRN PRN Reason: PAIN - SEVERE Last Admin: 05/01/19 01:40 Dose: 2 mg Ondansetron HCl (Zofran Inj*) 4 mg IV Q6H PRN PRN Reason: NAUSEA Oxycodone HCl (Roxycodone Tab*) 5 mg PO Q6H PRN PRN Reason: PAIN - MODERATE Last Admin: 05/01/19 03:11 Dose: 5 mg Polyethylene Glycol/Electrolytes (Miralax (17 Gm Dose Sam)) 17 gm PO DAILY PRN PRN Reason: CONSTIPATION Last Admin: 04/23/19 17:25 Dose: 17 gm Prednisone (Deltasone 5 Mg Tab) 5 mg PO MOWEFR [facility] Last Admin: 04/30/19 09:53 Dose: 5 mg Rivaroxaban (Xarelto(*)) 15 mg PO DAILY [facility] Last Admin: 05/01/19 09:29 Dose: 15 mg Vital Signs: Temp Pulse Resp BP Pulse Ox 99.8 F 103 16 119/76 97 05/01/19 08:21 05/01/19 08:21 05/01/19 08:21 05/01/19 08:21 05/01/19 08:21 Oxygen Devices in Use Now: None Appearance: Ms. Perry is an elderly white woman who is sitting in bed. She is breathing comfortably on RA and appears to be in no acute distress. She is mildly confused, but A/O x3. Eyes: No Scleral Icterus, PERRLA Ears/Nose/Mouth/Throat: NL Teeth, Lips, Gums, Clear Oropharnyx, Mucous Membranes Moist Neck: NL Appearance and Movements; NL JVP, Trachea Midline Respiratory: Symmetrical Chest Expansion and Respiratory Effort, Clear to Auscultation Cardiovascular: NL Sounds; No Murmurs; No JVD, No Edema, - - irregular Abdominal: - - mild abdominal distention; nontender to palpation; negative Huang's sign. Extremities: No Edema, No Clubbing, Cyanosis, - - b/l LE with brawny skin changes, dry, flaking skin Neurological: Alert and Oriented x 3 Result Diagrams: 05/01/19 05:56 05/01/19 05:56 Microbiology and Other Data: Microbiology 04/21/19 20:05 Aerobic Blood Culture - Final Blood Venous Klebsiella Variicola Escherichia Coli Anaerobic Blood Culture - Final Escherichia Coli Klebsiella Variicola 04/21/19 20:05 Aerobic Blood Culture - Final Blood Venous Escherichia Coli Klebsiella Variicola 04/21/19 22:43 Urine Culture - Final Urine Klebsiella Variicola 04/22/19 01:31 Nasal Screen MRSA (PCR) - Final Nasal Mrsa Not Detected Assess/Plan/Problems-Billing Assessment: Ms. Perry is a 79 yo F with PMH of aflutter, melanoma, Crohn's, GERD, neuropathy, HTN, chronic York d/t urinary retention, pressure ulcers; presented with septic shock requiring pressors, with a suspect source of cholangitis. - Patient Problems (1) Cholangitis Comment: - CT on admission showing choledocholithiasis - Appreciate GI consult - ERCP 04/23: 3 stones delivered, 1 retained, CBD stent placed - Transaminitis improving - Will need outpatient follow up with Dr. Lima and likely cholecystectomy - Continue ceftriaxone (day 11/18) (2) Bacteremia Comment: - BC positive for Klebsiella and E. coli - Survelliance cultures NTD - Continue ceftriaxone (day 11/18) (3) Toxic metabolic encephalopathy Comment: - Back to baseline mental status as of 04/29 AM - Code Long 04/24 d/t word finding difficulty; was deemed not a candidate for tPA - Appreciate Neuro consult - MRI brain unremarkable - EEG showing findings consistent with metabolic encephalopathy; also did not improve with benzos, so seizures have been ruled out - Suspected encephalopathy r/t cefepime and elevated ammonia - D/c lactulose and monitor mental status (4) Severe protein-calorie malnutrition Comment: - Now tolerating PO diet - Swallow eval 04/28: pureed texture, thin liquids okay - NG removed 04/29 (5) UTI (urinary tract infection) Comment: - York catheter-related, present on admission - Urine culture growing Klebsiella - York changed 04/27 - Continue ceftriaxone (6) Thrombocytopenia Comment: - Platelets trending down, now low, but stable - Suspect secondary to sepsis - No evidence of bleeding, but stool occult was positive (7) Anemia Comment: - New since admission - Suspect secondary to sepsis - Stool occult positive without obvious or melana BRBPR - H&H remains stable since AC was restarted (8) Atrial fibrillation/flutter Comment: - Intermittent RVR, possibly corresponding with episodes of pain - GI okay with restarting AC - Continue metoprolol (increased to 50 mg BID), Xarelto (9) Elevated troponin Comment: - Peaked at 0.61 - No EKG changes or reports of CP - Suspect demand ischemia in the setting of severe sepsis and afib with RVR (10) Cervical spondylosis with myelopathy Comment: -soft collar when OOB or ambulating (11) HTN (hypertension) Comment: -SBP well controlled, 110-140's -continue metoprolol (12) Chronic indwelling York catheter Comment: - Secondary to chronic urinary retention - York changed 04/27 (13) Septic shock Comment: - Resolved; still has mild leukocytosis, but this may potentially be r/t steroids - Septic shock on admission with tachycardia, tachypnea, elevated lactic, and hypotensive requiring pressors - Source is cholangitis and UTI (14) Acute renal failure superimposed on stage 3 chronic kidney disease Comment: - resolved - Suspected secondary to sepsis and hypotension (15) Crohn's colitis Comment: - Continue prednisone (16) Peripheral neuropathy Comment: - Continue gabapentin (17) GERD (gastroesophageal reflux disease) Comment: - Continue pantoprazole (18) DVT prophylaxis Comment: - Xarelto (19) DNR (do not resuscitate) Comment: Status and Disposition: Inpatient. Anticipate d/c to [facility] for YARIEL, likely in the next 1-2 days.
[2019-05-01] MEDS: cefTRIAXone(*) 2 GM in NS 0.9% 100 ML* 100 ML IVPB SCH (15:04)
[2019-05-01] MEDS ORDERED: NS 0.9% 1000 ML** 1,000 ML IV SCH (17:45)
[2019-05-02 06:48] LABS: ABS Lymphocytes 0.7 10^3/ul (1.0-4.8); ABS Neutrophils 12.6 10^3/ul (1.5-7.7); Eosinophil % 0.3 %; Hematocrit 29 % (35-47); Hemoglobin 9.6 g/dL (12.0-16.0); Lymphocyte % 4.6 %; Mean Corpuscular HGB Conc 33 g/dL (31-36); Mean Corpuscular Hemoglobin 32 pg (27-31); Mean Corpuscular Volume 96 fL (80-97); Mean Platelet Volume 9.9 fL (7.4-10.4); Platelet Count 96 10^3/uL (150-450); Red Blood Count 3.04 10^6 /uL (3.70-4.87); Red Cell Distribution Width 15 % (10-15); White Blood Count 14.3 10^3/uL (3.5-10.8)
[2019-05-02 06:53] LABS: BUN/Creatinine Ratio 25.8 (8-20); Calcium 7.6 mg/dL (8.6-10.3); EGFR Non-African American 61.2 (>60)
[2019-05-02] MEDS: Gabapentin CAP(*) 100 MG PO SCH (08:32)
[2019-05-02] MEDS: Metoprolol Tartrate TAB* 25 MG PO SCH (08:32)
[2019-05-02] MEDS: Rivaroxaban TAB(*) 15 MG PO SCH (08:32)
[2019-05-02] MEDS: Lansoprazole SUSP* ORALSYR 3 MG/ML PO SCH (08:33)
[2019-05-02 12:02] VITALS: BP 118/69
--- NOTE | 2019-05-02 12:30 | DS ---
AMENDED REPORT NOW INCLUDES DESIGNATED COSIGNER - ESIGNED BEFORE ADJUSTMENTS CC: Dr. Marty Corey; Dr. Franc Lima * DATE OF ADMISSION: 04/22/2019. DATE OF DISCHARGE: 05/02/2019. PRIMARY CARE PHYSICIAN: Dr. Corey. PHARMACOLOGY TEACHER: Dr. Franc Lima. ATTENDING PHYSICIAN: Dr. Birdie Valdes * (dictated by LUZ ELENA Ross). PRIMARY DIAGNOSES: 1. Cholangitis. 2. Urinary tract infection. 3. Bacteremia, E. coli, klebsiella. 4. Septic shock. 5. Toxic metabolic encephalopathy. 6. Severe protein calorie nutrition. SECONDARY DIAGNOSES: 1. Atrial flutter, on anticoagulation. 2. Hypertension. 3. Crohn's. 4. Melanoma. 5. Neuropathy. 6. GERD. 7. 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 8. Left foot ulcer. 9. Right gluteal decubitus ulcer. STUDIES WHILE IN THE HOSPITAL: 1. CT abdomen and pelvis: Impression: Cholelithiasis with distended gallbladder. There is distention of CBD measuring 16 mm with several large distal CBD calculi consistent with choledocholithiasis. Nonobstructing bilateral renal calculi with mild right hydronephrosis and question of 2 mm calculus in the distal CBD. Mild distention and retention of contrast in the distal esophagus which may reflect poor peristaltic clearance obstruction at the level of the GE junction is not excluded. Mild stool distention of the rectum which may reflect impaction. 2. Gallbladder ultrasound: Impression: Mild hepatomegaly. Intrahepatic biliary dilatation and dilated CBD measuring 18 mm with sludge. Distended gallbladder with sludge and stones and slight wall thickening measuring 4 mm. Slight distention of the pancreatic duct measuring 4 to 5 mm. Mild right hydronephrosis. Urinary bladder debris. 3. Chest x-ray: Lines and tubes as above. Cardiomegaly. 4. CT brain without: Impression: There has been little change from 2016. No acute interval intracranial process is identified. Minimal chronic ischemic white matter change. 5. Transthoracic echocardiogram: LV systolic function normal. Estimated EF 60 to 65 percent. Wall motion normal. No regional wall motion abnormalities. Severely dilated RV. Wall thickness increased. Systolic function mildly to moderately reduced. LA severely dilated. Trace MR. No evidence of . Trace to mild AR. Severe TR. No significant pericardial effusion. Pulmonary artery systolic pressure could not be accurately determined, but appears to be increased. 6. Ultrasound renal bladder: Impression: Interval decompression of the right collecting system. No appreciably hydronephrosis. Urinary bladder is incompletely collapsed around a York catheter. Neither ureteral jet could be detected. Bilateral nephrolithiasis. Left pleural effusion. Small volume ascites. Endometrial fluid present. 7. MRI brain: Impression: Motion limited examination without definite acute intracranial abnormality. 8. CT brain without: Impression: No acute intracranial abnormality by CT. Anterolisthesis of C2 on C3 resulting in severe spinal canal stenosis. Mild chronic small vessel ischemic disease is likely. 9. MRA neck without: Impression: Examination is limited by excessive patient motion. No occlusion or gross high grade stenosis. 10. Abdomen/KUB: Impression: Severe gaseous distention. No dilated loops of bowel. 11. EEG: Impression: Abnormal EEG due to presence of diffuse slowing with abundance of triphasic waves. Findings suggestive of nonspecific mild to moderate diffuse encephalopathy with triphasic waves seen, particularly with Cefepime therapy or metabolic encephalopathy. 12. CT brain without: Impression: No acute intracranial abnormality by CT. Known severe spinal canal stenosis is incompletely imaged. Mild chronic small vessel ischemic disease is likely. 13. Transthoracic echocardiogram: Summary: Atrial septum: No defect or PFO identified. Bubble study was negative. 14. Left upper extremity Doppler: Impression: Limited evaluation of the left subclavian vein secondary to the presence of a central line. No visualized left upper extremity deep vein thrombosis. CONSULTATIONS WHILE IN THE HOSPITAL: 1. Gastroenterology: Impression: 79-year-old woman with abdominal pain and signs of sepsis. Gallstones seen in gallbladder and common duct on ultrasound and CT. Chemistries confirmed hepatobiliary area is source of problem. Unfortunately septic and anticoagulated. Never had a thromboembolic event, but even if she had the anticoagulation, will have to be held then reversed in order to undergo ERCP. Current plan is to give Kcentra, Cefepime and then follow. 2. Cardiology consult: The patient is in chronic A-fib. Heart rate today is 130. I think heart rate is appropriate and reactive to situation. Do not think rate control agents are necessary. The patient will be continued to give supportive measures for her current infection. The patient can be seen in follow-up with Dr. Watters as an outpatient. 3. Neurology: The patient's neurological exam predominantly notable for mixed aphasia, left to right disorientation, tactile extinction on the right. Suspect acute embolic stroke in the setting of A-fib/flutter. Off anticoagulation. Spoke with son who agreed not to proceed with alteplase therapy. Monitor SBP. IV hydration. Aspirin 325. 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 TTE with bubble. MRI brain without contrast. MRI head and neck without contrast. Hold AC if she has a large infarct. Consider soft cervical collar due to history of severe spinal stenosis. 4. Palliative care: Discussed MOL[facility]. Patient with DNR/DNI, but does want a trial of BiPAP/Vapotherm. Plan is to go to rehab at [facility] and eventually home. She has been at [facility] before after foot surgery. Cognitively, this is the most alert she has been since getting sick. Support given. Not hospice eligible. PROCEDURES WHILE IN THE HOSPITAL: ERCP with sphincterotomy and balloon extraction of common bile duct stones, basket lithotripsy of common bile duct stone, placement of 7-Georgian 7 cm double pigtail stent by Dr. Lima. Status post endoscopic sphincterectomy. Common bile duct stones, three delivered, others partially abraded and crushed, and one defiant stone is still present in the distal duct. Common bile duct stent 7-Georgian [address] The patient will be seen in follow- up to discuss options. DISCHARGE MEDICATIONS: Home medications: 1. Ascorbic acid 500 mg p.o. daily. 2. Cholecalciferol 1,000 units p.o. daily. 3. Cyanocobalamin 1,000 mcg p.o. daily. 4. Lomotil one tab p.o. b.i.d. prn. 5. Purinethol 50 mg p.o. daily. 6. Multivitamin one cap p.o. daily. 7. Oxybutynin 5 mg p.o. daily. 8. Prednisone 5 mg p.o. Sunday, Sunday, Sunday. 9. Pyridoxine 50 mg p.o. daily. 10. Raloxifene 60 mg p.o. daily. 11. Ranitidine 10 ml p.o. b.i.d. 12. Rivaroxaban 15 mg p.o. daily. 13. Gabapentin 100 mg p.o. b.i.d. 14. Metoprolol Tartrate 50 mg p.o. b.i.d. 15. Oxycodone 5 mg p.o. q.8 hours prn pain. 16. Ceftriaxone 2 gm IV times 4 more days. New home medications: 1. Ceftriaxone 2 gm IV daily times a total of 4 days (last dose 05/05/2019). 2. Oxycodone 5 mg p.o. q.8 hours prn. Changed home medications: 1. Gabapentin 100 mg p.o. b.i.d. 2. Metoprolol Tartrate 50 mg p.o. b.i.d. Discontinued home medications: 1. Vicodin. 2. Losartan. 3. Spironolactone. 4. Tramadol. HISTORY OF PRESENT ILLNESS/HOSPITAL COURSE: Ms. Perry is a 79-year-old female with a past medical history of atrial flutter, on anticoagulation, Crohn' s status post two bowel resections, melanoma, neuropathy, hypertension, urinary retention with York catheter in place who presented to the ER with complaints of generalized weakness. For full and complete details, please see the history and physical dictated by Antoine Watkins NP. In short, the patient presented with the above symptoms. She was found to be in septic shock with choledocholithiasis. The patient was admitted to the Intensive Care Unit and was started on Levophed. Gastroenterology was notified and the plan was for an EGD, although prior to this the patient was weaned from Levophed and was given a dose of Kcentra for rivaroxaban reversal. After this, an EGD was performed and three stones were delivered from the CBD and one stone was retained. A CBD stent was placed and recommendations were to follow-up with Dr. Lima, Gastroenterology, outpatient for further management. The patient was started on Cefepime and will receive a total of 14 days of antibiotic therapy. She will continue antibiotic therapy in the outpatient setting. The patient has a chronic York. Urinalysis was obtained and revealed 3+ LE, negative nitrates, 1+ bacteria. Urine culture resulted showing klebsiella susceptible to Cefepime. Blood cultures were obtained and revealed E. coli and klebsiella. It is suspected that the E. coli bacteria was due to the patient's cholangitis. Repeat blood cultures showed no growth times five days. She will continue Cefepime for cholangitis and urinary tract infection. Postoperatively, a code bautista stroke assessment was called on the patient due to mixed aphasia, left to right disorientation, and tactile extinction on the right. Neurology responded to this and made recommendations. The patient was deemed not to be a candidate for alteplase. The patient received a full stroke work up. Brain CT and MRI were unremarkable, as was neck MRA. An echo shows no LVO. An electroencephalogram was obtained and was abnormal with abundance of triphasic waves which are seen with Cefepime therapy or metabolic encephalopathy. Neurology continued to follow along. There was low suspicion for stroke and there was no LVO or large infarct. Neurology recommended supportive care and restart AC when cleared by Surgery. The patient was placed on aspirin which was discontinued once Xarelto was restarted. During her stay, the patient was continuously monitored. She was encephalopathic with some aphasia at initial presentation, but this resolved by the end of her stay. She was weaned off of her Gabapentin. Ativan test was performed at bedside, but patient did not respond and therefore it is unlikely that she has a seizure disorder. Ultimately, diagnosis of metabolic encephalopathy was favored and again the patient improved by the time of discharge. The patient was noted to have severe protein calorie malnutrition. She was placed on an NG tube as she was not tolerating p.o. intake. This was eventually weaned off. A swallow study was ordered and recommended pureed textures with thin liquids. The patient tolerated this well and her appetite has improved, although she does require some encouragement with feedings. At the time of discharge, the patient states that she is feeling tired. She is eating and drinking well. She does not feel confused. She denies dizziness, lightheadedness, headache, vision changes, chest pain, shortness of breath, cough, fever, chills, abdominal pain, nausea, vomiting, and diarrhea. She denies mild arthralgias. She reports she has not been up walking, but has been transferred via lift. Ms. Perry is stable for discharged. PHYSICAL EXAMINATION: General: Ms. Perry is a thin, cachetic-appearing, elderly, white female who is sitting in her chair with her lower extremities elevated. She appears to be in no acute distress. She is breathing comfortably on room air. She has a nasal cannula in place, but this is not turned on and there is no oxygen going through. Vital signs: Temperature 97.7 temporal, heart rate 60, respiratory rate 18, oxygen saturation 97 percent on room air, blood pressure 131/76. HEENT: PERRL, EOMI, nonicteric sclerae. Hearing is grossly intact. Oral mucous membranes are mildly dry. Tongue is at midline. Palate elevated symmetrically. Oropharynx is clear without lesions, erythema or exudate. Cardiovascular: Irregularly irregular with S1, S2 present. There are no murmurs, rubs, clicks, or gallops. There is no JVD. There is no peripheral edema. Pulmonary: Symmetrical chest expansion without use of accessory muscles. Clear to auscultation bilaterally without rhonchi, wheezes, or rales. Abdomen: Bowel sounds normoactive in all quadrants. There is mild abdominal distention. The abdomen is soft. There is no tenderness to palpation. Huang sign is negative. Musculoskeletal: Full range of motion without pain or deformities. Neuro: The patient is awake. She is alert and oriented times three. Cranial nerves II through XII are grossly intact. She moves all of her extremities. Her motor strength is 5/5 bilaterally in upper and lower extremities. Charge Coordinator strength is equal. DISCHARGE PLAN: Ms. Perry will be discharged to [facility]. MEDICATIONS: 1. Complete 14 day course of Ceftriaxone; last dose to be given 05/05/2019. 2. Please see above medication changes. EDUCATION : 1. Follow-up with primary care provider upon discharge from subacute rehab. 2. Follow-up with Dr. Lima for further management; will likely need cholecystectomy. 3. Follow-up with Dr. Watters, Cardiology, for atrial flutter. 4. Follow-up with Neurology for further management of cervical spine stenosis. 5. Return to the ER or nearest hospital for any concerns. CONDITION ON DISCHARGE: Fair. DIET: 1. Pureed. 2. Heart healthy. ACTIVITY: 1. As tolerated. 2. Continue PT/OT at [facility]. 3. Continue to wear soft cervical collar with ambulation and while out of bed. This is a summarized report of a complex medical history and hospital stay. For further details, please see the entire medical record. TIME SPENT: Approximately 40 minutes were spent on this discharge, greater than half of that time was spent [id number] with the patient discussing discharge plans and instructions. LUZ ELENA KYLE [id number]/[facility] #: [id number] MAIN
[2019-05-02] MEDS: cefTRIAXone(*) 2 GM in NS 0.9% 100 ML* 100 ML IVPB SCH (16:00)
== END 2019-05-02 16:06 | DRG 871 ==
LOC: ED 19:33 → ICU 23:44 → MEDTELE 04-24 14:22 → ICU 04-24 21:22 → MEDTELE 04-27 18:15
PROVIDERS: ADMIT Nurse Practitioner Family; ATTEND Internal Medicine
PROC: 05H633Z Insertion of Infusion Device into Left Subclavian Vein, Percutaneous Approach (ICD-10-PCS; 2019-04-21)
PROC: 3E033XZ Introduction of Vasopressor into Peripheral Vein, Percutaneous Approach (ICD-10-PCS; 2019-04-21)
PROC: 30283B1 Transfusion of Nonautologous 4-Factor Prothrombin Complex Concentrate into Vein, Percutaneous Approach (ICD-10-PCS; 2019-04-22)
PROC: 0F798DZ Dilation of Common Bile Duct with Intraluminal Device, Via Natural or Artificial Opening Endoscopic (ICD-10-PCS; 2019-04-24)
PROC: 0FC98ZZ Extirpation of Matter from Common Bile Duct, Via Natural or Artificial Opening Endoscopic (ICD-10-PCS; principal; 2019-04-24 17:00)
PROC: 4A00X4Z Measurement of Central Nervous Electrical Activity, External Approach (ICD-10-PCS; 2019-04-25)
PROC: 02HV33Z Insertion of Infusion Device into Superior Vena Cava, Percutaneous Approach (ICD-10-PCS; 2019-05-02)
DX: A41.51 Sepsis due to Escherichia coli [E. coli] (principal); R65.21 Severe sepsis with septic shock; G92 Toxic encephalopathy; E43 Unspecified severe protein-calorie malnutrition; K50.90 Crohn's disease, unspecified, without complications; Z68.1 Body mass index [BMI] 19.9 or less, adult; I48.92 Unspecified atrial flutter; N17.9 Acute kidney failure, unspecified; K80.30 Calculus of bile duct with cholangitis, unspecified, without obstruction; I48.20 Chronic atrial fibrillation, unspecified; E87.2 Acidosis; N13.30 Unspecified hydronephrosis; N39.0 Urinary tract infection, site not specified; M47.12 Other spondylosis with myelopathy, cervical region; R47.01 Aphasia; A41.59 Other Gram-negative sepsis; E86.0 Dehydration; N20.0 Calculus of kidney; K21.9 Gastro-esophageal reflux disease without esophagitis; M19.90 Unspecified osteoarthritis, unspecified site; M06.9 Rheumatoid arthritis, unspecified; M81.0 Age-related osteoporosis without current pathological fracture; F41.9 Anxiety disorder, unspecified; G62.9 Polyneuropathy, unspecified; Z96.651 Presence of right artificial knee joint; R33.8 Other retention of urine; N32.81 Overactive bladder; R13.10 Dysphagia, unspecified; I71.2 Thoracic aortic aneurysm, without rupture; M48.02 Spinal stenosis, cervical region; B96.1 Klebsiella pneumoniae [K. pneumoniae] as the cause of diseases classified elsewhere; D69.6 Thrombocytopenia, unspecified; R79.89 Other specified abnormal findings of blood chemistry; D64.9 Anemia, unspecified; N18.3 Chronic kidney disease, stage 3 (moderate); I07.1 Rheumatic tricuspid insufficiency; I12.9 Hypertensive chronic kidney disease with stage 1 through stage 4 chronic kidney disease, or unspecified chronic kidney disease; M41.9 Scoliosis, unspecified; Z89.422 Acquired absence of other left toe(s); Z88.8 Allergy status to other drugs, medicaments and biological substances; Z88.2 Allergy status to sulfonamides; Z88.0 Allergy status to penicillin; Z85.820 Personal history of malignant melanoma of skin; Z87.891 Personal history of nicotine dependence; Z88.1 Allergy status to other antibiotic agents
CPT/HCPCS: 36415; 70450; 70547; 70551; 71045; 74018; 74176; 74330; 76705; 76770; 80048; 80053; 81003; 81015; 82140; 82272; 82533; 82607; 82803; 83036; 83605; 83690; 83735; 84100; 84443; 84484; 85025; 85049; 85060; 85362; 85384; 85610; 85730; 86140; 86850; 86900; 86901; 87040; 87077; 87086; 87186; 87205; 87641; 93005; 93306; 93308; 95816; 99223; 99285; A9270-GY; C1751; C1876; C9132; J0692; J0696; J1170; J1644; J1650; J1720; J2060; J2250; J2270; J2543; J3010; J3430; J3475; J3490; J7512